=== PATIENT | female | born 1965 | race Caucasian/White ===

== ENCOUNTER 2022-05-29 15:59 | Day surgery (SDC) | payer OTHER ==
[~2022-05-29] VITALS: Ht 162.7 cm; Wt 52.3 kg
[~2022-05-29 15:59] MED LIST: ADAL40SY SQ; ALEN10TA8 PO; ERGO1250 PO; FAMO20TA25 PO; FURO40TA4 PO; HYDR-700 PO; LACT10SO27 PO; LORA10TA7 PO; MEGE40TA5 PO; MELA10TA2 PO; NITR-65 PO; PANT40TA2 PO; PANT40TA52 PO; PARO10TA3 PO; POTA10TA37 PO; SENN15TA5 PO; SPIR100T PO; SPIR100T4 PO; SUCR1TAB PO; TRM50T PO; VITA-189 PO
[2022-05-29] MEDS ORDERED: fentaNYL INJ 100 MCG/2 ML AMP IVP STA (16:19)
[2022-05-29 16:25] LABS: NEUTROPHILS % (AUTO) 82 % (42-75)
--- NOTE | 2022-05-29 16:25 | ED Head Injury ---
General Chief Complaint: Abdominal/GI Problems Stated Complaint: VOMITING BLOOD Source: patient Exam Limitations: no limitations History of Present Illness Date Seen by Provider: May 29, 2022 Time Seen by Provider: 16:21 Initial Comments Patient is a 57-year-old female who presents ED with head pain, vomiting blood. She states Saturday she slipped on some ice falling hitting the back of her head on the floor in her kitchen. No loss of conscious or blood thinners. She had a throbbing headache but did take some ibuprofen and Tylenol. She states she slept most of the day on Saturday. Attempted to walk her dog a few times but but felt dizzy lightheaded. She has had some hot flashes with chills. She states she has attempted to eat but has had decreased appetite. No visual changes, unilateral muscle weakness. She states last night she threw up for the first time. Threw up twice today and noted blood clots described as dark in her blood. Her last episode she noticed some bright red spots. Denies any specific abdominal pain but did have some cramping in her abdomen secondary to the vomit. She has been taking ibuprofen with improvement of her head pain. Denies alcohol use history of GI bleed. Denies of any rectal bleeding, urinary symptoms. She also has associated neck pain with her headache. Head pain has improved some. She states she has had intermittent dizziness with head pain secondary to the fall. Denies fever,, middle lower back pain, dysuria, hemat uria, current chest pain. She also reports indigestion with some chest discomfort at this time Allergies and Home Medications Allergies Coded Allergies: Sulfa (Sulfonamide Antibiotics) (Verified Allergy, Unknown, 05/29/22) cortisone (Verified Allergy, Unknown, 05/29/22) Patient Home Medication List Home Medication List Reviewed: Yes Adalimumab (Humira Pen) 40 Mg/0.4 Ml [email or web address], 40 MG INJ EVERY 14 DAYS, (Reported) Entered as Reported by: TILA DE LA GARZA on 05/30/22 1010 Last Action: Reviewed Alendronate Sodium (Alendronate Sodium) 10 Mg Tablet, 10 MG PO HS, (Reported) Entered as Reported by: TILA DE LA GARZA on 05/30/22 1010 Last Action: Reviewed Calcium Carbonate (Calcium) 600 Mg Calcium (1500 Mg) Tablet, 600 MG PO DAILY, (Reported) Entered as Reported by: TILA DE LA GARZA on 05/30/221009 Last Action: Reviewed Chlorpheniramine Maleate (Chlortabs) 4 Mg Tablet, 4-8 MG PO BID PRN for ALLERGY SYMPTOMS, (Reported) Entered as Reported by: TILA DE LA GARZA on 05/30/221009 Last Action: Reviewed Cyanocobalamin (Vitamin B-12) (Vitamin B-12) 500 Mcg Tablet, 500 MCG PO DAILY, (Reported) Entered as Reported by: TILA DE LA GARZA on 05/30/221009 Last Action: Reviewed Furosemide (Furosemide) 40 Mg Tablet, 40 MG PO DAILY, (Reported) Entered as Reported by: TILA DE LA GARZA on 05/30/221009 Last Action: Reviewed Hydroxyzine HCl (Hydroxyzine HCl) 25 Mg Tablet, 25 MG PO DAILY, (Reported) Entered as Reported by: TILA DE LA GARZA on 05/30/221009 Last Action: Reviewed Lactulose (Lactulose) 10 Gram/15 Ml Solution, 15 ML PO BID, (Reported) Entered as Reported by: TILA DE LA GARZA on 05/30/221009 Last Action: Reviewed Pantoprazole Sodium (Pantoprazole Sodium) 40 Mg Tablet.dr, 40 MG PO BID, (Reported) Entered as Reported by: TILA DE LA GARZA on 05/30/221009 Last Action: Reviewed Sennosides (Laxative) 25 Mg Tablet, 50 MG PO BID, (Reported) Entered as Reported by: TILA DE LA GARZA on 05/30/221009 Last Action: Reviewed Spironolactone (Spironolactone) 100 Mg Tablet, 100 MG PO HS, (Reported) Entered as Reported by: TILA DE LA GARZA on 05/30/221009 Last Action: Reviewed Discontinued Medications Sennosides (Laxative Pills) 15 Mg Tablet, 15 MG PO, (Reported) Discontinued Reason: Duplicate Order Entered as Reported by: TILA DE LA GARZA on 05/30/221009 Last Action: Discontinued Review of Systems Review of Systems Constitutional: chills; No diaphoresis; malaise, weakness Eyes: Denies Blindness, Denies Blurred Vision, Denies Drainage, Denies Photophobia, Denies Previous Injury, Denies Contact Lenses Ears, Nose, Mouth, Throat: denies ear pain, denies ear discharge Respiratory: No cough, No dyspnea on exertion Cardiovascular: chest pain Gastrointestinal: abdominal pain, hematemesis, heartburn, nausea, vomiting Genitourinary: No decreased output, No discharge Musculoskeletal: No back pain, No joint pain; muscle pain, muscle stiffness, neck pain Skin: No change in color, No change in hair/nails All Other Systems Reviewed Negative Unless Noted: Yes Physical Exam Vital Signs Vital Signs - First Documented 05/29/22 05/29/22 15:59 21:05 Temp 36.8 Pulse 107 Resp 18 B/P (MAP) 115/79 (91) Pulse Ox 100 O2 Delivery Room Air Capillary Refill : Height, Weight, BMI Height: '" Weight: lbs. oz. kg; BMI Method: General Appearance: WD/WN, no apparent distress HEENT: PERRL/EOMI, normal ENT inspection, TMs normal, pharynx normal Neck: non-tender, full range of motion, normal inspection Cardiovascular: regular rate, rhythm, no edema, no gallop, no JVD, no murmur Respiratory: chest non-tender, lungs clear, normal breath sounds, no respiratory distress, no accessory muscle use Gastrointestinal: normal bowel sounds, non tender, soft, no organomegaly, no pulsatile mass Back: normal inspection, no CVA tenderness Extremities: normal range of motion, non-tender, normal inspection, no pedal e ashley, no calf tenderness Skin: normal color, warm/dry Candi Coma Score Best Eye Response: (4) Open Spontaneously Best Verbal Response: (5) Oriented Best Motor Response: (6) Obeys Commands Samaria Total: 15 Progress/Results/Core Measures Results/Orders Lab Results Laboratory Tests Test 05/29/22 16:04 05/29/22 17:02 05/29/22 17:45 05/30/22 05:32 Range/Units White Blood Count 4.2 L 2.5 L 4.3-11.0 10^3/uL Red Blood Count 3.28 L 2.95 L 3.80-5.11 10^6/uL Hemoglobin 8.2 L 7.5 L 11.5-16.0 g/dL Hematocrit 28 L 25 L 35-52 % Mean Corpuscular Volume 85 86 80-99 fL Mean Corpuscular Hemoglobin 25 25 25-34 pg Mean Corpuscular Hemoglobin Concent 30 L 30 L 32-36 g/dL Red Cell Distribution Width 19.4 H 20.0 H 10.0-14.5 % Platelet Count 46 L 30 *L 130-400 10^3/uL Mean Platelet Volume 9.0-12.2 fL Immature Granulocyte % (Auto) 1 0 % Neutrophils (%) (Auto) 82 H 60 42-75 % Lymphocytes (%) (Auto) 10 L 25 12-44 % Monocytes (%) (Auto) 6 10 0-12 % Eosinophils (%) (Auto) 2 5 0-10 % Basophils (%) (Auto) 1 1 0-10 % Neutrophils # (Auto) 3.5 1.5 L 1.8-7.8 10^3/uL Lymphocytes # (Auto) 0.4 L 0.6 L 1.0-4.0 10^3/uL Monocytes # (Auto) 0.3 0.2 0.0-1.0 10^3/uL Eosinophils # (Auto) 0.1 0.1 0.0-0.3 10^3/uL Basophils # (Auto) 0.0 0.0 0.0-0.1 10^3/uL Immature Granulocyte # (Auto) 0.0 0.0 0.0-0.1 10^3/uL Percent Immature Platelet Fraction 8.3 H 8.4 H 0.0-7.6 % Prothrombin Time 18.0 H 12.2-14.7 SEC INR Comment 1.4 0.8-1.4 Activated Partial Thromboplast Time 38 H 24-35 SEC Sodium Level 136 137 135-145 MMOL/L Potassium Level 3.2 L 3.3 L 3.6-5.0 MMOL/L Chloride Level 104 109 H 98-107 MMOL/L Carbon Dioxide Level 17 L 17 L 21-32 MMOL/L Anion Gap 15 H 11 5-14 MMOL/L Blood Urea Nitrogen 8 5 L 7-18 MG/DL Creatinine 0.75 0.59 L 0.60-1.30 MG/DL Estimat Glomerular Filtration Rate 93 106 BUN/Creatinine Ratio 11 8 Glucose Level 129 H 83 70-105 MG/DL Calcium Level 8.3 L 7.1 L 8.5-10.1 MG/DL Corrected Calcium 9.1 8.5-10.1 MG/DL Total Bilirubin 2.2 H 0.1-1.0 MG/DL Aspartate Amino Transf (AST/SGOT) 122 H 5-34 U/L Alanine Aminotransferase (ALT/SGPT) 43 0-55 U/L Alkaline Phosphatase 133 40-136 U/L Troponin I < 0.028 <0.028 NG/ML Total Protein 6.7 6.4-8.2 GM/DL Albumin 3.0 L 3.2-4.5 GM/DL Lipase 161 H 8-78 U/L Serum Alcohol < 10 <10 MG/DL Urine Color YELLOW Urine Clarity SL CLOUDY Urine pH 6.0 5-9 Urine Specific Bryan 1.025 H 1.016-1.022 Urine Protein 2+ H NEGATIVE Urine Glucose (UA) NEGATIVE NEGATIVE Urine Ketones 1+ H NEGATIVE Urine Nitrite POSITIVE H NEGATIVE Urine Bilirubin 2+ H NEGATIVE Urine Urobilinogen 2.0 < = 1.0 MG/DL Urine Leukocyte Esterase 2+ H NEGATIVE Urine RBC (Auto) TRACE-I H NEGATIVE Urine RBC NONE /HPF Urine WBC 50-100 H /HPF Urine Squamous Epithelial Cells 10-25 H /HPF Urine Renal Epithelial Cells NONE /HPF Urine Crystals PRESENT H /LPF Urine Calcium Oxalate Crystals FEW H /LPF Urine Bacteria LARGE H /HPF Urine Casts NONE /LPF Urine Mucus LARGE H /LPF Urine Culture Indicated YES Urine Opiates Screen NEGATIVE NEGATIVE Urine Oxycodone Screen NEGATIVE NEGATIVE Urine Methadone Screen NEGATIVE NEGATIVE Urine Propoxyphene Screen NEGATIVE NEGATIVE Urine Barbiturates Screen NEGATIVE NEGATIVE Ur Tricyclic Antidepressants Screen NEGATIVE NEGATIVE Urine Phencyclidine Screen NEGATIVE NEGATIVE Urine Amphetamines Screen NEGATIVE NEGATIVE Urine Methamphetamines Screen NEGATIVE NEGATIVE Urine Benzodiazepines Screen NEGATIVE NEGATIVE Urine Cocaine Screen NEGATIVE NEGATIVE Urine Cannabinoids Screen NEGATIVE NEGATIVE Lactic Acid Level 1.25 0.50-2.00 MMOL/L Micro Results Microbiology 05/29/22 Urine Culture - Preliminary, Resulted Escherichia coli My Orders Orders - JORDY FAY Ct Head/Cervical Spine Wo (05/29/22 16:16) Cbc With Automated Diff (05/29/22 16:16) Comprehensive Metabolic Panel (05/29/22 16:16) Partial Thromboplastin Time (05/29/22 16:16) Protime With Inr (05/29/22 16:16) Chest 1 View, Ap/Pa Only (05/29/22 16:16) Ekg Tracing (05/29/22 16:16) Troponin I Chase (05/29/22 16:16) Pantoprazole Injection (Protonix Injecti (05/29/22 16:30) Fentanyl Inj (Sublimaze Injection) (05/29/22 16:19) Alcohol (05/29/22 16:44) Urinalysis (05/29/22 16:44) Drug Screen Stat (Urine) (05/29/22 16:44) Ct Abdomen/Pelvis W (05/29/22 16:51) Ns Iv 1000 Ml (Sodium Chloride 0.9%) (05/29/22 16:52) Iohexol Injection (Omnipaque 350 Mg/Ml 1 (05/29/22 17:00) Received Contrast (Hold Metformin- Contr (05/29/22 17:00) Ns (Ivpb) (Sodium Chloride 0.9% Ivpb Bag (05/29/22 17:00) Urine Culture (05/29/22 17:02) Lactic Acid Analyzer (05/29/22 17:28) Blood Culture (05/29/22 17:28) Ceftriaxone 1 Gm Pre-Mix (Rocephin 1 Gm (05/29/22 17:28) Blood Culture (05/29/22 18:20) Lipase (05/29/22 18:36) Occult Blood Stool (05/29/22 19:11) Medications Given in ED Vital Signs/I&O 05/29/22 05/30/22 05/30/22 05/30/22 23:30 01:00 03:30 06:32 Temp 37.6 36.7 Pulse 107 94 95 88 Resp 20 18 B/P (MAP) 110/69 (83) 108/66 (80) Pulse Ox 96 99 O2 Delivery Room Air Room Air 05/30/22 07:54 Temp 37.0 Pulse 89 Resp 18 B/P (MAP) 109/55 (73) Pulse Ox 98 O2 Delivery Room Air 05/30/22 00:00 Intake Total 1000 ml Balance 1000 ml Comment Sinus tachycardia, 115 bpm, QRS duration 87 MS, QTc 425 MS. Departure Communication (Admissions) Time/Spoke to Admitting Phy: 19:[address] Jimenez Communication (PCP) Patient neuro exam unremarkable. Tenderness to occipital and parietal scalp. Patient CT scan of the head and cervical neck was negative for hemorrhaging or fracture. Sinus tachycardia. Blood cultures were ordered secondary to white blood count of 4.2 and tachycardia. She was afebrile. Urinalysis positive for UTI. Patient was given dose of Rocephin. Normal lactic acid. Patient has been having concussion-like symptoms with dizziness, headache, and nausea but reports generalized abdominal discomfort and pain that developed. Hematemesis today. Refused rectal exam. She is not on any blood thinners or excessive NSAID use. History of alcohol abuse. Patient was given 40 mg IV Protonix. She was started on a liter of fluid. Patient had a hemoglobin 8.2 and platelets of 46. Slight elevated coags. She states she does see a liver specialist at . Patient total bilirubin 2.2. Liver enzymes within normal limits except AST of 122. Hypokalemia 3.2. CT abdomen pelvis showed gallbladder wall thickening. Portal hypertension noted. She has no right upper quadrant tenderness suggesting cholecystitis. She did have edema around the duodenum and pancreas suggesting pancreatitis. Pancreas was 161. May have form of duodenitis. No varioceles. History of gastric ulcers. No vomiting here in the ER. Liver cirrhosis noted. No ascites. Due to her hemoglobin and hematemesis and current complaints patient will be admitted for further evaluation. Surgical consult was discussed with Dr. Foote. Likely need EGD for evaluation of hematemesis. clear fluids at this time with recheck lab work in the morning according to Surgery. Continue monitoring hemoglobin. Patient was discussed with Dr. Jimenez who accepts patient. Impression Primary Impression: Hematemesis Additional Impressions: Cirrhosis Head injury UTI (urinary tract infection) Anemia Pancreatitis Disposition: ADMITTED INPATIENT Condition: Stable Admissions Decision to Admit Reason: Admit from ER (General) Decision to Admit/Date: May 29, 2022 Time/Decision to Admit Time: 19:45 JORDY FAY May 29, 2022 16:24
[2022-05-29 16:27] LABS: BASOPHILS % (AUTO) 1 % (0-10); CHLORIDE 104 MMOL/L (98-107); EOSINOPHILS # (AUTO) 0.1 10^3/uL (0.0-0.3); EOSINOPHILS % (AUTO) 2 % (0-10); HEMATOCRIT 28 % (35-52); HEMOGLOBIN 8.2 g/dL (11.5-16.0); LYMPHOCYTES # (AUTO) 0.4 10^3/uL (1.0-4.0); LYMPHOCYTES % (AUTO) 10 % (12-44); MEAN CORPUSCULAR HEMOGLOBIN 25 pg (25-34); MEAN CORPUSCULAR HGB CONC 30 g/dL (32-36); MEAN CORPUSCULAR VOLUME 85 fL (80-99); MONOCYTES # (AUTO) 0.3 10^3/uL (0.0-1.0); MONOCYTES % (AUTO) 6 % (0-12); NEUTROPHILS # (AUTO) 3.5 10^3/uL (1.8-7.8); PLATELET COUNT 46 10^3/uL (130-400); POTASSIUM 3.2 MMOL/L (3.6-5.0); SODIUM 136 MMOL/L (135-145); WHITE BLOOD COUNT 4.2 10^3/uL (4.3-11.0)
[2022-05-29 16:28] LABS: CALCIUM 8.3 MG/DL (8.5-10.1)
[2022-05-29 16:30] LABS: GLUCOSE 129 MG/DL (70-105); TOTAL PROTEIN 6.7 GM/DL (6.4-8.2)
[2022-05-29] MEDS ORDERED: PANTOPRAZOLE 40 MG (PROTONIX) VIAL IV ONE (16:30)
[2022-05-29 16:31] LABS: BILIRUBIN,TOTAL 2.2 MG/DL (0.1-1.0); CARBON DIOXIDE 17 MMOL/L (21-32)
[2022-05-29 16:32] LABS: INR 1.4 (0.8-1.4)
[2022-05-29 16:33] LABS: ALKALINE PHOSPHATASE 133 U/L (40-136); CREATININE SERUM 0.75 MG/DL (0.60-1.30); GFR ESTIMATED 93
[2022-05-29 16:34] LABS: BUN/CREATININE RATIO 11
[2022-05-29 16:36] LABS: ALANINE AMINOTRANSFERASE 43 U/L (0-55)
--- NOTE | 2022-05-29 16:49 | Diagnostic Imaging Report ---
INDICATION: Chest pain. COMPARISON: 10/06/2020. FINDINGS: Single frontal view of the chest demonstrates normal heart size and pulmonary vascularity. The lungs are well aerated and clear. No large pleural effusion or pneumothorax is seen. The visualized osseous structures show no acute abnormalities. IMPRESSION: No acute cardiopulmonary process. Dictated by: Dictated on workstation # [id number]
[2022-05-29] MEDS ORDERED: NS IV 1000 ML 1,000 ML IV STA (16:52)
[2022-05-29] MEDS ORDERED: IOHEXOL 350 MG/ML 100 ML (OMNIPAQUE 350) VIAL IV ONE (17:00)
[2022-05-29] MEDS ORDERED: NS 100 ML (IVPB) BAG IV ONE (17:00)
[2022-05-29] MEDS ORDERED: HOLD METFORMIN - RECEIVED CONTRAST 20 ML VIAL IV SCH (17:00)
[2022-05-29 17:11] LABS: BILIRUBIN,URINE 2+ (NEGATIVE); CLARITY,URINE SL CLOUDY; COLOR,URINE YELLOW; GLUCOSE, URINE (UA) NEGATIVE (NEGATIVE); KETONES,URINE 1+ (NEGATIVE); LEUKOCYTE ESTERASE ,URINE 2+ (NEGATIVE); NITRITE,URINE POSITIVE (NEGATIVE); PROTEIN,URINE 2+ (NEGATIVE)
[2022-05-29 17:17] LABS: BACTERIA,URINE LARGE /HPF; CALCIUM OXALATE CRYSTALS,UR FEW /LPF; WBC,URINE 50-100 /HPF
[2022-05-29 17:21] LABS: AMPHETAMINE SCREEN, URINE NEGATIVE (NEGATIVE); BENZODIAZEPINES SCREEN URINE NEGATIVE (NEGATIVE); CANNABINOID SCREEN, URINE NEGATIVE (NEGATIVE); COCAINE SCREEN URINE NEGATIVE (NEGATIVE)
[2022-05-29 17:22] LABS: BARBITURATE SCREEN URINE NEGATIVE (NEGATIVE); METHADONE STAT NEGATIVE (NEGATIVE); OPIATE SCREEN URINE NEGATIVE (NEGATIVE); OXYCODONE STAT NEGATIVE (NEGATIVE); PROPOXYPHENE STAT NEGATIVE (NEGATIVE); TRICYCLIC ANTIDEPRESSANTS SCRE NEGATIVE (NEGATIVE)
[2022-05-29] MEDS ORDERED: cefTRIAXone 1 GM PRE-MIX 50 ML IV STA (17:28)
--- NOTE | 2022-05-29 18:17 | Diagnostic Imaging Report ---
PROCEDURE: CT head and CT cervical spine without contrast. TECHNIQUE: Multiple contiguous axial images were obtained through the brain and cervical spine without the use of intravenous contrast. Sagittal and coronal reformations through the cervical spine were then performed. Auto Exposure Controls were utilized during the CT exam to meet ALARA standards for radiation dose reduction. INDICATION: Fall striking the head has resulted in nausea and vomiting. There is some hematemesis. COMPARISON: No priors. FINDINGS: HEAD: There is some premature cortical atrophy, predominantly along the bifrontal convexities through the vertex. An acute-appearing extra-axial fluid collection is not present and there is no subdural or epidural hematoma. No calvarial fracture deformity. No hemo-sinus. No pneumocephalus. No findings of parenchymal or ventricular blood. There is no hydrocephalus. No findings of an elevation of the intracranial pressures. The basilar cisterns are patent. There is no sulcal effacement. No mass or mass effect. Mastoid air cells and middle ear cavities are clear. There are intracranial carotid atherosclerotic vascular calcifications. CERVICAL SPINE: Body heights are maintained, alignment anatomic. There is [id number] cervical spondylosis with disc space narrowing and endplate sclerosis with osteophytes. There was however no substantial bony canal or foraminal stenosis. The hyoid is intact. The tracheal cartilage and structures of the larynx showed no traumatic deformity. No paraspinal mass, hemorrhage, or fluid collection. Degenerative changes to the facets without facet diastasis. No splaying in the posterior elements. No fracture demonstrated. Thoracic inlet and visualized pulmonary apices appeared nonacute. IMPRESSION: 1. CT head: Premature cortical atrophy with atherosclerotic vascular calcifications. No hemorrhage, edema, fracture, or evidence for elevated pressures however. 2. Cervical spine reveals mild degenerative changes aligned anatomically with no fracture, substantial stenosis, or traumatic malalignment. Dictated by: Dictated on workstation # [id number]
--- NOTE | 2022-05-29 18:30 | Diagnostic Imaging Report ---
PROCEDURE: CT abdomen and pelvis with contrast. TECHNIQUE: Multiple contiguous axial images were obtained through the abdomen and pelvis after administration of intravenous contrast. Auto Exposure Controls were utilized during the CT exam to meet ALARA standards for radiation dose reduction. All CT scans use one or more of the following dose optimizing techniques: automated exposure control, MA and/or KvP adjustment based on patient size and exam type or iterative reconstruction. INDICATION: Fall resulted in a pain, nausea and vomiting. The patient has some hematemesis. COMPARED with CT chest, abdomen and pelvis 10/06/2020. FINDINGS: The lung bases are nonacute. Marked dilatation of the tortuous and redundant periumbilical vein, communicates with the intrahepatic left portal vein, presumed spontaneous decompression in the setting of portal hypertension. Nonfocal mild splenomegaly persists. There are no findings of hepatosplenic laceration. The adrenal glands negative. The kidneys unobstructed. There are gallstones present with some thickening of the gallbladder wall. Gallbladder wall thickening is often seen in the setting of portal venous hypertension and is present on the previous exam. This however could confound detection of acute cholecystitis in the appropriate clinical scenario. We note some thickening of the pancreas as well as some right upper quadrant edema adjacent to the duodenum and the pancreatic head and neck. Mild pancreatitis could not be excluded. No evidence for pancreatic abscess, necrosis, pseudocyst or other acute fluid collection however. The regional inflammatory changes could also be on the basis of cholecystitis or even duodenitis. No outlet obstruction. The stomach itself appeared unremarkable. The splenic vein is patent. Directional flow cannot be addressed at CT. The intra and extrahepatic portal veins are patent. The cava is patent. The aorta is nonaneurysmal. There is no abdominal pelvic ascites. There is no bowel obstruction. There is no bile duct dilatation. No radiopaque choledocholithiasis. There is no fracture. IMPRESSION: 1. Chronic changes of cirrhosis and portal hypertension but no ascites. 2. Cholelithiasis with thickening of the gallbladder morton which may be inflammatory or reflect changes of portal hypertension itself. There is some regional stranding adjacent to the proximal pancreas as well as the proximal duodenum. Pancreatitis could not be excluded. Duodenitis an additional consideration. No viscus perforation or outlet obstruction. No biliary dilatation or opaque choledocholithiasis. No pseudocyst, hematoma or acute fluid collection. 3. No post traumatic osseous or soft tissue pathology found. The lung bases nonacute. Dictated by: Dictated on workstation # [id number]
[2022-05-29 21:14] VITALS: BP 118/65
[2022-05-29] MEDS ORDERED: PROMETHAZINE INJ 25 MG/ML (PHENERGAN) AMP IVP PRN (22:45)
[2022-05-29] MEDS ORDERED: NS IV 1000 ML 1,000 ML IV SCH (22:45)
[2022-05-29] MEDS: ONDANSETRON 4 MG/2 ML (SDV) Z0FRAN IV PRN (22:54)
[2022-05-29 23:30] VITALS: BP 110/69
[2022-05-30 03:30] VITALS: BP 108/66
[2022-05-30 06:28] LABS: BASOPHILS % (AUTO) 1 % (0-10); HEMOGLOBIN 7.5 g/dL (11.5-16.0)
[2022-05-30 06:30] LABS: EOSINOPHILS # (AUTO) 0.1 10^3/uL (0.0-0.3); EOSINOPHILS % (AUTO) 5 % (0-10); HEMATOCRIT 25 % (35-52); LYMPHOCYTES # (AUTO) 0.6 10^3/uL (1.0-4.0); LYMPHOCYTES % (AUTO) 25 % (12-44); MEAN CORPUSCULAR HEMOGLOBIN 25 pg (25-34); MEAN CORPUSCULAR HGB CONC 30 g/dL (32-36); MEAN CORPUSCULAR VOLUME 86 fL (80-99); MONOCYTES # (AUTO) 0.2 10^3/uL (0.0-1.0); MONOCYTES % (AUTO) 10 % (0-12); NEUTROPHILS # (AUTO) 1.5 10^3/uL (1.8-7.8); NEUTROPHILS % (AUTO) 60 % (42-75); WHITE BLOOD COUNT 2.5 10^3/uL (4.3-11.0)
[2022-05-30 06:34] LABS: PLATELET COUNT 30 10^3/uL (130-400)
[2022-05-30 06:55] LABS: POTASSIUM 3.3 MMOL/L (3.6-5.0)
[2022-05-30 06:56] LABS: CALCIUM 7.1 MG/DL (8.5-10.1)
[2022-05-30 07:00] LABS: CREATININE SERUM 0.59 MG/DL (0.60-1.30)
--- NOTE | 2022-05-30 07:53 | Consultation - Surgery ---
BOTELLOASAEL Gwyn 05/30/22 0753: History of Present Illness History of Present Illness Patient Consulted On(phi/time) 05/30/22 07:48 Date Seen by Provider: May 30, 2022 Time Seen by Provider: 07:10 Reason for Visit: Hematemesis, fall, UTI History of Present Illness Ms. Coto is a 57 year old female with a past medical history significant for cirrhosis of the liver, osteoporosis, psoriasis, and arthritis who presented to the ED yesterday after a fall and hematemesis. She reports on Saturday she was in her kitchen when she slipped on ice and fell. She hit the back of her head. She denies a loss of consciousness. She reports associated nausea, vomiting, GERD, fevers, chills, and a loss of appetite after she fell. She also reports an ongoing headache. She also reports multiple episodes of hematemsis that started yesterday morning. She reports after that she was dizzy and had abdominal cramping. She endorses associated melena before the hematemesis started. she denies a history of hematemesis. She says nothing made it worse and the medicine given to her at the hospital helped make her feel better. She denies esophageal varices. She reports seeing a doctor at every 6 months for a checkup on her liver cirrhosis. Allergies and Home Medications Allergies Coded Allergies: Sulfa (Sulfonamide Antibiotics) (Verified Allergy, Unknown, 05/29/22) cortisone (Verified Allergy, Unknown, 05/29/22) Patient Home Medication List Adalimumab (Humira) 40 Mg/0.4 Ml Syringekit, 40 MG SQ EVERY 2 WEEKS, (Reported) Entered as Reported by: TILA DE LA GARZA on 11/29/21 1021 Adalimumab (Humira Pen) 40 Mg/0.4 Ml Pen.ij.kit, 40 MG INJ EVERY 14 DAYS, (Repo rted) Entered as Reported by: TILA DE L AGARZA on 05/30/22 1010 Last Action: Reviewed Alendronate Sodium (Alendronate Sodium) 10 Mg Tablet, 10 MG PO DAILY, (Reported) Entered as Reported by: TILA DE LA GARZA on 11/29/21 1021 Alendronate Sodium (Alendronate Sodium) 10 Mg Tablet, 10 MG PO HS, (Reported) Entered as Reported by: TILA DE LA GARZA on 05/30/22 1010 Last Action: Reviewed Calcium Carbonate (Calcium) 600 Mg Calcium (1500 Mg) Tablet, 600 MG PO DAILY, (Reported) Entered as Reported by: TILA DE LA GARZA on 05/30/221009 Last Action: Reviewed Chlorpheniramine Maleate (Chlortabs) 4 Mg Tablet, 4-8 MG PO BID PRN for ALLERGY SYMPTOMS, (Reported) Entered as Reported by: TILA DE LA GARZA on 05/30/221009 Last Action: Reviewed Cyanocobalamin (Vitamin B-12) (Vitamin B-12) 500 Mcg Tablet, 500 MCG PO DAILY, (Reported) Entered as Reported by: TILA DE LA GARZA on 05/30/22 101 Last Action: Reviewed Furosemide (Furosemide) 40 Mg Tablet, 40 MG PO DAILY, (Reported) Entered as Reported by: TILA DE LA GARZA on 11/29/21 102 Furosemide (Furosemide) 40 Mg Tablet, 40 MG PO DAILY, (Reported) Entered as Reported by: TILA DE LA GARZA on 05/30/221009 Last Action: Reviewed Hydroxyzine HCl (Hydroxyzine HCl) 25 Mg Tablet, 25 MG PO HS, (Reported) Entered as Reported by: TILA DE LA GARZA on 11/29/21 1021 Hydroxyzine HCl (Hydroxyzine HCl) 25 Mg Tablet, 25 MG PO DAILY, (Reported) Entered as Reported by: TILA DE LA GARZA on 05/30/221009 Last Action: Reviewed Lactulose (Lactulose) 10 Gm/15 Ml Solution, 15 ML PO DAILY, (Reported) Entered as Reported by: TILA DE LA GARZA on 11/29/21 102 Lactulose (Lactulose) 10 Gram/15 Ml Solution, 15 ML PO BID, (Reported) Entered as Reported by: TILA DE LA GARZA on 05/30/221009 Last Action: Reviewed Loratadine (Loratadine) 10 Mg Tablet, 10 MG PO DAILY, (Reported) Entered as Reported by: TILA DE LA GARZA on 11/29/21 1021 Megestrol Acetate (Megestrol Acetate) 40 Mg Tablet, 40 MG PO BID Prescribed by: OSITO JOHN on 11/29/21 1044 Melatonin (Melatonin) 10 Mg Tablet, 10 MG PO HS, (Reported) Entered as Reported by: TILA DE LA GARZA on 11/29/21 1021 Nitrofurantoin Monohyd/M-Cryst (Macrobid 100 mg Capsule) 100 Mg Capsule, 1 TAB PO BID Prescribed by: OSITO JOHN on 11/29/21 1044 Pantoprazole Sodium (Pantoprazole Sodium) 40 Mg Tablet.dr, 40 MG PO BID, (Reported) Entered as Reported by: TILA DE LA GARZA on 11/29/21 1021 Pantoprazole Sodium (Pantoprazole Sodium) 40 Mg Tablet.dr, 40 MG PO BID, (Reported) Entered as Reported by: TILA DE LA GARZA on 05/30/22 1010 Last Action: Reviewed Sennosides (Ex-Lax) 15 Mg Tab.chew, 15 MG PO HS, (Reported) Entered as Reported by: TILA DE LA GARZA on 11/29/21 1021 Sennosides (Laxative) 25 Mg Tablet, 50 MG PO BID, (Reported) Entered as Reported by: TILA DE LA GARZA on 05/30/22 101 Last Action: Reviewed Spironolactone (Spironolactone) 100 Mg Tablet, 100 MG PO DAILY, (Reported) Entered as Reported by: TILA DE LA GARZA on 11/29/21 1021 Spironolactone (Spironolactone) 100 Mg Tablet, 100 MG PO HS, (Reported) Entered as Reported by: TILA DE LA GARZA on 05/30/22 101 Last Action: Reviewed Vitamin B Complex (B Complex) 1 Each Tablet, 1 EACH PO DAILY Prescribed by: OSITO JOHN on 11/29/21 1044 Discontinued Medications Sennosides (Laxative Pills) 15 Mg Tablet, 15 MG PO, (Reported) Discontinued Reason: Duplicate Order Entered as Reported by: TILA DE LA GARZA on 05/30/22 101 Last Action: Discontinued Past Xgxnetb-[id number]-Brmdrf Hx Patient Social History Smoking Status: Never a Smoker Alcohol Use?: Yes (Glass of wine 2-3 times per week) Have you traveled recently?: No Surgeries History of Surgeries: Yes Surgeries: Appendectomy, Oophorectomy (Right), Orthopedic (Arm surgery) Respiratory History of Respiratory Disorde: No Cardiovascular History of Cardiac Disorders: No Neurological History of Neurological Disord: Yes Neurological Disorders: Headaches /Migraines Genitourinary History of Genitourinary Disor: No Gastrointestinal History of Gastrointestinal Di: Yes Gastrointestinal Disorders: Gastroesophageal Reflux, Liver Disease/Jaundice Musculoskeletal History of Musculoskeletal Dis: Yes Musculoskeletal Disorders: Osteoporosis, Arthritis Endocrine History of Endocrine Disorders: No HEENT History of HEENT Disorders: Yes HEENT Disorders: Cataract Loss of Vision: Denies Hearing Impairment: Denies Cancer History of Cancer: No Psychosocial History of Psychiatric Problem: No Integumentary History of Skin or Integumenta: Yes Skin/Integumentary Disorders: Psoriasis Family Medical History Significant Family History: Other Conditions/Hx (Arthritis in mother. Denies any other family history. No history of cancer.) Review of Systems-General Constitutional: chills, dizziness, fever, weakness EENTM: epistaxis; No vision loss Respiratory: cough; No short of breath Cardiovascular: No chest pain, No palpitations Gastrointestinal: abdominal pain, hematemesis, melena, nausea, vomiting Musculoskeletal: neck pain, other (Head pain) Psychiatric/Neurological: Headache; Denies Tremors Physical Exam-General Problems Physical Exam Vital Signs Vital Signs - First Documented 05/29/22 05/29/22 15:59 21:05 Temp 36.8 Pulse 107 Resp 18 B/P (MAP) 115/79 (91) Pulse Ox 100 O2 Delivery Room Air Capillary Refill : General Appearance: WD/WN, no apparent distress HEENT: PERRL/EOMI; No pale conjunctivae (R), No pale conjunctivae (L) Neck: non-tender, supple Respiratory: chest non-tender, lungs clear, normal breath sounds, no respiratory distress, no accessory muscle use Cardiovascular: normal peripheral pulses, no murmur, tachycardia Peripheral Pulses: 2+ Radial Pulses (R), 2+ Radial Pulses (L) Gastrointestinal: non tender, soft; No distended, No guarding, No rebound Extremities: non-tender, no pedal edema, other (Tenderness to palpation of occiput) Neurologic/Psychiatric: alert, normal mood/affect, oriented x 3 Skin: normal color, warm/dry; No jaundice Data Review Labs Laboratory Tests 05/29/22 16:04: White Blood Count 4.2L, Red Blood Count 3.28L, Hemoglobin 8.2L, Hematocrit 28L, Mean Corpuscular Volume 85, Mean Corpuscular Hemoglobin 25, Mean Corpuscular Hemoglobin Concent 30L, Red Cell Distribution Width 19.4H, Platelet Count 46L, Mean Platelet Volume , Immature Granulocyte % (Auto) 1, Neutrophils (%) (Auto) 82H, Lymphocytes (%) (Auto) 10L, Monocytes (%) (Auto) 6, Eosinophils (%) (Auto) 2, Basophils (%) (Auto) 1, Neutrophils # (Auto) 3.5, Lymphocytes # (Auto) 0.4L, Monocytes # (Auto) 0.3, Eosinophils # (Auto) 0.1, Basophils # (Auto) 0.0, Immature Granulocyte # (Auto) 0.0, Percent Immature Platelet Fraction 8.3H, Prothrombin Time 18.0H, INR Comment 1.4, Activated Partial Thromboplast Time 38H , Sodium Level 136, Potassium Level 3.2L, Chloride Level 104, Carbon Dioxide Level 17L, Anion Gap 15H, Blood Urea Nitrogen 8, Creatinine 0.75, Estimat Glomerular Filtration Rate 93, BUN/Creatinine Ratio 11, Glucose Level 129H, Calcium Level 8.3L, Corrected Calcium 9.1, Total Bilirubin 2.2H, Aspartate Amino Transf (AST/SGOT) 122H, Alanine Aminotransferase (ALT/SGPT) 43, Alkaline Phosphatase 133, Troponin I < 0.028, Total Protein 6.7, Albumin 3.0L, Lipase 161H, Serum Alcohol < 10 05/29/22 17:02: Urine Color YELLOW, Urine Clarity SL CLOUDY, Urine pH 6.0, Urine Specific [place] 1.025H, Urine Protein 2+H, Urine Glucose (UA) NEGATIVE, Urine Ketones 1+H, Urine Nitrite POSITIVEH, Urine Bilirubin 2+H, Urine Urobilinogen 2.0, Urine Leukocyte Esterase 2+H, Urine RBC (Auto) TRACE-IH, Urine RBC NONE, Urine WBC 50- 100H, Urine Squamous Epithelial Cells 10-25H, Urine Renal Epithelial Cells NONE, Urine Crystals PRESENTH, Urine Calcium Oxalate Crystals FEWH, Urine Bacteria LARGEH, Urine Casts NONE, Urine Mucus LARGEH, Urine Culture Indicated YES, Urine Opiates Screen NEGATIVE, Urine Oxycodone Screen NEGATIVE, Urine Methadone Screen NEGATIVE, Urine Propoxyphene Screen NEGATIVE, Urine Barbiturates Screen NEGATIVE, Ur Tricyclic Antidepressants Screen NEGATIVE, Urine Phencyclidine Screen NEGATIVE, Urine Amphetamines Screen NEGATIVE, Urine Methamphetamines Screen NEGATIVE, Urine Benzodiazepines Screen NEGATIVE, Urine Cocaine Screen NEGATIVE, Urine Cannabinoids Screen NEGATIVE 05/29/22 17:45: Lactic Acid Level 1.25 05/30/22 05:32: White Blood Count 2.5L, Red Blood Count 2.95L, Hemoglobin 7.5L, Hematocrit 25L, Mean Corpuscular Volume 86, Mean Corpuscular Hemoglobin 25, Mean Corpuscular Hemoglobin Concent 30L, Red Cell Distribution Width 20.0H, Platelet Count 30*L, Mean Platelet Volume , Immature Granulocyte % (Auto) 0, Neutrophils (%) (Auto) 60, Lymphocytes (%) (Auto) 25, Monocytes (%) (Auto) 10, Eosinophils (%) (Auto) 5, Basophils (%) (Auto) 1, Neutrophils # (Auto) 1.5L, Lymphocytes # (Auto) 0.6L, Monocytes # (Auto) 0.2, Eosinophils # (Auto) 0.1, Basophils # (Auto) 0.0, Immature Granulocyte # (Auto) 0.0, Percent Immature Platelet Fraction 8.4H, Sodium Level 137, Potassium Level 3.3L, Chloride Level 109H, Carbon Dioxide Level 17L, Anion Gap 11, Blood Urea Nitrogen 5L, Creatinine 0.59L, Estimat Glomerular Filtration Rate 106, BUN/Creatinine Ratio 8, Glucose Level 83, Calcium Level 7.1L Assessment/Plan Assessment/Plan Assessment/Plan Hematemesis History of stomach ulcers History of cirrhosis of the liver Denies esophageal varices Acute vs. chronic pancreatitis Inflammation on CT cannot exclude pancreatitis Elevated lipase at 161 Transaminitis AST:ALT > 2:1 122:[address] Cholelithiasis UTI per UA H/o cirrhosis of the liver Leukopenia Anemia Thrombocytopenia Hypokalemia Continue IVF and IV pantoprazole Ceftriaxone given for UTI coverage NPO at this time Anti-emetics as needed Potassium replacement Follow hgb, transfuse as needed Plan for EGD to look for source of hematemesis HOMAR DAY DO 05/30/221913: History of Present Illness History of Present Illness Time Seen by Provider: 18:12 History of Present Illness Surgery asked to consult regarding hematemesis and anemia. When I spoke to pt she stated she has not had hematemesis before, but does have "very bad heartburn". She states I did her colonoscopy about a year ago; I checked and actually the colonoscopy was about 1 1/2 years ago. When I asked if she had ever had an EGD before she said no. When I looked up the last visit that I saw her it was 09/12/20; for hematochezia and anemia. At that time both EGD and colonoscopy were performed. Findings on EGD were non-specific Gastritis and Colonoscopy showed some friable tissue but no infection or ulcers in colon. Allergies and Home Medications Allergies Coded Allergies: Sulfa (Sulfonamide Antibiotics) (Verified Allergy, Unknown, 05/29/22) cortisone (Verified Allergy, Unknown, 05/29/22) Patient Home Medication List Home Medication List Reviewed: Yes Adalimumab (Humira) 40 Mg/0.4 Ml Syringekit, 40 MG SQ EVERY 2 WEEKS, (Reported) Entered as Reported by: TILA DE LA GARZA on 11/29/21 1021 Adalimumab (Humira Pen) 40 Mg/0.4 Ml Pen.ij.kit, 40 MG INJ EVERY 14 DAYS, (Reported) Entered as Reported by: TILA DE LA GARZA on 05/30/22 1010 Last Action: Reviewed Alendronate Sodium (Alendronate Sodium) 10 Mg Tablet, 10 MG PO DAILY, (Reported) Entered as Reported by: TILA DE LA GARZA on 11/29/21 1021 Alendronate Sodium (Alendronate Sodium) 10 Mg Tablet, 10 MG PO HS, (Reported) Entered as Reported by: TILA DE LA GARZA on 05/30/22 101 Last Action: Reviewed Calcium Carbonate (Calcium) 600 Mg Calcium (1500 Mg) Tablet, 600 MG PO DAILY, (Reported) Entered as Reported by: TILA DE LA GARZA on 05/30/22 101 Last Action: Reviewed Chlorpheniramine Maleate (Chlortabs) 4 Mg Tablet, 4-8 MG PO BID PRN for ALLERGY SYMPTOMS, (Reported) Entered as Reported by: TILA DE LA GARZA on 05/30/22 101 Last Action: Reviewed Cyanocobalamin (Vitamin B-12) (Vitamin B-12) 500 Mcg Tablet, 500 MCG PO DAILY, (Reported) Entered as Reported by: TILA DE LA GARZA on 05/30/22 101 Last Action: Reviewed Furosemide (Furosemide) 40 Mg Tablet, 40 MG PO DAILY, (Reported) Entered as Reported by: TILA DE LA GARZA on 11/29/21 1021 Furosemide (Furosemide) 40 Mg Tablet, 40 MG PO DAILY, (Reported) Entered as Reported by: TILA DE LA GARZA on 05/30/22 1010 Last Action: Reviewed Hydroxyzine HCl (Hydroxyzine HCl) 25 Mg Tablet, 25 MG PO HS, (Reported) Entered as Reported by: TILA DE LA GARZA on 11/29/21 1021 Hydroxyzine HCl (Hydroxyzine HCl) 25 Mg Tablet, 25 MG PO DAILY, (Reported) Entered as Reported by: TILA DE LA GARZA on 05/30/22 1010 Last Action: Reviewed Lactulose (Lactulose) 10 Gm/15 Ml Solution, 15 ML PO DAILY, (Reported) Entered as Reported by: TILA DE LA GARZA on 11/29/21 102 Lactulose (Lactulose) 10 Gram/15 Ml Solution, 15 ML PO BID, (Reported) Entered as Reported by: TILA DE LA GARZA on 05/30/22 101 Last Action: Reviewed Loratadine (Loratadine) 10 Mg Tablet, 10 MG PO DAILY, (Reported) Entered as Reported by: TILA DE LA GARZA on 11/29/21 1021 Megestrol Acetate (Megestrol Acetate) 40 Mg Tablet, 40 MG PO BID Prescribed by: OSITO JOHN on 11/29/21 1044 Melatonin (Melatonin) 10 Mg Tablet, 10 MG PO HS, (Reported) Entered as Reported by: TILA DE LA GARZA on 11/29/21 1021 Nitrofurantoin Monohyd/M-Cryst (Macrobid 100 mg Capsule) 100 Mg Capsule, 1 TAB PO BID Prescribed by: OSITO JOHN on 11/29/21 1044 Pantoprazole Sodium (Pantoprazole Sodium) 40 Mg Tablet.dr, 40 MG PO BID, (Reported) Entered as Reported by: TILA DE LA GARZA on 11/29/21 1021 Pantoprazole Sodium (Pantoprazole Sodium) 40 Mg Tablet.dr, 40 MG PO BID, (Reported) Entered as Reported by: TILA DE LA GARZA on 05/30/22 101 Last Action: Reviewed Sennosides (Ex-Lax) 15 Mg Tab.chew, 15 MG PO HS, (Reported) Entered as Reported by: TILA DE LA GARZA on 11/29/21 1021 Sennosides (Laxative) 25 Mg Tablet, 50 MG PO BID, (Reported) Entered as Reported by: TILA DE LA GARZA on 05/30/22 101 Last Action: Reviewed Spironolactone (Spironolactone) 100 Mg Tablet, 100 MG PO DAILY, (Reported) Entered as Reported by: TILA DE LA GARZA on 11/29/21 1021 Spironolactone (Spironolactone) 100 Mg Tablet, 100 MG PO HS, (Reported) Entered as Reported by: TILA DE LA GARZA on 05/30/22 1010 Last Action: Reviewed Vitamin B Complex (B Complex) 1 Each Tablet, 1 EACH PO DAILY Prescribed by: OSITO JOHN on 11/29/21 1044 Discontinued Medications Sennosides (Laxative Pills) 15 Mg Tablet, 15 MG PO, (Reported) Discontinued Reason: Duplicate Order Entered as Reported by: TILA DE LA GARZA on 05/30/22 1010 Last Action: Discontinued Past Ilhwqha-Coueqs-Ufkbch Hx Patient Social History Alcohol Use?: Yes (Glass of wine 2-3 times per week) Surgeries History of Surgeries: Yes Surgeries: Appendectomy, Oophorectomy (Right), Orthopedic (Arm surgery) Respiratory History of Respiratory Disorde: No Cardiovascular History of Cardiac Disorders: No Neurological History of Neurological Disord: Yes Neurological Disorders: Headaches /Migraines Genitourinary History of Genitourinary Disor: No Gastrointestinal History of Gastrointestinal Di: Yes Gastrointestinal Disorders: Gastroesophageal Reflux, Liver Disease/Jaundice Musculoskeletal History of Musculoskeletal Dis: Yes Musculoskeletal Disorders: Osteoporosis, Arthritis Endocrine History of Endocrine Disorders: No HEENT History of HEENT Disorders: Yes HEENT Disorders: Cataract Loss of Vision: Denies Hearing Impairment: Denies Cancer History of Cancer: No Psychosocial History of Psychiatric Problem: No Integumentary History of Skin or Integumenta: Yes Skin/Integumentary Disorders: Psoriasis Family Medical History Significant Family History: Other Conditions/Hx (Arthritis in mother. Denies any other family history. No history of cancer.) Review of Systems-General Constitutional: chills, dizziness, fever, weakness EENTM: epistaxis; No vision loss Respiratory: cough; No short of breath Cardiovascular: No chest pain, No palpitations Gastrointestinal: abdominal pain, hematemesis, melena, nausea, vomiting Genitourinary: No dysuria, No frequency Musculoskeletal: joint pain, joint swelling, neck pain, other (Head pain) Skin: other (psoriasis) Psychiatric/Neurological: Headache; Denies Tremors Physical Exam-General Problems Physical Exam General Appearance: no apparent distress, thin Eyes: Bilateral Eye PERRL, Bilateral Eye EOMI HEENT: pharynx normal; No pale conjunctivae (R), No pale conjunctivae (L) Neck: non-tender, supple Respiratory: chest non-tender, lungs clear, normal breath sounds, no respiratory distress, no accessory muscle use Cardiovascular: normal peripheral pulses, no murmur, tachycardia Gastrointestinal: non tender, soft; No distended, No guarding, No rebound Rectal: deferred Extremities: non-tender, no pedal edema Neurologic/Psychiatric: alert, normal mood/affect, oriented x 3 Skin: normal color, warm/dry; No jaundice Assessment/Plan Assessment/Plan Assessment/Plan Hematemesis History of stomach ulcers History of cirrhosis of the liver Denies esophageal varices Acute vs. chronic pancreatitis Inflammation on CT cannot exclude pancreatitis Elevated lipase at 161 Transaminitis AST:ALT > 2:1 122:[address] Cholelithiasis UTI per UA H/o cirrhosis of the liver Leukopenia Anemia Thrombocytopenia Hypokalemia Continue IVF and IV pantoprazole Ceftriaxone given for UTI coverage NPO at this time Anti-emetics as needed Potassium replacement Follow hgb, transfuse as needed Plan to make NPO after MN and EGD tomorrow to look for source of hematemesis Supervisory-Addendum Brief Verification & Attestation Participated in pt care: history, MDM, physical Personally performed: exam, history, MDM, supervision of care Care discussed with: Medical Student Procedures: n/a Verification and Attestation of Medical Student E/M Service A medical student performed and documented this service. I then reviewed and verified all information documented by the medical student and made modifications to such information, when appropriate. I personally performed a physical exam, medical decision making and then discussed any differences between the notes and made revisions as necessary to create one note. Homar Day , 05/30/22 , 19:29 ASAEL BOTELLO May 30, 2022 07:53 HOMAR DAY DO May 30, 2022 19:14
[2022-05-30 07:54] VITALS: BP 109/55
[2022-05-30] MEDS: fentaNYL INJ 100 MCG/2 ML AMP IV PRN ×2 (08:29→18:05)
[2022-05-30] MEDS: ONDANSETRON 4 MG/2 ML (SDV) Z0FRAN IV PRN ×2 (08:31→18:05)
[2022-05-30] MEDS: PANTOPRAZOLE 40 MG (PROTONIX) VIAL IV SCH ×2 (08:31→21:17)
[2022-05-30] MEDS ORDERED: ALEN10TA8 PO (10:10)
[2022-05-30] MEDS ORDERED: SENN15TA11 PO (10:10)
[2022-05-30] MEDS ORDERED: CHLO-159 PO (10:10)
[2022-05-30] MEDS ORDERED: CALC600T91 PO (10:10)
[2022-05-30] MEDS ORDERED: ADAL40PE5 INJ (10:10)
[2022-05-30] MEDS ORDERED: PANT40TA52 PO (10:10)
[2022-05-30] MEDS ORDERED: SPIR100T4 PO (10:10)
[2022-05-30] MEDS ORDERED: CYAN500T8 PO (10:10)
[2022-05-30] MEDS ORDERED: SENN25TA10 PO (10:10)
[2022-05-30] MEDS ORDERED: LACT10SO3 PO (10:10)
[2022-05-30] MEDS ORDERED: FURO40TA4 PO (10:10)
[2022-05-30] MEDS ORDERED: HYDR-700 PO (10:10)
[2022-05-30 11:32] VITALS: BP 99/54
[2022-05-30 16:04] VITALS: BP 113/72
--- NOTE | 2022-05-30 16:42 | History & Physical ---
HPI History of Present Illness: 57 yo F with known cirrhois that presented to the ER after she began vomiting blood. Patient has a long h/o EtOH abuse but states that she has been cutting down. States that saturday she fell in her house because she slipped on ice and then saturday she began to have abdominal pain, N/V. Denies ever being in the hospital for withdraw. States that she has had a colonoscopy years ago that was normal but she has never had an EGD. Denies having any of these symptoms in the past. Source: patient, family Exam Limitations: no limitations Date seen by provider: May 30, 2022 Time Seen by Provider: 10:05 Attending Physician PCP Admitting Physician: Chinyere Jimenez MD Attending Physician: Chinyere Jimenez MD Consult Date of Admission May 29, 2022 at 19:41 Home Medications Home Medications Reviewed patient Home Medication Reconciliation performed by pharmacy medication reconciliations hvac installation technician and/or nursing. Patients Allergies have been reviewed. Allergies Coded Allergies: Sulfa (Sulfonamide Antibiotics) (Verified Allergy, Unknown, 05/29/22) cortisone (Verified Allergy, Unknown, 05/29/22) [id number] Hx Patient Social History Smoking Status: Never a Smoker Alcohol Use?: Yes (Glass of wine 2-3 times per week) Have you traveled recently?: No Immunizations Up To Date Influenza Vaccine Up-to-Date: Yes; Up-to-Date Past Medical History EtOH abuse Cirrhois Family Medical History Significant Family History: Other Conditions/Hx (Arthritis in mother. Denies any other family history. No history of cancer.) Family History: Patient reports no known family medical history. Review of Systems ([facility]) Constitutional: malaise, weakness EENTM: no symptoms reported; No mouth pain, No nose congestion, No nose pain Respiratory: no symptoms reported; No cough, No dyspnea on exertion, No short of breath Cardiovascular: no symptoms reported; No chest pain, No edema, No palpitations Gastrointestinal: abdominal pain, hematemesis, loss of appetite, nausea, vomiting Genitourinary: dysuria, frequency; No hematuria Musculoskeletal: no symptoms reported Skin: no symptoms reported Psychiatric/Neurological: Headache Reviewed Test Results Reviewed Test Results Lab Laboratory Tests Test 05/29/22 17:02 05/29/22 17:45 05/30/22 05:32 Range/Units Urine Color YELLOW Urine Clarity SL CLOUDY Urine pH 6.0 5-9 Urine Specific [place] 1.025 H 1.016-1.022 Urine Protein 2+ H NEGATIVE Urine Glucose (UA) NEGATIVE NEGATIVE Urine Ketones 1+ H NEGATIVE Urine Nitrite POSITIVE H NEGATIVE Urine Bilirubin 2+ H NEGATIVE Urine Urobilinogen 2.0 < = 1.0 MG/DL Urine Leukocyte Esterase 2+ H NEGATIVE Urine RBC (Auto) TRACE-I H NEGATIVE Urine RBC NONE /HPF Urine WBC 50-100 H /HPF Urine Squamous Epithelial Cells 10-25 H /HPF Urine Renal Epithelial Cells NONE /HPF Urine Crystals PRESENT H /LPF Urine Calcium Oxalate Crystals FEW H /LPF Urine Bacteria LARGE H /HPF Urine Casts NONE /LPF Urine Mucus LARGE H /LPF Urine Culture Indicated YES Urine Opiates Screen NEGATIVE NEGATIVE Urine Oxycodone Screen NEGATIVE NEGATIVE Urine Methadone Screen NEGATIVE NEGATIVE Urine Propoxyphene Screen NEGATIVE NEGATIVE Urine Barbiturates Screen NEGATIVE NEGATIVE Ur Tricyclic Antidepressants Screen NEGATIVE NEGATIVE Urine Phencyclidine Screen NEGATIVE NEGATIVE Urine Amphetamines Screen NEGATIVE NEGATIVE Urine Methamphetamines Screen NEGATIVE NEGATIVE Urine Benzodiazepines Screen NEGATIVE NEGATIVE Urine Cocaine Screen NEGATIVE NEGATIVE Urine Cannabinoids Screen NEGATIVE NEGATIVE Lactic Acid Level 1.25 0.50-2.00 MMOL/L White Blood Count 2.5 L 4.3-11.0 10^3/uL Red Blood Count 2.95 L 3.80-5.11 10^6/uL Hemoglobin 7.5 L 11.5-16.0 g/dL Hematocrit 25 L 35-52 % Mean Corpuscular Volume 86 80-99 fL Mean Corpuscular Hemoglobin 25 25-34 pg Mean Corpuscular Hemoglobin Concent 30 L 32-36 g/dL Red Cell Distribution Width 20.0 H 10.0-14.5 % Platelet Count 30 *L 130-400 10^3/uL Mean Platelet Volume 9.0-12.2 fL Immature Granulocyte % (Auto) 0 % Neutrophils (%) (Auto) 60 42-75 % Lymphocytes (%) (Auto) 25 12-44 % Monocytes (%) (Auto) 10 0-12 % Eosinophils (%) (Auto) 5 0-10 % Basophils (%) (Auto) 1 0-10 % Neutrophils # (Auto) 1.5 L 1.8-7.8 10^3/uL Lymphocytes # (Auto) 0.6 L 1.0-4.0 10^3/uL Monocytes # (Auto) 0.2 0.0-1.0 10^3/uL Eosinophils # (Auto) 0.1 0.0-0.3 10^3/uL Basophils # (Auto) 0.0 0.0-0.1 10^3/uL Immature Granulocyte # (Auto) 0.0 0.0-0.1 10^3/uL Percent Immature Platelet Fraction 8.4 H 0.0-7.6 % Sodium Level 137 135-145 MMOL/L Potassium Level 3.3 L 3.6-5.0 MMOL/L Chloride Level 109 H 98-107 MMOL/L Carbon Dioxide Level 17 L 21-32 MMOL/L Anion Gap 11 5-14 MMOL/L Blood Urea Nitrogen 5 L 7-18 MG/DL Creatinine 0.59 L 0.60-1.30 MG/DL Estimat Glomerular Filtration Rate 106 BUN/Creatinine Ratio 8 Glucose Level 83 70-105 MG/DL Calcium Level 7.1 L 8.5-10.1 MG/DL Physical Exam-([facility]) Physical Exam Vital Signs VS - Last 72 Hours, by Label 05/29/22 05/29/22 05/29/22 05/29/22 15:59 21:05 21:14 22:00 Temp 36.8 37.8 Pulse 107 107 103 Resp 18 20 B/P (MAP) 115/79 (91) 118/65 (82) Pulse Ox 100 96 97 O2 Delivery Room Air Room Air 05/29/22 05/30/22 05/30/22 05/30/22 23:30 01:00 03:30 06:32 Temp 37.6 36.7 Pulse 107 94 95 88 Resp 20 18 B/P (MAP) 110/69 (83) 108/66 (80) Pulse Ox 96 99 O2 Delivery Room Air Room Air 05/30/22 05/30/22 05/30/22 05/30/22 07:54 11:32 12:28 16:04 Temp 37.0 37.0 36.6 Pulse 89 98 109 94 Resp 18 20 17 B/P (MAP) 109/55 (73) 99/54 (69) 113/72 (86) Pulse Ox 98 95 98 O2 Delivery Room Air Room Air Room Air Capillary Refill : General Appearance: WD/WN, no apparent distress HEENT: PERRL/EOMI Neck: non-tender, full range of motion, supple Respiratory: chest non-tender, lungs clear, normal breath sounds, no respiratory distress Cardiovascular: normal peripheral pulses, regular rate, rhythm, no edema, no murmur Gastrointestinal: normal bowel sounds, non tender, soft Back: no CVA tenderness, no vertebral tenderness Extremities: normal range of motion, non-tender, normal inspection, no pedal edema, no calf tenderness, normal capillary refill Neurologic/Psychiatric: speech and language tutor II-XII nml as tested, no motor/sensory deficits, alert, normal mood/affect, oriented x 3 Skin: normal color, warm/dry Lymphatic: no adenopathy Assessment/Plan Assessment/Plan Admission Status: Inpatient Order (span 2 midnights) Reason for Inpatient Admission: Requiring close monitor for UGI bleed (1) Upper GI bleed Status: Acute Assessment & Plan: - Not actively bleeding at this time, continue to monitor Hgb, Continue IV protonix, Consult General surgery for EGD (2) Thrombocytopenia Status: Acute (3) UTI (urinary tract infection) Status: Acute Assessment & Plan: - Continue Rocephin daily x 5 days Qualifiers: Qualified Codes: N30.01 - Acute cystitis with hematuria (4) Pancreatitis Status: Acute Qualifiers: Qualified Codes: K85.20 - Alcohol induced acute pancreatitis without necrosis or infection (5) History of cirrhosis of liver Status: Acute (6) Alcohol dependence Status: Acute CHINYERE JIMENEZ MD May 30, 2022 16:42
[2022-05-30] MEDS ORDERED: KCL 20 MEQ TAB (K-DUR) PO NR (17:00)
[2022-05-30 19:03] VITALS: BP 105/61
[2022-05-30 23:50] VITALS: BP 119/75
[2022-05-31] VITALS (9 sets, daily range): BP systolic 83–124; BP diastolic 49–74
[2022-05-31 06:43] LABS: BASOPHILS % (AUTO) 1 % (0-10); EOSINOPHILS # (AUTO) 0.1 10^3/uL (0.0-0.3)
[2022-05-31 06:45] LABS: EOSINOPHILS % (AUTO) 4 % (0-10); HEMATOCRIT 25 % (35-52); HEMOGLOBIN 7.5 g/dL (11.5-16.0); LYMPHOCYTES # (AUTO) 0.4 10^3/uL (1.0-4.0); LYMPHOCYTES % (AUTO) 31 % (12-44); MEAN CORPUSCULAR HEMOGLOBIN 25 pg (25-34); MEAN CORPUSCULAR HGB CONC 30 g/dL (32-36); MEAN CORPUSCULAR VOLUME 86 fL (80-99); MEAN PLATELET VOLUME 12.4 fL (9.0-12.2); MONOCYTES # (AUTO) 0.2 10^3/uL (0.0-1.0); MONOCYTES % (AUTO) 13 % (0-12); NEUTROPHILS # (AUTO) 0.7 10^3/uL (1.8-7.8); NEUTROPHILS % (AUTO) 51 % (42-75)
[2022-05-31 06:52] LABS: WHITE BLOOD COUNT 1.4 10^3/uL (4.3-11.0)
[2022-05-31 06:53] LABS: PLATELET COUNT 28 10^3/uL (130-400)
[2022-05-31 07:00] LABS: ALBUMIN 2.5 GM/DL (3.2-4.5)
[2022-05-31 07:01] LABS: POTASSIUM 3.3 MMOL/L (3.6-5.0)
[2022-05-31 07:02] LABS: CALCIUM 7.3 MG/DL (8.5-10.1)
[2022-05-31 07:03] LABS: TOTAL PROTEIN 5.8 GM/DL (6.4-8.2)
[2022-05-31 07:05] LABS: BILIRUBIN,TOTAL 1.6 MG/DL (0.1-1.0)
[2022-05-31 07:07] LABS: CREATININE SERUM 0.55 MG/DL (0.60-1.30)
--- NOTE | 2022-05-31 07:47 | Progress Note - Surgery ---
ASAEL BOTELLO 05/31/22 0747: Subjective Date Seen by a Provider: May 31, 2022 Time Seen by a Provider: 07:10 Subjective/Events-last exam Ms. Coto is being followed for hematemesis and s/p fall. She reports she is doing well this morning with no pain, problems, or concerns. She says she is feeling well and ready for her EGD today. She denies any new episodes of hematemesis, nausea, or vomiting. She reports her headache has improved. Review of Systems General: No Chills, No Fatigue HEENT: No Head Aches, No Visual Changes Pulmonary: No Dyspnea, No Cough Cardiovascular: No: Chest Pain, Palpitations Gastrointestinal: No: Nausea, Vomiting, Abdominal Pain Focused Exam Lactate Level 05/29/22 17:45: Lactic Acid Level 1.25 Objective Exam Vital Signs Date Time Temp Pulse Resp B/P (MAP) Pulse Ox O2 Delivery O2 Flow Rate FiO2 05/31/22 07:38 36.8 86 18 124/74 (91) 98 Room Air 05/31/22 04:00 36.9 80 18 119/60 (79) 95 Room Air 05/31/22 01:07 85 05/30/22 23:50 36.7 83 18 119/75 (90) 98 Room Air 05/30/22 20:36 98 Room Air 05/30/22 19:03 37.0 88 18 105/61 (76) 95 Room Air 05/30/22 19:00 92 05/30/22 16:04 36.6 94 17 113/72 (86) 98 Room Air 05/30/22 12:28 109 05/30/22 11:32 37.0 98 20 99/54 (69) 95 Room Air 05/30/22 08:00 98 Room Air 05/30/22 07:54 37.0 89 18 109/55 (73) 98 Room Air I & O 05/31/22 07:00 Intake Total 1210 ml Output Total 300 ml Balance 910 ml Capillary Refill : General Appearance: No Apparent Distress, WD/WN HEENT: PERRL/EOMI, Moist Mucous Membranes Neck: Non Tender, Supple Respiratory: Chest Non Tender, Lungs Clear, Normal Breath Sounds, No Accessory Muscle Use, No Respiratory Distress Cardiovascular: Regular Rate, Rhythm, No Edema, Normal Peripheral Pulses Peripheral Pulses: 2+ Radial Pulses (R), 2+ Radial Pulses (L) Gastrointestinal: non tender, soft; No distended, No guarding, No rebound Extremity: Non Tender, No Pedal Edema Neurologic/Psychiatric: Alert, Oriented x3, Normal Mood/Affect Skin: Normal Color, Warm/Dry Results Lab Laboratory Tests 05/31/22 06:19: White Blood Count 1.4*L, Red Blood Count 2.96L, Hemoglobin 7.5L, Hematocrit 25L, Mean Corpuscular Volume 86, Mean Corpuscular Hemoglobin 25, Mean Corpuscular Hemoglobin Concent 30L, Red Cell Distribution Width 20.4H, Platelet Count 28*L, Mean Platelet Volume 12.4H, Immature Granulocyte % (Auto) 1, Neutrophils (%) (Auto) 51, Lymphocytes (%) (Auto) 31, Monocytes (%) (Auto) 13H, Eosinophils (%) (Auto) 4, Basophils (%) (Auto) 1, Neutrophils # (Auto) 0.7L, Lymphocytes # (Auto) 0.4L, Monocytes # (Auto) 0.2, Eosinophils # (Auto) 0.1, Basophils # (Auto) 0.0, Immature Granulocyte # (Auto) 0.0, Percent Immature Platelet Fraction 6.8, Sodium Level 136, Potassium Level 3.3L, Chloride Level 110H, Carbon Dioxide Level 18L, Anion Gap 8, Blood Urea Nitrogen 3L, Creatinine 0.55L, Estimat Glomerular Filtration Rate 108, BUN/Creatinine Ratio 5, Glucose Level 90, Calcium Level 7.3L, Corrected Calcium 8.5, Total Bilirubin 1.6H, Aspartate Amino Transf (AST/SGOT) 86H, Alanine Aminotransferase (ALT/SGPT) 31, Alkaline Phosphatase 95, Total Protein 5.8L, Albumin 2.5L Microbiology 05/29/22 Blood Culture - Preliminary, Resulted No growth 05/29/22 Urine Culture - Preliminary, Resulted Mixed Bacterial Elena Escherichia coli Assessment/Plan Assessment/Plan Assessment/Plan Hematemesis History of stomach ulcers History of cirrhosis of the liver Denies esophageal varices Acute vs. chronic pancreatitis Inflammation on CT cannot exclude pancreatitis Elevated lipase at 161 Transaminitis AST:ALT > 2:1 122:43 upon admission 86:31 this morning Duodenitis Inflammation on CT Cholelithiasis UTI per UA H/o cirrhosis of the liver Leukopenia Low at 1.4 this morning, trending down. Anemia Thrombocytopenia Hypokalemia Continue IVF and IV pantoprazole Ceftriaxone given for UTI coverage NPO at this time Anti-emetics as needed Potassium replacement Follow hgb, transfuse as needed Monitor WBC EGD today. TEDDY DAY DO 05/31/22 1053: Subjective Time Seen by a Provider: 10:44 Subjective/Events-last exam Pt seen and examined, no new complaints. She denies any abdominal pain and no more episodes of hematemesis. Review of Systems General: No Chills HEENT: No Head Aches, No Visual Changes Pulmonary: No Dyspnea, No Cough Cardiovascular: No: Chest Pain, Palpitations Gastrointestinal: No: Nausea, Vomiting, Abdominal Pain Objective Exam General Appearance: No Apparent Distress, WD/WN HEENT: PERRL/EOMI, Moist Mucous Membranes Respiratory: Chest Non Tender, Lungs Clear, Normal Breath Sounds, No Accessory Muscle Use, No Respiratory Distress Cardiovascular: Regular Rate, Rhythm, No Murmur Gastrointestinal: non tender, soft; No distended, No guarding, No rebound Assessment/Plan Assessment/Plan Assessment/Plan Hematemesis History of stomach ulcers History of cirrhosis of the liver Denies esophageal varices Acute vs. chronic pancreatitis Inflammation on CT cannot exclude pancreatitis Elevated lipase at 161 Transaminitis AST:ALT > 2:1 122:43 upon admission 86:31 this morning Duodenitis Inflammation on CT Cholelithiasis UTI per UA H/o cirrhosis of the liver Leukopenia Low at 1.4 this morning, trending down. Anemia Thrombocytopenia - transfused 1 pack of platelets in anticipation of EGD today Hypokalemia Continue IVF and IV pantoprazole, Ceftriaxone given for UTI coverage, NPO for EGD, Anti-emetics as needed Potassium replacement, Follow hgb and transfuse as needed - hopefully will find reason during EGD Monitor WBC, EGD now; pt aware of possible risks and complications not limited to pain, bleeding, esophageal tear or rupture and need for further procedure. She understands she is at risk for bleeding because of the low platelets and that is why she got platelets transfused. Supervisory-Addendum Brief Verification & Attestation Participated in pt care: history, MDM, physical Personally performed: exam, history, MDM, supervision of care Care discussed with: Medical Student Procedures: n/a Verification and Attestation of Medical Student E/M Service A medical student performed and documented this service. I then reviewed and verified all information documented by the medical student and made mod ifications to such information, when appropriate. I personally performed a physical exam, medical decision making and then discussed any differences between the notes and made revisions as necessary to create one note. Teddy Day , 05/31/22 , 10:52 ASAEL BOTELLO May 31, 2022 07:47 TEDDY DAY DO May 31, 2022 10:53
[2022-05-31] MEDS: PANTOPRAZOLE 40 MG (PROTONIX) VIAL IV SCH (08:05)
[2022-05-31] MEDS ORDERED: NS IV 500 ML 500 ML ONE (08:29)
[2022-05-31] MEDS ORDERED: LACTATED RINGERS 1,000 ML IV STA (10:41)
[2022-05-31] MEDS ORDERED: HURRICAINE EXT TUBE (BENZOCAINE) XX PRN (10:45)
[2022-05-31] MEDS ORDERED: LACTATED RINGERS 1,000 ML IV ONE (10:46)
[2022-05-31] MEDS ORDERED: MIDAZOLAM 2 MG/2 ML (VERSED) VIAL ONE (10:56)
[2022-05-31] MEDS ORDERED: PROPOFOL INJECTION 50 ML IV ONE (10:57)
--- NOTE | 2022-05-31 11:37 | Progress Note-Post Operative ---
Post-Operative Progess Note Surgeon (s)/Padding Gluer (s) Surgeon HOMAR DAY DO Padding Gluer: none Pre-Operative Diagnosis hematemesis, anemia, GERD Post-Operative Diagnosis Gastritis Hiatal hernia Procedure & Operative Findings Date of Procedure 05/31/22 Procedure Performed/Findings EGD PROCEDURE NOTE: After informed consent was obtained, the patient was brought to the endoscopy suite, placed in bed in left lateral decubitus position. She was administered IV sedation by the DIRECTOR COLLEGE who then monitored vitals the entire time, heart rate, blood pressure and pulse ox and the scope was inserted down the mouth through the esophagus into the stomach. On the way down, noted some mild esophagitis, took a picture, pushed into the stomach, pushed past the antrum into the duodenum. Duodenum looked good. Pulled back and noted some mild inflammation of the antrum, but noted moderate inflammation of the body of the stomach. Although I did not see any ulcers, causes of bleeding/hematemesis or sequelae of bleeding. I then retroflexed the scope and saw very small hiatal hernia and took a picture of this. I then pulled the scope into the GE junction, looked for any tears ([place]ia [place]) and took another picture of the GE junction. Pushed the scope back into the stomach, suctioned all the air out of the stomach. At this point pulled the scope up the esophagus and out the mouth. The patient tolerated the procedure, and she recovered in endoscopy suite. Anesthesia Type IV sedation by DIRECTOR COLLEGE Estimated Blood Loss Estimated blood loss (mL): none Specimens/Packing Specimens Removed none HOMAR DAY DO May 31, 2022 11:37
--- NOTE | 2022-05-31 12:57 | Discharge Summary ---
Diagnosis/Chief Complaint Date of Admission May 29, 2022 at 19:41 Date of Discharge Discharge Diagnosis Problems/Diagnosis: (1) Upper GI bleed Assessment & Plan: - Not actively bleeding at this time, continue to monitor Hgb, Continue IV protonix, Consult General surgery for EGD Status: Acute (2) Thrombocytopenia Status: Acute (3) UTI (urinary tract infection) Assessment & Plan: - Continue Rocephin daily x 5 days Qualifiers: Qualified Codes: N30.01 - Acute cystitis with hematuria Status: Acute (4) Pancreatitis Qualifiers: Qualified Codes: K85.20 - Alcohol induced acute pancreatitis without necrosis or infection Status: Acute (5) History of cirrhosis of liver Status: Acute (6) Alcohol dependence Status: Acute Chief Complaint/HPI Chief Complaint/HPI 57 yo F with known cirrhois that presented to the ER after she began vomiting blood. Patient has a long h/o EtOH abuse but states that she has been cutting down. States that saturday she fell in her house because she slipped on ice and then saturday she began to have abdominal pain, N/V. Denies ever being in the hospital for withdraw. States that she has had a colonoscopy years ago that was normal but she has never had an EGD. Denies having any of these symptoms in the past. Discharge Summary-Simple/Stand Consultations Discharge Physical Examination Allergies: Coded Allergies: Sulfa (Sulfonamide Antibiotics) (Verified Allergy, Unknown, 05/29/22) cortisone (Verified Allergy, Unknown, 05/29/22) Vitals & I&Os Vital Sign - Last 12Hours Date Time Temp Pulse Resp B/P (MAP) Pulse Ox O2 Delivery O2 Flow Rate FiO2 05/31/22 12:44 OxyMask 10.00 05/31/22 12:33 77 05/31/22 11:30 16 100 05/31/22 10:50 36.9 121/72 Intake and Output 05/31/22 00:00 Intake Total 1210 ml Output Total 300 ml Balance 910 ml Hospital Course See final discharge diagnosis. Discharge Instructions to patient/family Please see electronic discharge instructions given to patient. Discharge Medications Reviewed and agree with Discharge Medication list on patient's Discharge Instruction sheet CHINYERE FRANCIS MD May 31, 2022 12:57
[2022-05-31] MEDS ORDERED: CEFD300C3 PO (13:00)
--- NOTE | 2022-05-31 13:02 | Discharge Summary ---
Discharge [facility] Reconcile Patient Problems Problems Reviewed?: Yes Discharge Medications New, Converted or Re-Newed RX: Transmitted to Pharmacy New Medications: Cefdinir (Cefdinir) 300 Mg Capsule 300 MG PO BID for 3 Days, #6 CAP Continued Medications: Adalimumab (Humira Pen) 40 Mg/0.4 Ml [email or web address] 40 MG INJ EVERY 14 DAYS, EA Alendronate Sodium (Alendronate Sodium) 10 Mg Tablet 10 MG PO HS, TAB Calcium Carbonate (Calcium) 600 Mg Calcium (1500 Mg) Tablet 600 MG PO DAILY, TAB Chlorpheniramine Maleate (Chlortabs) 4 Mg Tablet 4-8 MG PO BID PRN for ALLERGY SYMPTOMS, TAB Cyanocobalamin (Vitamin B-12) (Vitamin B-12) 500 Mcg Tablet 500 MCG PO DAILY, TAB Furosemide (Furosemide) 40 Mg Tablet 40 MG PO DAILY, TAB Hydroxyzine HCl (Hydroxyzine HCl) 25 Mg Tablet 25 MG PO HS, TAB Lactulose (Lactulose) 10 Gram/15 Ml Solution 15 ML PO BID, ML Loratadine (Loratadine) 10 Mg Tablet 10 MG PO DAILY, TAB Megestrol Acetate (Megestrol Acetate) 40 Mg Tablet 40 MG PO BID, #60 TAB Melatonin (Melatonin) 10 Mg Tablet 10 MG PO HS, TAB Pantoprazole Sodium (Pantoprazole Sodium) 40 Mg Tablet.dr 40 MG PO BID, TAB Sennosides (Laxative) 25 Mg Tablet 50 MG PO BID, TAB TAKES 2 (25MG) TABS Spironolactone (Spironolactone) 100 Mg Tablet 100 MG PO DAILY, TAB Vitamin B Complex (B Complex) 1 Each Tablet 1 EACH PO DAILY, #30 TAB Discontinued Medications: Adalimumab (Humira) 40 Mg/0.4 Ml Syringekit 40 MG SQ EVERY 2 WEEKS, KIT Alendronate Sodium (Alendronate Sodium) 10 Mg Tablet 10 MG PO DAILY, TAB Furosemide (Furosemide) 40 Mg Tablet 40 MG PO DAILY, TAB Hydroxyzine HCl (Hydroxyzine HCl) 25 Mg Tablet 25 MG PO DAILY, TAB Lactulose (Lactulose) 10 Gm/15 Ml Solution 15 ML PO DAILY, EA Nitrofurantoin Monohyd/M-Cryst (Macrobid 100 mg Capsule) 100 Mg Capsule 1 TAB PO BID, #10 CAP Pantoprazole Sodium (Pantoprazole Sodium) 40 Mg Tablet.dr 40 MG PO BID, TAB LAST FILLED 10-02-2021 #60/30 DAY SUPPLY Sennosides (Ex-Lax) 15 Mg Tab.chew 15 MG PO HS, TAB Spironolactone (Spironolactone) 100 Mg Tablet 100 MG PO HS, TAB Patient Instructions Goal/Follow Up Appt: 1-[address] Read Patient Instructions: - Repeat CBC and CMP on Saturday Activity & Diet Discharge Diet: Low Sodium Diet Activity as Tolerated: Yes CHINYERE FRANCIS MD May 31, 2022 13:01
[2022-05-31] MEDS ORDERED: KCL 20 MEQ TAB (K-DUR) PO NR (13:15)
--- NOTE | 2022-05-31 14:41 | Anesthesia-General Post-Op ---
MAC Patient Condition Mental Status/LOC: Same as Preop Cardiovascular: Satisfactory Nausea/Vomiting: Absent Respiratory: Satisfactory Pain: Controlled Complications: Absent Post Op Complications Complications None Follow Up Care/Instructions Patient Instructions None needed. Anesthesiology Discharge Order Discharge Order Patient is doing well, no complaints, stable vital signs, no apparent adverse anesthesia problems. No complications reported per nursing. TOLU CAPUTO CRNA May 31, 2022 14:41
== END 2022-05-31 14:35 | disposition home or self-care (01) ==
LOC: ER 16:03 → EDBD 16:03 → 4TH 19:41 → UNDOADMOB 19:41 → 4TH 21:03 → SDC 21:03 → UNDODISOB 05-31 14:35 → SDC 05-31 14:35
PROVIDERS: ATTEND Family Medicine
DX: K44.9 Diaphragmatic hernia without obstruction or gangrene (principal); K21.00 Gastro-esophageal reflux disease with esophagitis, without bleeding; K29.71 Gastritis, unspecified, with bleeding; D64.9 Anemia, unspecified; K92.0 Hematemesis; D69.6 Thrombocytopenia, unspecified; N30.01 Acute cystitis with hematuria; K85.02 Idiopathic acute pancreatitis with infected necrosis; K70.30 Alcoholic cirrhosis of liver without ascites
CPT/HCPCS: 36415; 36430; 70450; 71045; 72125; 74177; 80048; 80053; 80306; 80320; 81000; 82728; 83540; 83550; 83605; 83690; 84484; 85025; 85610; 85730; 87040; 87077; 87088; 87186; 93005; G0378

== ENCOUNTER → 2022-06-19 | Outpatient (CLI) | payer OTHER ==
[~2022-06-19] MED LIST changes: +ADAL40PE5 INJ; +CALC600T91 PO; +CEFD300C3 PO; +CHLO-159 PO; +CYAN500T8 PO; +LACT10SO3 PO; +SENN15TA11 PO; +SENN25TA10 PO
[2022-06-19 15:25] LABS: EOSINOPHILS # (AUTO) 0.1 10^3/uL (0.0-0.3); HEMOGLOBIN 7.9 g/dL (11.5-16.0); MEAN CORPUSCULAR HEMOGLOBIN 24 pg (25-34); MEAN CORPUSCULAR VOLUME 81 fL (80-99); NEUTROPHILS # (AUTO) 1.6 10^3/uL (1.8-7.8)
[2022-06-19 15:26] LABS: BASOPHILS % (AUTO) 1 % (0-10); EOSINOPHILS % (AUTO) 4 % (0-10); HEMATOCRIT 26 % (35-52); LYMPHOCYTES # (AUTO) 0.7 10^3/uL (1.0-4.0); LYMPHOCYTES % (AUTO) 25 % (12-44); MEAN CORPUSCULAR HGB CONC 30 g/dL (32-36); MONOCYTES # (AUTO) 0.3 10^3/uL (0.0-1.0); MONOCYTES % (AUTO) 10 % (0-12); NEUTROPHILS % (AUTO) 59 % (42-75); WHITE BLOOD COUNT 2.8 10^3/uL (4.3-11.0)
[2022-06-19 15:28] LABS: PLATELET COUNT 111 10^3/uL (130-400)
[2022-06-19 15:35] LABS: INR 1.3 (0.8-1.4); PROTHROMBIN TIME PATIENT 16.8 SEC (12.2-14.7)
[2022-06-19 15:43] LABS: BILIRUBIN,TOTAL 1.1 MG/DL (0.1-1.0); CALCIUM 8.2 MG/DL (8.5-10.1); CREATININE SERUM 0.76 MG/DL (0.60-1.30); POTASSIUM 3.9 MMOL/L (3.6-5.0); TOTAL PROTEIN 6.6 GM/DL (6.4-8.2)
== END ==
LOC: LAB 14:45
PROVIDERS: ATTEND Nurse Practitioner Adult Health
DX: K70.30 Alcoholic cirrhosis of liver without ascites (principal)
CPT/HCPCS: 36415; 80053; 82105; 82306; 84590; 85025; 85610

== ENCOUNTER → 2022-07-03 | Outpatient (CLI) | payer OTHER ==
--- NOTE | 2022-07-03 13:02 | Diagnostic Imaging Report ---
INDICATION: Routine screening. COMPARISON: 06/21/2021. TECHNIQUE: 2D and 3D bilateral screening mammography was performed with CAD. FINDINGS: Both breasts are heterogeneously dense, limiting the sensitivity of mammography. No mass or malignant-appearing microcalcifications are seen. The axillae are unremarkable. IMPRESSION: No mammographic features suspicious for malignancy are identified. ACR BI-RADS Category 1: Negative. Result letter will be mailed to the patient. Note: At least 10% of breast cancer is not imaged by mammography. Dictated by: Dictated on workstation # [id number]
== END ==
LOC: RAD 11:40
PROVIDERS: ATTEND Pediatrics
DX: Z12.31 Encounter for screening mammogram for malignant neoplasm of breast (principal)
CPT/HCPCS: 77063; 77067

== ENCOUNTER 2022-07-06 20:25 | Emergency (ER) | payer OTHER ==
--- NOTE | 2022-07-06 20:46 | ED General ---
General Chief Complaint: Head/Cervical Problems Stated Complaint: VAZ Source of Information: Patient Exam Limitations: No Limitations History of Present Illness Date Seen by Provider: Jul 06, 2022 Time Seen by Provider: 20:45 Initial Comments To ER by EMS from home with reports of headache. EMS was called by her friends were unable to make contact with her, this was a welfare check. Upon arrival EMS found the patient in bed, a shopping cart in her living room with beer and wine in it. She states she has not had any alcohol except for one red beer early this morning. She did hit her head twice within the past 1 to 2 weeks. She has alcoholic cirrhosis and follows with Dr. Vann at the [facility] as well as Dr. Hayley Goldberg here. Timing/Duration: 2-3 Days Severity: Moderate Associated Systoms: Headaches Allergies and Home Medications Allergies Coded Allergies: Sulfa (Sulfonamide Antibiotics) (Verified Allergy, Unknown, 05/29/22) cortisone (Verified Allergy, Unknown, 05/29/22) Patient Home Medication List Home Medication List Reviewed: Yes Adalimumab (Humira Pen) 40 Mg/0.4 Ml Pen.[email or web address].kit, 40 MG INJ EVERY 14 DAYS, (Reported) Entered as Reported by: TILA DE LA GARZA on 05/30/22 1010 Alendronate Sodium (Alendronate Sodium) 10 Mg Tablet, 10 MG PO HS, (Reported) Entered as Reported by: TILA DE LA GARZA on 05/30/22 1010 Calcium Carbonate (Calcium) 600 Mg Calcium (1500 Mg) Tablet, 600 MG PO DAILY, (Reported) Entered as Reported by: TILA DE LA GARZA on 05/30/22 1010 Cefdinir (Cefdinir) 300 Mg Capsule, 300 MG PO BID Prescribed by: CHINYERE FRANCIS on 05/31/22 1300 Chlorpheniramine Maleate (Chlortabs) 4 Mg Tablet, 4-8 MG PO BID PRN for ALLERGY SYMPTOMS, (Reported) Entered as Reported by: TILA DE LA GARZA on 05/30/22 1010 Cyanocobalamin (Vitamin B-12) (Vitamin B-12) 500 Mcg Tablet, 500 MCG PO DAILY, (Reported) Entered as Reported by: TILA DE LA GARZA on 05/30/22 1010 Furosemide (Furosemide) 40 Mg Tablet, 40 MG PO DAILY, (Reported) Entered as Reported by: TILA DE LA GARZA on 05/30/22 1010 Hydroxyzine HCl (Hydroxyzine HCl) 25 Mg Tablet, 25 MG PO HS, (Reported) Entered as Reported by: TILA DE LA GARZA on 11/29/21 1021 Lactulose (Lactulose) 10 Gram/15 Ml Solution, 15 ML PO BID, (Reported) Entered as Reported by: TILA DE LA GARZA on 05/30/22 1010 Loratadine (Loratadine) 10 Mg Tablet, 10 MG PO DAILY, (Reported) Entered as Reported by: TILA DE LA GARZA on 11/29/21 1021 Megestrol Acetate (Megestrol Acetate) 40 Mg Tablet, 40 MG PO BID Prescribed by: OSITO JOHN on 11/29/21 1044 Melatonin (Melatonin) 10 Mg Tablet, 10 MG PO HS, (Reported) Entered as Reported by: TILA DE LA GARZA on 11/29/21 1021 Pantoprazole Sodium (Pantoprazole Sodium) 40 Mg Tablet.dr, 40 MG PO BID, (Reported) Entered as Reported by: TILA DE LA GARZA on 05/30/22 1010 Sennosides (Laxative) 25 Mg Tablet, 50 MG PO BID, (Reported) Entered as Reported by: TILA DE LA GARZA on 05/30/22 1010 Spironolactone (Spironolactone) 100 Mg Tablet, 100 MG PO DAILY, (Reported) Entered as Reported by: TILA DE LA GARZA on 11/29/21 1021 Vitamin B Complex (B Complex) 1 Each Tablet, 1 EACH PO DAILY Prescribed by: OSITO JOHN on 11/29/21 1044 Review of Systems Review of Systems Constitutional: see HPI EENTM: see HPI Respiratory: no symptoms reported Cardiovascular: no symptoms reported Genitourinary: no symptoms reported Musculoskeletal: no symptoms reported Skin: no symptoms reported Psychiatric/Neurological: See HPI, Headache Hematologic/Lymphatic: No Symptoms Reported Past Uqvebqm-Wskfwh-Ieakmd Hx Patient Social History Tobacco Use?: No Substance use?: No Alcohol Use?: Yes Alcohol type: Beer, Wine Alcohol Frequency: Daily Immunizations Up To Date Tetanus Booster (TDap): Unknown COVID19 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 Seasonal Allergies Seasonal Allergies: Yes Past Medical History Surgery/Hospitalization HX: appy, rt ovary Surgeries: Yes Appendectomy, Oophorectomy, Orthopedic Respiratory: No Pneumonia Cardiac: No Hypertension Neurological: Yes Headaches /Migraines Reproductive Disorders: No Genitourinary: No Gastrointestinal: Yes Gastroesophageal Reflux, Liver Disease/Jaundice Musculoskeletal: Yes Osteoporosis, Arthritis Endocrine: No HEENT: Yes Cataract Loss of Vision: Denies Hearing Impairment: Denies Cancer: No Psychosocial: No Integumentary: Yes Psoriasis Blood Disorders: Yes (low iron ) Adverse Reaction/Blood Tranf: No Family Medical History Patient reports no known family medical history. Other Conditions/Hx No pertinent family history Physical Exam Vital Signs Vital Signs - First Documented 07/06/22 20:28 Temp 36.9 Pulse 102 Resp 16 B/P (MAP) 113/57 (75) Pulse Ox 99 O2 Delivery Room Air Capillary Refill : Height, Weight, BMI Height: '" Weight: lbs. oz. kg; 19.75 BMI Method: General Appearance: No Apparent Distress, WD/WN Eyes: Bilateral Eye Normal Inspection, Bilateral Eye PERRL, Bilateral Eye EOMI HEENT: PERRL/EOMI, TMs Normal Neck: Full Range of Motion, Normal Inspection Respiratory: Normal Breath Sounds, No Accessory Muscle Use, No Respiratory Distress Cardiovascular: Regular Rate, Rhythm, Normal Peripheral Pulses Gastrointestinal: Normal Bowel Sounds, Non Tender, Soft Extremity: Normal Capillary Refill, Normal Inspection Neurologic/Psychiatric: Alert, Oriented x3 Skin: Normal Color, Warm/Dry Progress/Results/Core Measures Suspected Sepsis SIRS Temperature: Pulse: Respiratory Rate: Laboratory Tests 07/06/22 20:35: White Blood Count 7.3 Blood Pressure / Mean: Laboratory Tests 07/06/22 20:35: Creatinine 0.66, INR Comment 1.5H, Platelet Count 67L, Total Bilirubin 1.4H Results/Orders Lab Results Laboratory Tests Test 07/06/22 20:35 07/06/22 21:25 07/06/22 21:48 07/06/22 21:49 Range/Units White Blood Count 7.3 4.3-11.0 10^3/uL Red Blood Count 3.15 L 3.80-5.11 10^6/uL Hemoglobin 7.4 L 11.5-16.0 g/dL Hematocrit 24 L 35-52 % Mean Corpuscular Volume 75 L 80-99 fL Mean Corpuscular Hemoglobin 23 L 25-34 pg Mean Corpuscular Hemoglobin Concent 32 32-36 g/dL Red Cell Distribution Width 17.4 H 10.0-14.5 % Platelet Count 67 L 130-400 10^3/uL Mean Platelet Volume 11.9 9.0-12.2 fL Immature Granulocyte % (Auto) 0 % Neutrophils (%) (Auto) 75 42-75 % Lymphocytes (%) (Auto) 16 12-44 % Monocytes (%) (Auto) 8 0-12 % Eosinophils (%) (Auto) 0 0-10 % Basophils (%) (Auto) 0 0-10 % Neutrophils # (Auto) 5.5 1.8-7.8 10^3/uL Lymphocytes # (Auto) 1.2 1.0-4.0 10^3/uL Monocytes # (Auto) 0.6 0.0-1.0 10^3/uL Eosinophils # (Auto) 0.0 0.0-0.3 10^3/uL Basophils # (Auto) 0.0 0.0-0.1 10^3/uL Immature Granulocyte # (Auto) 0.0 0.0-0.1 10^3/uL Percent Immature Platelet Fraction 5.9 0.0-7.6 % Prothrombin Time 18.1 H 12.2-14.7 SEC INR Comment 1.5 H 0.8-1.4 Sodium Level 131 L 135-145 MMOL/L Potassium Level 3.5 L 3.6-5.0 MMOL/L Chloride Level 104 98-107 MMOL/L Carbon Dioxide Level 14 L 21-32 MMOL/L Anion Gap 13 5-14 MMOL/L Blood Urea Nitrogen 7 7-18 MG/DL Creatinine 0.66 0.60-1.30 MG/DL Estimat Glomerular Filtration Rate 103 BUN/Creatinine Ratio 11 Glucose Level 95 70-105 MG/DL Calcium Level 7.4 L 8.5-10.1 MG/DL Corrected Calcium 8.4 L 8.5-10.1 MG/DL Total Bilirubin 1.4 H 0.1-1.0 MG/DL Aspartate Amino Transf (AST/SGOT) 64 H 5-34 U/L Alanine Aminotransferase (ALT/SGPT) 39 0-55 U/L Alkaline Phosphatase 67 40-136 U/L Total Protein 6.4 6.4-8.2 GM/DL Albumin 2.8 L 3.2-4.5 GM/DL Serum Alcohol < 10 <10 MG/DL Ammonia 33 H 11-32 UMOL/L Arterial Blood pH 7.42 7.37-7.43 My Orders Orders - SANTOS DELGADO APRN Alcohol (07/06/22 20:32) Protime With Inr (07/06/22 20:32) Cbc With Automated Diff (07/06/22 20:32) Comprehensive Metabolic Panel (07/06/22 20:32) Ed Iv/Invasive Line Start (07/06/22 20:32) Ct Head/Cervical Spine Wo (07/06/22 20:32) Drug Screen Stat (Urine) (07/06/22 21:16) Ammonia (07/06/22 21:16) Abg Ph (07/06/22 21:44) Vital Signs/I&O 07/06/22 20:28 Temp 36.9 Pulse 102 Resp 16 B/P (MAP) 113/57 (75) Pulse Ox 99 O2 Delivery Room Air Capillary Refill : Departure Communication (Admissions) 2607 patient states that she feels better she is been up and walked to the bathroom without assistance. We will discharge to home. NAME: ALVA NGUYEN [facility] REC#: [id number] PT STATUS: REG ER : 1965 PHYSICIAN: SANTOS DELGADO APRN ADMIT DATE: 07/06/22/ER Draft Date of Exam:07/06/22 CT HEAD/CERVICAL SPINE WO PROCEDURE: CT head and CT cervical spine without contrast. TECHNIQUE: Multiple contiguous axial images were obtained through the brain and cervical spine without the use of intravenous contrast. Sagittal and coronal reformations through the cervical spine were then performed. Auto Exposure Controls were utilized during the CT exam to meet ALARA standards for radiation dose reduction. DATE: July 06, 2022. COMPARISON: CT head and cervical spine May 29, 2022. INDICATION: 57-year-old female, severe headache. Neck pain. FINDINGS: There is proportional prominence of the ventricles and additional CSF spaces consistent with moderate to severe cerebral volume loss. There is no mass effect or midline shift. There is no acute intracranial hemorrhage. There is no abnormal extra-axial fluid collection. The visualized portions of the paranasal sinuses, mastoid air cells and middle ears are well aerated. There is no identified facet joint subluxation or dislocation. There are mild facet degenerative changes of the cervical spine. There is no asymmetric widening of the cervical disc spaces. There is no prominent prevertebral soft tissue swelling. There is mild disc height loss at C5-C6. CT is limited for assessment of disc pathology as well as additional non-bony causes of pathology in the spinal canal. There is arthritis at the C1-C2 articulation. There is no identified acute fracture of the cervical spine. The visualized portions of the lungs are clear. IMPRESSION: 1. No identified acute intracranial abnormality. 2. No identified acute abnormality of the cervical spine. 3. Disc and facet degenerative changes of the cervical spine. Dictated on workstation # [id number] Dict: 07/06/[id number] Trans: [id number]/[id number] [facility] [id number] Interpreted by: IZAIAH WHITE MD Electronically signed by: Impression Primary Impression: Cirrhosis Additional Impression: Brain concussion Disposition: 01 HOME, SELF-CARE Condition: Stable Departure-Patient Inst. Decision time for Depature: 21:55 Referrals: HAYLEY GOLDBERG MD (PCP/Family) Primary Care Physician Patient Instructions: Concussion in Adults SANTOS DELGADO MARRIAGE THERAPIST Jul 06, 2022 20:46
[2022-07-06 20:48] LABS: BASOPHILS % (AUTO) 0 % (0-10); EOSINOPHILS % (AUTO) 0 % (0-10); HEMATOCRIT 24 % (35-52); HEMOGLOBIN 7.4 g/dL (11.5-16.0); LYMPHOCYTES # (AUTO) 1.2 10^3/uL (1.0-4.0); LYMPHOCYTES % (AUTO) 16 % (12-44); MEAN CORPUSCULAR HEMOGLOBIN 23 pg (25-34); MEAN CORPUSCULAR HGB CONC 32 g/dL (32-36); MEAN CORPUSCULAR VOLUME 75 fL (80-99); MEAN PLATELET VOLUME 11.9 fL (9.0-12.2); MONOCYTES # (AUTO) 0.6 10^3/uL (0.0-1.0); MONOCYTES % (AUTO) 8 % (0-12); NEUTROPHILS # (AUTO) 5.5 10^3/uL (1.8-7.8); NEUTROPHILS % (AUTO) 75 % (42-75); PLATELET COUNT 67 10^3/uL (130-400); WHITE BLOOD COUNT 7.3 10^3/uL (4.3-11.0)
[2022-07-06 20:59] LABS: ALBUMIN 2.8 GM/DL (3.2-4.5)
[2022-07-06 21:00] LABS: CHLORIDE 104 MMOL/L (98-107); POTASSIUM 3.5 MMOL/L (3.6-5.0); SODIUM 131 MMOL/L (135-145)
[2022-07-06 21:01] LABS: CALCIUM 7.4 MG/DL (8.5-10.1)
[2022-07-06 21:02] LABS: GLUCOSE 95 MG/DL (70-105); INR 1.5 (0.8-1.4); PROTHROMBIN TIME PATIENT 18.1 SEC (12.2-14.7); TOTAL PROTEIN 6.4 GM/DL (6.4-8.2)
[2022-07-06 21:03] LABS: CARBON DIOXIDE 14 MMOL/L (21-32)
[2022-07-06 21:04] LABS: BILIRUBIN,TOTAL 1.4 MG/DL (0.1-1.0)
[2022-07-06 21:05] LABS: ALKALINE PHOSPHATASE 67 U/L (40-136)
[2022-07-06 21:06] LABS: CREATININE SERUM 0.66 MG/DL (0.60-1.30); GFR ESTIMATED 103
[2022-07-06 21:07] LABS: BUN/CREATININE RATIO 11
[2022-07-06 21:08] LABS: ALANINE AMINOTRANSFERASE 39 U/L (0-55)
--- NOTE | 2022-07-06 21:44 | Diagnostic Imaging Report ---
PROCEDURE: CT head and CT cervical spine without contrast. TECHNIQUE: Multiple contiguous axial images were obtained through the brain and cervical spine without the use of intravenous contrast. Sagittal and coronal reformations through the cervical spine were then performed. Auto Exposure Controls were utilized during the CT exam to meet ALARA standards for radiation dose reduction. DATE: July 06, 2022. COMPARISON: CT head and cervical spine May 29, 2022. INDICATION: 57-year-old female, severe headache. Neck pain. FINDINGS: There is proportional prominence of the ventricles and additional CSF spaces consistent with moderate to severe cerebral volume loss. There is no mass effect or midline shift. There is no acute intracranial hemorrhage. There is no abnormal extra-axial fluid collection. The visualized portions of the paranasal sinuses, mastoid air cells and middle ears are well aerated. There is no identified facet joint subluxation or dislocation. There are mild facet degenerative changes of the cervical spine. There is no asymmetric widening of the cervical disc spaces. There is no prominent prevertebral soft tissue swelling. There is mild disc height loss at C5-C6. CT is limited for assessment of disc pathology as well as additional non-bony causes of pathology in the spinal canal. There is arthritis at the C1-C2 articulation. There is no identified acute fracture of the cervical spine. The visualized portions of the lungs are clear. IMPRESSION: 1. No identified acute intracranial abnormality. 2. No identified acute abnormality of the cervical spine. 3. Disc and facet degenerative changes of the cervical spine. Dictated by: Dictated on workstation # [id number]
[2022-07-06 22:05] VITALS: BP 112/63
[2022-07-06 22:11] LABS: AMPHETAMINE SCREEN, URINE NEGATIVE (NEGATIVE); BARBITURATE SCREEN URINE NEGATIVE (NEGATIVE); BENZODIAZEPINES SCREEN URINE NEGATIVE (NEGATIVE); CANNABINOID SCREEN, URINE NEGATIVE (NEGATIVE); COCAINE SCREEN URINE NEGATIVE (NEGATIVE); METHADONE STAT NEGATIVE (NEGATIVE); OPIATE SCREEN URINE NEGATIVE (NEGATIVE); OXYCODONE STAT NEGATIVE (NEGATIVE); PROPOXYPHENE STAT NEGATIVE (NEGATIVE); TRICYCLIC ANTIDEPRESSANTS SCRE NEGATIVE (NEGATIVE)
== END 2022-07-06 22:09 | disposition home or self-care (01) ==
LOC: EDUNIT# 20:25 → ER 20:26
DX: S06.0X9A Concussion with loss of consciousness of unspecified duration, initial encounter (principal); K74.60 Unspecified cirrhosis of liver; W22.8XXA Striking against or struck by other objects, initial encounter
CPT/HCPCS: 36415; 70450; 72125; 80053; 80306; 80320; 82140; 82800; 85025; 85610

== ENCOUNTER → 2022-08-13 | Outpatient (CLI) | payer OTHER ==
[~2022-08-13] MED LIST changes: +POTA-177 PO; -POTA10TA37 PO
--- NOTE | 2022-08-13 13:08 | Diagnostic Imaging Report ---
INDICATION: Cirrhosis of the liver. Follow-up. PROCEDURE: Ultrasound abdomen complete. TECHNIQUE: Multiple real-time grayscale images were obtained of the abdomen in various projections. COMPARISON: 01/29/2022. FINDINGS: The liver is normal in size and shape. The liver echogenicity has increased. There are no focal lesions. No intrahepatic biliary dilatation is present. The common bile duct is not dilated and measures 3 mm. The main portal vein is hepatopetal. There is recanalization of the umbilical vein. Varicose vessels are seen in the upper abdomen. No ascites is seen in the upper abdomen. Cholelithiasis is noted. There is no evidence of gallbladder wall thickening or pericholecystic fluid. Sonographic Nixon's sign is negative. The pancreas is not well visualized due to overlying bowel gas. The visualized portions of the IVC and aorta appear normal. The right kidney measures approximately 8.7 cm in length and has a normal appearance. The left kidney measures 10.5 cm and has a normal sonographic appearance. The spleen is enlarged measuring 14.0 x 6.6 x 6.9 cm. No focal splenic lesions. IMPRESSION: 1. Increased echogenicity throughout the liver, likely represents the patient's history of cirrhosis. No focal hepatic lesion is seen. 2. Stigmata of portal hypertension with splenomegaly, varicose vessels in the upper abdomen, and recanalization of the umbilical vein. No ascites. 3. Cholelithiasis without sonographic evidence of acute cholecystitis. Dictated by: Dictated on workstation # [id number]
== END ==
LOC: RAD 08:30
PROVIDERS: ATTEND Nurse Practitioner Adult Health
DX: K70.30 Alcoholic cirrhosis of liver without ascites (principal); K80.20 Calculus of gallbladder without cholecystitis without obstruction; K76.6 Portal hypertension; I86.8 Varicose veins of other specified sites; R16.1 Splenomegaly, not elsewhere classified
CPT/HCPCS: 76700

== ENCOUNTER 2022-09-29 19:45 | Emergency (ER) | payer OTHER ==
--- NOTE | 2022-09-29 19:56 | ED GI ---
General Chief Complaint: Abdominal/GI Problems Stated Complaint: COUGH / VOMITING Source of Information: Patient, EMS Exam Limitations: No Limitations History of Present Illness Date Seen by Provider: Sep 29, 2022 Time Seen by Provider: 19:45 Initial Comments 57-year-old female with cirrhosis presents to the emergency department today for vomiting. She thinks she did have some blood in it. She tells me that she started to feel unwell yesterday, generally rundown and having a nonproductive cough. She also felt feverish at that time. She states she started vomiting this evening. Emesis is tea colored though she is only been drinking water. She does not know of any history of esophageal varices. No sick contacts. No abdominal pain but she does have significant nausea still. EMS gave her 300 cc of fluid and 4 mg of Zofran in her IV prior to arrival. She tells me it has been 48 hours since her last alcohol consumption. Allergies and Home Medications Allergies Coded Allergies: Sulfa (Sulfonamide Antibiotics) (Verified Allergy, Unknown, 05/29/22) cortisone (Verified Allergy, Unknown, 05/29/22) Patient Home Medication List Home Medication List Reviewed: Yes Adalimumab (Humira Pen) 40 Mg/0.4 Ml [email or web address], 40 MG INJ EVERY 14 DAYS, (Reported) Entered as Reported by: TILA DE LA GARZA on 05/30/22 1010 Alendronate Sodium (Alendronate Sodium) 10 Mg Tablet, 10 MG PO HS, (Reported) Entered as Reported by: TILA DE LA GARZA on 05/30/22 1010 Calcium Carbonate (Calcium) 600 Mg Calcium (1500 Mg) Tablet, 600 MG PO DAILY, (Reported) Entered as Reported by: TILA DE LA GARZA on 05/30/22 1010 Cefdinir (Cefdinir) 300 Mg Capsule, 300 MG PO BID Prescribed by: CHINYERE FRANCIS on 05/31/22 1300 Chlorpheniramine Maleate (Chlortabs) 4 Mg Tablet, 4-8 MG PO BID PRN for ALLERGY SYMPTOMS, (Reported) Entered as Reported by: TILA DE LA GARZA on 05/30/22 1010 Cyanocobalamin (Vitamin B-12) (Vitamin B-12) 500 Mcg Tablet, 500 MCG PO DAILY, (Reported) Entered as Reported by: TILA DE LA GARZA on 05/30/22 1010 Furosemide (Furosemide) 40 Mg Tablet, 40 MG PO DAILY, (Reported) Entered as Reported by: TILA DE LA GARZA on 05/30/22 1010 Hydroxyzine HCl (Hydroxyzine HCl) 25 Mg Tablet, 25 MG PO HS, (Reported) Entered as Reported by: TILA DE LA GARZA on 11/29/21 1021 Lactulose (Lactulose) 10 Gram/15 Ml Solution, 15 ML PO BID, (Reported) Entered as Reported by: TILA DE LA GARZA on 05/30/22 1010 Loratadine (Loratadine) 10 Mg Tablet, 10 MG PO DAILY, (Reported) Entered as Reported by: TILA DE LA GARZA on 11/29/21 1021 Megestrol Acetate (Megestrol Acetate) 40 Mg Tablet, 40 MG PO BID Prescribed by: OSITO JOHN on 11/29/21 1044 Melatonin (Melatonin) 10 Mg Tablet, 10 MG PO HS, (Reported) Entered as Reported by: TILA DE LA GARZA on 11/29/21 1021 Pantoprazole Sodium (Pantoprazole Sodium) 40 Mg Tablet.dr, 40 MG PO BID, (Reported) Entered as Reported by: TILA DE LA GARZA on 05/30/22 1010 Sennosides (Laxative) 25 Mg Tablet, 50 MG PO BID, (Reported) Entered as Reported by: TILA DE LA GARZA on 05/30/22 1010 Spironolactone (Spironolactone) 100 Mg Tablet, 100 MG PO DAILY, (Reported) Entered as Reported by: TILA DE LA GARZA on 11/29/21 1021 Vitamin B Complex (B Complex) 1 Each Tablet, 1 EACH PO DAILY Prescribed by: OSITO JOHN on 11/29/21 1044 Review of Systems Review of Systems Constitutional: fever, weakness EENTM: No Symptoms Reported Respiratory: Cough Cardiovascular: No Symptoms Reported Gastrointestinal: Nausea, Vomiting Genitourinary: No Symptoms Reported Musculoskeletal: no symptoms reported Skin: no symptoms reported Psychiatric/Neurological: No Symptoms Reported Endocrine: No Symptoms Reported Hematologic/Lymphatic: No Symptoms Reported Past Bqljlyt-Efuysx-Vliaxt Hx Patient Social History Tobacco Use?: No Use of E-Cig and/or Vaping dev: No Substance use?: No Alcohol Use?: Yes Immunizations Up To Date Tetanus Booster (TDap): Unknown Seasonal Allergies Seasonal Allergies: Yes Past Medical History Surgery/Hospitalization HX: appy, rt ovary Surgeries: Yes Appendectomy, Oophorectomy, Orthopedic Respiratory: No Pneumonia Cardiac: No Hypertension Neurological: Yes Headaches /Migraines Reproductive Disorders: No Genitourinary: No Gastrointestinal: Yes Gastroesophageal Reflux, Liver Disease/Jaundice Musculoskeletal: Yes Osteoporosis, Arthritis Endocrine: No HEENT: Yes Cataract Loss of Vision: Denies Hearing Impairment: Denies Cancer: No Psychosocial: No Integumentary: Yes Psoriasis Blood Disorders: Yes (low iron ) Adverse Reaction/Blood Tranf: No Family Medical History Patient reports no known family medical history. Other Conditions/Hx No pertinent family history Physical Exam Vital Signs Vital Signs - First Documented 09/29/22 19:49 Temp 39.7 Pulse 116 Resp 16 B/P (MAP) 121/60 (80) Pulse Ox 94 O2 Delivery Room Air Capillary Refill : Height/Weight/BMI Height: '" Weight: lbs. oz. kg; 19.75 BMI Method: General Appearance: WD/WN, no apparent distress HEENT: PERRL/EOMI, normal ENT inspection, pharynx normal Neck: non-tender, supple, normal inspection Respiratory: chest non-tender, lungs clear, normal breath sounds, no res piratory distress, no accessory muscle use Cardiovascular: no edema, no gallop, no JVD, no murmur, tachycardia Gastrointestinal: normal bowel sounds, non tender, soft, no organomegaly, other (Umbilical hernia, reducible) Extremities: non-tender, normal inspection, no pedal edema, normal capillary refill Back: normal inspection, no vertebral tenderness Neurologic/Psychiatric: alert, normal mood/affect, oriented x 3 Skin: normal color, warm/dry Focused Exam Lactate Level 09/29/22 21:35: Lactic Acid Level 4.48*H Lactic Acid Level Laboratory Tests Test 09/29/22 21:35 Lactic Acid Level 4.48 MMOL/L (0.50-2.00) *H Progress/Results/Core Measures Results/Orders Lab Results Laboratory Tests Test 09/29/22 20:00 09/29/22 21:35 Range/Units White Blood Count 3.2 L 4.3-11.0 10^3/uL Red Blood Count 2.80 L 3.80-5.11 10^6/uL Hemoglobin 6.6 *L 11.5-16.0 g/dL Hematocrit 23 L 35-52 % Mean Corpuscular Volume 83 80-99 fL Mean Corpuscular Hemoglobin 24 L 25-34 pg Mean Corpuscular Hemoglobin Concent 28 L 32-36 g/dL Red Cell Distribution Width 23.0 H 10.0-14.5 % Platelet Count 11 *L 130-400 10^3/uL Mean Platelet Volume 9.0-12.2 fL Immature Granulocyte % (Auto) 1 % Neutrophils (%) (Auto) 71 42-75 % Lymphocytes (%) (Auto) 19 12-44 % Monocytes (%) (Auto) 8 0-12 % Eosinophils (%) (Auto) 0 0-10 % Basophils (%) (Auto) 1 0-10 % Neutrophils # (Auto) 2.3 1.8-7.8 10^3/uL Lymphocytes # (Auto) 0.6 L 1.0-4.0 10^3/uL Monocytes # (Auto) 0.3 0.0-1.0 10^3/uL Eosinophils # (Auto) 0.0 0.0-0.3 10^3/uL Basophils # (Auto) 0.0 0.0-0.1 10^3/uL Immature Granulocyte # (Auto) 0.0 0.0-0.1 10^3/uL Percent Immature Platelet Fraction 11.9 H 0.0-7.6 % Prothrombin Time 19.3 H 12.2-14.7 SEC INR Comment 1.6 H 0.8-1.4 Sodium Level 136 135-145 MMOL/L Potassium Level 3.5 L 3.6-5.0 MMOL/L Chloride Level 102 98-107 MMOL/L Carbon Dioxide Level 19 L 21-32 MMOL/L Anion Gap 15 H 5-14 MMOL/L Blood Urea Nitrogen 6 L 7-18 MG/DL Creatinine 0.59 L 0.60-1.30 MG/DL Estimat Glomerular Filtration Rate 106 BUN/Creatinine Ratio 10 Glucose Level 110 H 70-105 MG/DL Calcium Level 7.0 L 8.5-10.1 MG/DL Corrected Calcium 8.4 L 8.5-10.1 MG/DL Total Bilirubin 1.5 H 0.1-1.0 MG/DL Aspartate Amino Transf (AST/SGOT) 228 H 5-34 U/L Alanine Aminotransferase (ALT/SGPT) 45 0-55 U/L Alkaline Phosphatase 206 H 40-136 U/L Total Protein 5.9 L 6.4-8.2 GM/DL Albumin 2.3 L 3.2-4.5 GM/DL Lipase 190 H 8-78 U/L Serum Alcohol 176 H <10 MG/DL Influenza Type A (RT-PCR) Not Detected Not Detecte Influenza Type B (RT-PCR) Not Detected Not Detecte SARS-CoV-2 RNA (RT-PCR) Not Detected Not Detecte Smear Scan YES Lactic Acid Level 4.48 *H 0.50-2.00 MMOL/L Micro Results Microbiology 09/29/22 Blood Culture - Preliminary, Resulted No growth 09/29/22 Blood Culture - Preliminary, Resulted No growth My Orders Orders - BOBMARY DO Lipase (09/29/22 19:53) Cbc With Automated Diff (09/29/22 19:53) Comprehensive Metabolic Panel (09/29/22:53) Ondansetron Injection (Zofran Injectio (09/29/22 20:00) Covid 19 Inhouse Test (09/29/22 19:53) Influenza A And B By Pcr (09/29/22 19:53) Protime With Inr (09/29/22 19:56) Alcohol (09/29/22 19:58) Ibuprofen Tablet (Motrin Tablet) (09/29/22 20:00) Consent-Obtain Consent For (09/29/22 20:31) Monitor S/S Transfusion Reacti (09/29/22 20:31) Ns Iv 500 Ml (Sodium Chloride 0.9%) (09/29/22 20:45) Red Cells Leukocytes Reduced (09/29/22 20:31) Platelet Pheresis Lr (09/29/22 20:31) Type And Screen (09/29/22 20:31) Acetaminophen Tablet (Tylenol Tablet) (09/29/22 20:45) Pantoprazole Injection (Protonix Injecti (09/29/22 21:15) Ceftriaxone 1 Gm Pre-Mix (Rocephin 1 Gm (09/29/22 21:15) Lactic Acid Analyzer (09/29/22 21:16) Blood Culture (09/29/22 21:16) Ed Iv/Invasive Line Start (09/29/22 21:16) Ns Iv 1000 Ml (Sodium Chloride 0.9%) (09/29/22 21:41) Medications Given in ED Vital Signs/I&O 09/29/22 09/29/22 09/29/22 09/29/22 19:49 20:59 21:58 22:00 Temp 39.7 39.7 39.3 39.3 Pulse 116 116 Resp 16 18 B/P (MAP) 121/60 (80) 119/53 Pulse Ox 94 90 O2 Delivery Room Air Room Air 09/29/22 09/29/22 09/29/22 09/29/22 22:15 22:17 22:48 23:05 Temp 38.3 38.3 38.3 38.3 Pulse 110 114 114 Resp 16 16 16 B/P (MAP) 122/53 122/68 122/68 Pulse Ox 94 96 96 O2 Delivery Room Air Room Air Room Air 09/30/22 00:00 Intake Total 150 ml Balance 150 ml Critical Care Note Critical Care Total Time (minutes) 60 Departure Communication (Admissions) 2099: I have ordered the patient 1 unit of PRBCs which is being processed. Blood bank called as I ordered a pack of platelets as well. There are no platelets in the facility and will be available until delivery tomorrow. 2114: I spoke with Dr. Lorenzana, [facility]. He states he will touch base with GI as he is concerned that if the patient were to bleed in the middle of the night that they might not be able to come in. We will verify that if emergent bleeding happens that GI will come in to evaluate and if so we will accept the patient. Pending callback at this time Patient accepted to [facility]. EMS ground has accepted transfer and she is ultimately transferred in stable condition. Impression Primary Impression: Upper GI bleed Additional Impressions: Severe anemia Thrombocytopenia Cirrhosis of liver Qualified Codes: K70.30 - Alcoholic cirrhosis of liver without ascites Disposition: XFER SHT-TRM HOSP Condition: Stable Transfer Transfer Reason: Exceeds level of care Method of Transfer: EMS Departure-Patient Inst. Referrals: HAYLEY GOLDBERG MD (PCP/Family) Primary Care Physician MARY ROJAS DO Sep 29, 2022 19:56
[2022-09-29] MEDS ORDERED: IBUPROFEN 600 MG (MOTRIN) TAB PO ONE (20:00)
[2022-09-29] MEDS ORDERED: ONDANSETRON 4 MG/2 ML (SDV) Z0FRAN IVP ONE (20:00)
[2022-09-29 20:08] LABS: EOSINOPHILS % (AUTO) 0 % (0-10); MONOCYTES # (AUTO) 0.3 10^3/uL (0.0-1.0)
[2022-09-29 20:10] LABS: BASOPHILS % (AUTO) 1 % (0-10); HEMATOCRIT 23 % (35-52); LYMPHOCYTES # (AUTO) 0.6 10^3/uL (1.0-4.0); LYMPHOCYTES % (AUTO) 19 % (12-44); MEAN CORPUSCULAR HEMOGLOBIN 24 pg (25-34); MEAN CORPUSCULAR HGB CONC 28 g/dL (32-36); MEAN CORPUSCULAR VOLUME 83 fL (80-99); MONOCYTES % (AUTO) 8 % (0-12); NEUTROPHILS # (AUTO) 2.3 10^3/uL (1.8-7.8); NEUTROPHILS % (AUTO) 71 % (42-75); WHITE BLOOD COUNT 3.2 10^3/uL (4.3-11.0)
[2022-09-29 20:17] LABS: HEMOGLOBIN 6.6 g/dL (11.5-16.0)
[2022-09-29 20:18] LABS: PLATELET COUNT 11 10^3/uL (130-400)
[2022-09-29 20:28] LABS: INR 1.6 (0.8-1.4); PROTHROMBIN TIME PATIENT 19.3 SEC (12.2-14.7)
[2022-09-29 20:33] LABS: ALBUMIN 2.3 GM/DL (3.2-4.5); BILIRUBIN,TOTAL 1.5 MG/DL (0.1-1.0); CREATININE SERUM 0.59 MG/DL (0.60-1.30); POTASSIUM 3.5 MMOL/L (3.6-5.0); TOTAL PROTEIN 5.9 GM/DL (6.4-8.2)
[2022-09-29] MEDS ORDERED: ACETAMINOPHEN 500 MG TAB (TYLENOL) PO ONE (20:45)
[2022-09-29] MEDS ORDERED: NS IV 500 ML 500 ML IV SCH (20:45)
[2022-09-29] MEDS ORDERED: cefTRIAXone 1 GM PRE-MIX 50 ML IV SCH (21:15)
[2022-09-29] MEDS ORDERED: PANTOPRAZOLE 40 MG (PROTONIX) VIAL IV ONE (21:15)
[2022-09-29] MEDS ORDERED: NS IV 1000 ML 0 ML ONE (21:41)
[2022-09-29 21:58] VITALS: BP 119/53
[2022-09-29 22:03] LABS: SMEAR SCAN COMMENT YES
[2022-09-29 22:15] VITALS: BP 122/53
[2022-09-29 22:48] VITALS: BP 122/68
[2022-09-29 23:05] VITALS: BP 122/68
== END 2022-09-29 23:05 | disposition short-term general hospital (02) ==
LOC: EDUNIT# 19:45 → ER 19:45
DX: K92.2 Gastrointestinal hemorrhage, unspecified (principal); K70.30 Alcoholic cirrhosis of liver without ascites; D69.6 Thrombocytopenia, unspecified; D64.9 Anemia, unspecified; Z20.822 Contact with and (suspected) exposure to COVID-19; Y90.6 Blood alcohol level of 120-199 mg/100 ml
CPT/HCPCS: 36415; 80053; 80320; 83605; 83690; 85025; 85610; 86850; 86900; 86901; 86920; 87040; 87636

== ENCOUNTER → 2023-02-04 | Outpatient (CLI) | payer OTHER ==
[~2023-02-04] MED LIST changes: -LACT10SO27 PO; +LACT10SO84 PO
--- NOTE | 2023-02-04 11:24 | Diagnostic Imaging Report ---
INDICATION: Cirrhosis. Surveillance. PROCEDURE: Ultrasound abdomen complete. TECHNIQUE: Multiple real-time grayscale images were obtained of the abdomen in various projections. COMPARISON: None FINDINGS: Cirrhotic morphology of the liver is again identified. No focal hepatic mass is seen. Portal vein shows hepatopetal flow, but is dilated at 1.7 cm in diameter. There is also large dilated vessel within the anterior abdomen, which appears to extend to the falciform ligament and is felt to most likely represent large cannulated umbilical varix. There is no sonographic evidence of intra or extra hepatic biliary ductal dilatation. Common bile duct measures 4 mm in diameter. Gallbladder is visualized. Gallstones are noted. There is however no gallbladder wall thickening or pericholecystic free fluid. Pancreas is not well visualized due to overlying bowel gas. Spleen is enlarged. It measures 17.3 x 6.7 x 7.4 cm. No focal splenic lesions are identified. Visualized portions of abdominal aorta and IVC are unremarkable. There is no ascites. Both kidneys have a normal sonographic appearance. Right kidney measures 9.4 cm in length and left measures 10.4 cm. There is no evidence of hydronephrosis, calculus, nor mass. IMPRESSION: 1. Redemonstration cirrhotic morphology to the liver. 2. Sequela of portal venous hypertension including splenomegaly and recanalized patent umbilical varix. 3. Cholelithiasis, but no sonographic evidence of acute cholecystitis. Dictated by: Dictated on workstation # [id number]
== END ==
LOC: RAD 07:43
PROVIDERS: ATTEND Nurse Practitioner Adult Health
DX: K70.30 Alcoholic cirrhosis of liver without ascites (principal); K80.20 Calculus of gallbladder without cholecystitis without obstruction; K76.6 Portal hypertension; R16.1 Splenomegaly, not elsewhere classified
CPT/HCPCS: 76700

== ENCOUNTER 2023-03-11 15:59 | Inpatient (IN) | payer MEDICARE, MEDICAID ==
[2023-03-11] VITALS (7 sets, daily range): BP systolic 101–117; BP diastolic 64–75
[~2023-03-11] VITALS: Ht 167 cm; Wt 58.7 kg
[2023-03-11] MEDS ORDERED: NS IV ONE (16:30)
--- NOTE | 2023-03-11 16:38 | ED Cough/URI ---
General Chief Complaint: Cough/Cold/Flu Symptoms Stated Complaint: COUGH Nursing Triage Note: PT TO TRIAGE PT CO OF COUGH FOR APPROX 4 MONTHS. DENIES FEVERS. PT IS LETHARGIC Source: patient, other (Friend) Exam Limitations: intoxication History of Present Illness Date Seen by Provider: March 11, 2023 Time Seen by Provider: 16:22 Initial Comments 57-year-old female presents to the ED with complaint of a cough for the last 4 months. Patient denies any change in this cough, patient's friend states that she is here because she made her come. Patient reports midsternal chest pain that has been constant for 4 months since the cough started. Denies any radiation of this pain. Reports she has been coughing up phlegm. Also reports nasal congestion, runny nose, and a sinus headache. Denies fevers, abdominal pain, nausea, vomiting, diarrhea. Denies smoking, or history of smoking. She does have a history of alcohol abuse, states she last drank yesterday, but patient appears intoxicated and smells of alcohol. Patient denies any drug use. Denies any history of COPD or asthma. States she has liver issues, esophageal varices, osteoporosis, arthritis, and psoriasis. Was unable to list her medications. Patient is slightly confrontational. Allergies and Home Medications Allergies Coded Allergies: Sulfa (Sulfonamide Antibiotics) (Verified Allergy, Unknown, 05/29/22) cortisone (Verified Allergy, Unknown, 05/29/22) Patient Home Medication List Home Medication List Reviewed: Yes (Patient unable to confirm medications) Alendronate Sodium (Alendronate Sodium) 10 Mg Tablet, 10 MG PO HS, (Reported) Entered as Reported by: TILA DE LA GARZA on 05/30/22 1010 Last Action: Converted Amoxicillin/Potassium Clav (Amox Tr-K Clv 875-125 mg Tab) 875 Mg-125 Mg Tablet, 1 EACH PO BID Prescribed by: OSITO JOHN on 03/15/23 1049 Benzonatate (Tessalon Perles) 100 Mg Capsule, 200 MG PO TID Prescribed by: OSITO JOHN on 03/15/23 1049 Calcium Carbonate (Calcium Carbonate) 300 Mg Calcium (750 Mg) Tab.chew, 2-3 EA PO TID PRN for HEARTBURN, (Reported) Entered as Reported by: TILA DE LA GARZA on 03/12/23 1523 Last Action: Converted Ferrous Sulfate (Ferosul) 325 Mg (65 Mg Iron) Tablet, 325 MG PO HS, (Reported) Entered as Reported by: TILA DE LA GARZA on 03/12/23 1523 Last Action: Continued Folic Acid (Folic Acid) 1 Mg Tablet, 1 MG PO DAILY Prescribed by: OSITO JOHN on 03/15/23 1049 Furosemide (Furosemide) 40 Mg Tablet, 40 MG PO DAILY, (Reported) Entered as Reported by: TILA DE LA GARZA on 05/30/22 1010 Last Action: Continued Hydroxyzine HCl (Hydroxyzine HCl) 25 Mg Tablet, 25 MG PO HS, (Reported) Entered as Reported by: TILA DE LA GARZA on 11/29/21 1021 Last Action: Converted Ipratropium/Albuterol Sulfate (Iprat-Albut 0.5-3(2.5) mg/3 ml) 0.5 Mg-3 Mg (2.5 Mg Base)/3 Ml Ampul.neb, 3 ML INH RTQ6HR Prescribed by: OSITO JOHN on 03/15/23 1049 Lactulose (Lactulose) 10 Gram/15 Ml Solution, 15 ML PO DAILY, (Reported) Entered as Reported by: TILA DE LA GARZA on 05/30/22 1010 Last Action: Continued Loratadine (Loratadine) 10 Mg Tablet, 10 MG PO DAILY, (Reported) Entered as Reported by: TILA DE LA GARZA on 11/29/21 1021 Last Action: Continued Multivitamin/Iron/Folic Acid (Tab-A-Palomo Multivit with Iron) 18 Mg Iron-400 Mcg Tablet, 1 EA PO DAILY@0700 Prescribed by: OSITO JOHN on 03/15/23 1049 Ondansetron (Ondansetron Odt) 4 Mg Tab.rapdis, 4 MG SL Q4H PRN for YASMEEN SEA/VOMITING-1ST LINE Prescribed by: OSITO JOHN on 03/15/23 1049 Pantoprazole Sodium (Pantoprazole Sodium) 40 Mg Tablet.dr, 40 MG PO BID, (Reported) Entered as Reported by: TILA DE LA GARZA on 05/30/22 1010 Last Action: Continued Spironolactone (Spironolactone) 100 Mg Tablet, 100 MG PO DAILY, (Reported) Entered as Reported by: TILA DE LA GARZA on 11/29/21 1021 Last Action: Continued Discontinued Medications Adalimumab (Humira Pen) 40 Mg/0.4 Ml Pen.ij.kit, 40 MG INJ EVERY 14 DAYS, (Reported) Entered as Reported by: TILA DE LA GARZA on 05/30/22 1010 Last Action: Held Calcium Carbonate (Calcium) 600 Mg Calcium (1500 Mg) Tablet, 600 MG PO DAILY, (Reported) Discontinued Reason: Prescription changed Entered as Reported by: TILA DE LA GARZA on 05/30/22 1010 Cefdinir (Cefdinir) 300 Mg Capsule, 300 MG PO BID Discontinued Reason: No Longer Taking Prescribed by: CHINYERE FRANCIS on 05/31/22 1300 Last Action: Discontinued Chlorpheniramine Maleate (Chlortabs) 4 Mg Tablet, 4-8 MG PO BID PRN for ALLERGY SYMPTOMS, (Reported) Discontinued Reason: No Longer Taking Entered as Reported by: TILA DE LA GARZA on 05/30/22 1010 Last Action: Discontinued Cyanocobalamin (Vitamin B-12) (Vitamin B-12) 500 Mcg Tablet, 500 MCG PO DAILY, (Reported) Discontinued Reason: No Longer Taking Entered as Reported by: TILA DE LA GARZA on 05/30/22 1010 Last Action: Discontinued Megestrol Acetate (Megestrol Acetate) 40 Mg Tablet, 40 MG PO BID Discontinued Reason: No Longer Taking Prescribed by: OSITO JOHN on 11/29/21 1044 Last Action: Discontinued Melatonin (Melatonin) 10 Mg Tablet, 10 MG PO HS, (Reported) Discontinued Reason: Prescription changed Entered as Reported by: TILA DE LA GARZA on 11/29/21 1021 Melatonin (Melatonin) 5 Mg Tablet, 5 MG PO HS, (Reported) Discontinued Reason: No Longer Taking Entered as Reported by: TILA DE LA GARZA on 03/12/23 1523 Last Action: Discontinued Sennosides (Laxative) 25 Mg Tablet, 50 MG PO BID, (Reported) Discontinued Reason: No Longer Taking Entered as Reported by: TILA DE LA GARZA on 05/30/22 1010 Last Action: Discontinued Vitamin B Complex (B Complex) 1 Each Tablet, 1 EACH PO DAILY Discontinued Reason: No Longer Taking Prescribed by: OSITO JOHN on 11/29/21 1044 Last Action: Discontinued Review of Systems Review of Systems Constitutional: see HPI Past Xwnnnpd-Vuhtph-Fvkmby Hx Patient Social History Tobacco Use?: No Substance use?: No Alcohol Use?: No Pt feels they are or have been: No Immunizations Up To Date Tetanus Booster (TDap): Unknown Influenza Vaccine Up-to-Date: No; Not Current First/Initial COVID19 Vaccinat: YES Seasonal Allergies Seasonal Allergies: Yes Past Medical History Surgery/Hospitalization HX: appy, rt ovary, ALCOHOLISM Surgeries: Yes Appendectomy, Oophorectomy, Orthopedic Respiratory: No Pneumonia Cardiac: No Hypertension Neurological: Yes Headaches /Migraines Reproductive Disorders: No Genitourinary: No Gastrointestinal: Yes Gastroesophageal Reflux, Liver Disease/Jaundice Musculoskeletal: Yes Osteoporosis, Arthritis Endocrine: No HEENT: Yes Cataract Loss of Vision: Denies Hearing Impairment: Denies Cancer: No Psychosocial: No Integumentary: Yes Psoriasis Blood Disorders: Yes (low iron ) Adverse Reaction/Blood Tranf: No Family Medical History Patient reports no known family medical history. Other Conditions/Hx No pertinent family history Physical Exam Vital Signs - First Documented 03/11/23 03/11/23 03/11/23 16:07 16:15 19:51 Temp 36.9 Pulse 112 Resp 20 B/P (MAP) 108/69 Pulse Ox 89 O2 Delivery Room Air O2 Flow Rate 2.00 Capillary Refill : Less Than 3 Seconds Height: '" Weight: lbs. oz. kg; 17.00 BMI Method: General Appearance: WD/WN, no apparent distress Neck: supple, normal inspection Respiratory: no respiratory distress, no accessory muscle use, other (Coarse, difficult to hear due to coughing) Cardiovascular: tachycardia Extremities: normal range of motion, normal inspection Neurologic/Psychiatric: alert, normal mood/affect Skin: normal color, warm/dry, other (Skin is tanned, patient states she uses a tanning bed) Focused Exam Lactate Level Lactic Acid Level Laboratory Tests Test 03/11/23 17:10 03/11/23 19:48 Lactic Acid Level 2.12 MMOL/L (0.50-2.00) *H 3.09 MMOL/L (0.50-2.00) *H Progress/Results/Core Measures Suspected Sepsis SIRS Temperature: Pulse: 112 Respiratory Rate: 20 Blood Pressure / Mean: Laboratory Tests 03/11/23 16:49: INR Comment 1.3 Results/Orders Lab Results Laboratory Tests Test 03/11/23 00:05 03/11/23 16:49 03/11/23 17:10 03/11/23 17:48 Range/Units Sodium Level 142 140 135-145 MMOL/L Potassium Level 3.7 4.8 3.6-5.0 MMOL/L Chloride Level 111 H 107 98-107 MMOL/L Carbon Dioxide Level 20 L 21 21-32 MMOL/L Anion Gap 11 12 5-14 MMOL/L Blood Urea Nitrogen 6 L 6 L 7-18 MG/DL Creatinine 0.56 L 0.73 0.60-1.30 MG/DL Estimat Glomerular Filtration Rate 107 96 BUN/Creatinine Ratio 11 8 Glucose Level 91 99 70-105 MG/DL Calcium Level 7.1 L 8.6 8.5-10.1 MG/DL Corrected Calcium 8.5 9.4 8.5-10.1 MG/DL Total Bilirubin 0.8 0.9 0.1-1.0 MG/DL Aspartate Amino Transf (AST/SGOT) 73 H 115 H 5-34 U/L Alanine Aminotransferase (ALT/SGPT) 27 35 0-55 U/L Alkaline Phosphatase 100 120 40-136 U/L Total Protein 5.6 L 8.1 6.4-8.2 GM/DL Albumin 2.3 L 3.0 L 3.2-4.5 GM/DL White Blood Count 4.3 4.3-11.0 10^3/uL Red Blood Count 5.04 3.80-5.11 10^6/uL Hemoglobin 14.8 11.5-16.0 g/dL Hematocrit 45 35-52 % Mean Corpuscular Volume 89 80-99 fL Mean Corpuscular Hemoglobin 29 25-34 pg Mean Corpuscular Hemoglobin Concent 33 32-36 g/dL Red Cell Distribution Width 20.7 H 10.0-14.5 % Platelet Count 69 L 130-400 10^3/uL Mean Platelet Volume 9.0-12.2 fL Immature Granulocyte % (Auto) 0 % Neutrophils (%) (Auto) 54 42-75 % Lymphocytes (%) (Auto) 35 12-44 % Monocytes (%) (Auto) 10 0-12 % Eosinophils (%) (Auto) 1 0-10 % Basophils (%) (Auto) 1 0-10 % Neutrophils # (Auto) 2.3 1.8-7.8 10^3/uL Lymphocytes # (Auto) 1.5 1.0-4.0 10^3/uL Monocytes # (Auto) 0.4 0.0-1.0 10^3/uL Eosinophils # (Auto) 0.0 0.0-0.3 10^3/uL Basophils # (Auto) 0.1 0.0-0.1 10^3/uL Immature Granulocyte # (Auto) 0.0 0.0-0.1 10^3/uL Percent Immature Platelet Fraction 7.8 H 0.0-7.6 % Prothrombin Time 16.5 H 12.2-14.7 SEC INR Comment 1.3 0.8-1.4 Activated Partial Thromboplast Time 44 H 24-35 SEC D-Dimer 2.78 H 0.00-0.49 UG/ML Magnesium Level 1.9 1.6-2.4 MG/DL Troponin I < 0.028 <0.028 NG/ML Serum Alcohol 375 *H <10 MG/DL HIV (1&2) Ag and Ab Screen Referral Non-Reactive Non-Reactive Lactic Acid Level 2.12 *H 0.50-2.00 MMOL/L Influenza Type A (RT-PCR) Not Detected Not Detecte Influenza Type B (RT-PCR) Not Detected Not Detecte SARS-CoV-2 RNA (RT-PCR) Not Detected Not Detecte Test 03/11/23 19:02 03/11/23 19:48 Range/Units Urine Color YELLOW Urine Clarity CLEAR Urine pH 7.0 5-9 Urine Specific [place] <=1.005 1.016-1.022 Urine Protein NEGATIVE NEGATIVE Urine Glucose (UA) NEGATIVE NEGATIVE Urine Ketones NEGATIVE NEGATIVE Urine Nitrite NEGATIVE NEGATIVE Urine Bilirubin NEGATIVE NEGATIVE Urine Urobilinogen 0.2 < = 1.0 MG/DL Urine Leukocyte Esterase NEGATIVE NEGATIVE Urine RBC (Auto) NEGATIVE NEGATIVE Urine RBC NONE /HPF Urine WBC NONE /HPF Urine Crystals NONE /LPF Urine Bacteria NEGATIVE /HPF Urine Casts NONE /LPF Urine Mucus NEGATIVE /LPF Urine Culture Indicated NO Urine Opiates Screen NEGATIVE NEGATIVE Urine Oxycodone Screen NEGATIVE NEGATIVE Urine Methadone Screen NEGATIVE NEGATIVE Urine Propoxyphene Screen NEGATIVE NEGATIVE Urine Barbiturates Screen NEGATIVE NEGATIVE Ur Tricyclic Antidepressants Screen NEGATIVE NEGATIVE Urine Phencyclidine Screen NEGATIVE NEGATIVE Urine Amphetamines Screen NEGATIVE NEGATIVE Urine Methamphetamines Screen NEGATIVE NEGATIVE Urine Benzodiazepines Screen NEGATIVE NEGATIVE Urine Cocaine Screen NEGATIVE NEGATIVE Urine Cannabinoids Screen NEGATIVE NEGATIVE Lactic Acid Level 3.09 *H 0.50-2.00 MMOL/L Micro Results Microbiology 03/11/23 Blood Culture - Preliminary, Resulted No growth 03/11/23 Blood Culture - Preliminary, Resulted No growth My Orders Orders - RICARDO MCCABE SECURITY MESSENGER Cbc With Automated Diff (03/11/23 16:29) Comprehensive Metabolic Panel (03/11/23 16:29) Blood Culture (03/11/23 16:29) Protime With Inr (03/11/23 16:29) Partial Thromboplastin Time (03/11/23 16:29) Chest 1 View, Ap/Pa Only (03/11/23 16:29) Ed Iv/Invasive Line Start (03/11/23 16:29) Ekg Tracing (03/11/23 16:29) Troponin I Daisha (03/11/23 16:29) Vital Signs Adult Sepsis Patie Q15M (03/11/23 16:29) O2 (03/11/23 16:29) Lactic Acid Analyzer (03/11/23 16:29) Magnesium (03/11/23 16:29) Monitor-Rhythm Ecg Trace Only (03/11/23 16:29) Fibrin Degradation Products (03/11/23 16:29) Covid 19 Inhouse Test (03/11/23 16:29) Influenza A And B By Pcr (03/11/23 16:29) Alcohol (03/11/23 16:32) Drug Screen Stat (Urine) (03/11/23 16:32) Albuterol/Ipra Inhalation Soln (Duoneb I (03/11/23 16:45) Ns Iv 500 Ml (Sodium Chloride 0.9%) (03/11/23 17:15) Ns Iv 1000 Ml (Sodium Chloride 0.9%) (03/11/23 17:15) Ceftriaxone Iv/Im (Rocephin Iv/Im) (03/11/23 17:30) Azithromycin Injection (Zithromax Inject (03/11/23 17:30) Ct Angio Chest W (R/O Pe) (03/11/23 17:30) Iohexol Injection (Omnipaque 350 Mg/Ml 1 (03/11/23 17:45) Received Contrast (Hold Metformin- Contr (03/11/23 17:45) Ns (Ivpb) (Sodium Chloride 0.9% Ivpb Bag (03/11/23 17:45) Benzonatate Capsule (Tessalon Perles) (03/11/23 18:30) Ed Admission (Communication) (03/11/23 18:52) Medications Given in ED Vital Signs/I&O 03/11/23 03/11/23 03/11/23 03/11/23 16:07 16:15 17:15 19:51 Temp 36.9 Pulse 112 110 Resp 20 20 B/P (MAP) 108/69 Pulse Ox 89 96 95 94 O2 Delivery Room Air Nasal Cannula Nasal Cannula Nasal Cannula O2 Flow Rate 2.00 2.00 3.00 Capillary Refill : Less Than 3 Seconds Progress Note : Time: 16:39 Progress Note Patient seen and evaluated, resting in bed, no acute distress. Patient found to be hypoxic around 87-88% on room air. Based on exam and symptoms, septic work-up initiated including CBC, CMP, coags, lactic acid, magnesium, troponin, blood cultures x2, chest x-ray, sputum culture. IV fluids ordered and DuoNeb. 1731 Labs and x-ray reviewed. CBC shows elevated RDW 20.7 and decreased platelets 69. CMP shows elevated AST 115, and decreased albumin 3.0. Coags show increased PT 16.5, normal INR 1.3, and increased APTT 44. D-dimer elevated 2.78. CT angio chest ordered. Alcohol level 375, UDS negative. Covid and flu negative. Chest x-ray reviewed. New bilateral lower lobe nodular interstitial infiltrates noted. Antibiotics ordered for pneumonia. 1855 CT reviewed. No PE identified. Moderate pneumonia-type density of emir lower lobes and inferior lingula of left upper lobe. Cirrotic liver and splenomegaly. Dr. John, hospitalist, called for admission. She agrees to admit inpatient to ICU. All results and plan of care discussed with patient. ECG Initial ECG Impression Date: March 11, 2023 Initial ECG Impression Time: 16:52 Initial ECG Rate: 104 Initial ECG Rhythm: S.Tach Initial ECG Intervals: Normal Initial ECG Impression: Nonspecific Changes Initial ECG Comparisson: Changed Comment V2 inverted, no other changes. Diagnostic Imaging Diagonstic Imaging: Xray Plain Films/CT/US/NM/MRI: chest Comments [facility]. [place], [place] NAME: ALVA NGUYEN [facility] REC#: [id number] PT STATUS: REG ER : 1965 PHYSICIAN: RICARDO MCCABE APRN ADMIT DATE: 03/11/23/ER Signed Date of Exam:03/11/23 CHEST 1 VIEW, AP/PA ONLY INDICATION: Cough, shortness of air, chest pain. COMPARISON: Exam is compared with study 05/29/2022. FINDINGS: Bilateral lower lung interstitial infiltrates are new from prior. Heart size is normal, and there is no vascular congestion. No effusion or pneumothorax. IMPRESSION: New bilateral lower lobe nodular interstitial infiltrates with stable normal heart size and no acute pleural pathology. Dictated by: Dictated on workstation # [id number] Dict: 03/11/23 1645 Trans: 03/11/23 170 [id number] Interpreted by: JUDIE MNCALLY Electronically signed by: JUDIE MCNALLY 03/11/239 Diagonstic Imaging: CT Plain Films/CT/US/NM/MRI: chest Comments [facility]. [place], [place] NAME: LAVA NGUYEN [facility] REC#: [id number] PT STATUS: ADM IN : 1965 PHYSICIAN: RICARDO MCCABE APRN ADMIT DATE: 03/11/23/ICU Signed Date of Exam:03/11/23 CT ANGIO CHEST W (R/O PE) INDICATION: Cough. Lethargy. COMPARISON: 10/06/2020. TECHNIQUE: Routine postcontrast CTA of chest was performed. Contrast was injected intravenously and timed for optimal opacification of the arterial structures. Multiplanar and 3-D reformats were also created and reviewed. Auto Exposure Controls were utilized during the CT exam to meet ALARA standards for radiation dose reduction. FINDINGS: No abnormal intraluminal filling defect is seen within the pulmonary arteries to the lobar division. Evaluation beyond this is degraded by motion artifact. Evaluation of the thoracic aorta is also moderately degraded due to motion artifact, but thoracic aorta is grossly normal in course and caliber. By NASCET criteria, there is no evidence of focal significant stenosis, dissection, nor aneurysm. Heart size is within normal limits. There is no large pericardial effusion. No suspicious mediastinal, hilar, nor axillary adenopathy is identified. Evaluation of the lung gagnon demonstrates moderate mixed interstitial and alveolar densities, greatest involving the bilateral lower lobes. There is some involvement of the inferior lingula of the left upper lobe. This is favored to be on the basis of pneumonia. No large effusion or pneumothorax is seen. Pulmonary nodule or mass may be obscured. Osseous structures show no gross acute abnormalities. No lytic or blastic lesions are seen. Included portions of the upper abdomen show cirrhotic morphology to the liver. Multiple large collaterals are also noted within the upper abdomen. There is also splenomegaly. IMPRESSION: 1. No large intraluminal filling defect is seen to the lobar division. Evaluation beyond this is suboptimal due to motion artifact. 2. Moderate amount of pneumonia-type density, greatest involving the bilateral lower lobes, but with some involvement of the inferior lingula of the left upper lobe. Follow-up to resolution with chest radiographs is advised. 3. Cirrhotic morphology to the liver. Multiple large collaterals and splenomegaly within the upper abdomen suggest underlying portal hypertension. Dictated by: Dictated on workstation # [id number] Dict: 03/11/23 1803 Trans: 03/12/23 1208 [id number] Interpreted by: ROQUE PERRY MD Electronically signed by: ROQUE PERRY MD 03/12/23 1208 Departure Communication (Admissions) Time/Spoke to Admitting Phy: 18:55 Dr. John, hospitalist, see progress note. Impression Primary Impression: Liver cirrhosis Qualified Codes: K70.30 - Alcoholic cirrhosis of liver without ascites Additional Impressions: Alcohol intoxication Qualified Codes: F10.920 - Alcohol use, unspecified with intoxication, uncomplicated Pneumonia Qualified Codes: J18.9 - Pneumonia, unspecified organism Hypoxia Thrombocytopenia Disposition: ADMITTED INPATIENT Condition: Stable Admissions Decision to Admit Reason: Admit from ER (General) Decision to Admit/Date: March 11, 2023 Time/Decision to Admit Time: 18:55 Departure-Patient Inst. Referrals: HAYLEY GOLDBERG MD (PCP/Family) Primary Care Physician Scripts Amoxicillin/Potassium Clav (Amox Tr-K Clv 875-125 mg Tab) 875 Mg-125 Mg Tablet 1 EACH PO BID, #12 TAB Prov: OSITO JOHN DO 03/15/23 Multivitamin/Iron/Folic Acid (Tab-A-Palomo Multivit with Iron) 18 Mg Iron-400 Mcg Tablet 1 EA PO DAILY@0700, #30 TAB Prov: OSITO JOHN DO 03/15/23 Folic Acid (Folic Acid) 1 Mg Tablet 1 MG PO DAILY, #30 TAB Prov: OSITO JOHN DO 03/15/23 Ondansetron (Ondansetron Odt) 4 Mg Tab.rapdis 4 MG SL Q4H PRN for NAUSEA/VOMITING-1ST LINE, #12 TAB Prov: OSITO JOHN DO 03/15/23 Benzonatate (TESSALON PERLES) 100 Mg Capsule 200 MG PO TID, #30 CAP Prov: OSITO JOHN DO 03/15/23 Ipratropium/Albuterol Sulfate (Iprat-Albut 0.5-3(2.5) mg/3 ml) 0.5 Mg-3 Mg (2.5 Mg Base)/3 Ml Ampul.neb 3 ML INH RTQ6HR, #60 INHALER Prov: OSITO JOHN DO 03/15/23 RICARDO MCCABE APRN March 11, 2023 16:38
[2023-03-11] MEDS ORDERED: RT-ALBUTEROL/IPRATROPIUM 3 ML (DUONEB) VIAL INH ONE (16:45)
--- NOTE | 2023-03-11 16:56 | Diagnostic Imaging Report ---
INDICATION: Cough, shortness of air, chest pain. COMPARISON: Exam is compared with study 05/29/2022. FINDINGS: Bilateral lower lung interstitial infiltrates are new from prior. Heart size is normal, and there is no vascular congestion. No effusion or pneumothorax. IMPRESSION: New bilateral lower lobe nodular interstitial infiltrates with stable normal heart size and no acute pleural pathology. Dictated by: Dictated on workstation # [id number]
[2023-03-11 17:08] LABS: HEMOGLOBIN 14.8 g/dL (11.5-16.0); LYMPHOCYTES % (AUTO) 35 % (12-44); MEAN CORPUSCULAR VOLUME 89 fL (80-99)
[2023-03-11 17:09] LABS: BASOPHILS # (AUTO) 0.1 10^3/uL (0.0-0.1); BASOPHILS % (AUTO) 1 % (0-10); EOSINOPHILS % (AUTO) 1 % (0-10); HEMATOCRIT 45 % (35-52); LYMPHOCYTES # (AUTO) 1.5 10^3/uL (1.0-4.0); MEAN CORPUSCULAR HEMOGLOBIN 29 pg (25-34); MEAN CORPUSCULAR HGB CONC 33 g/dL (32-36); MONOCYTES # (AUTO) 0.4 10^3/uL (0.0-1.0); MONOCYTES % (AUTO) 10 % (0-12); NEUTROPHILS # (AUTO) 2.3 10^3/uL (1.8-7.8); NEUTROPHILS % (AUTO) 54 % (42-75); WHITE BLOOD COUNT 4.3 10^3/uL (4.3-11.0)
[2023-03-11 17:10] LABS: PLATELET COUNT 69 10^3/uL (130-400)
[2023-03-11] MEDS ORDERED: NS IV 500 ML 500 ML IV ONE (17:15)
[2023-03-11] MEDS ORDERED: NS IV 1000 ML 1,000 ML IV SCH (17:15)
[2023-03-11 17:20] LABS: CHLORIDE 107 MMOL/L (98-107); POTASSIUM 4.8 MMOL/L (3.6-5.0); SODIUM 140 MMOL/L (135-145)
[2023-03-11 17:21] LABS: CALCIUM 8.6 MG/DL (8.5-10.1)
[2023-03-11 17:22] LABS: FIBRIN DEGRADATION PRODUCTS 2.78 UG/ML (0.00-0.49); GLUCOSE 99 MG/DL (70-105); INR 1.3 (0.8-1.4); PROTHROMBIN TIME PATIENT 16.5 SEC (12.2-14.7); TOTAL PROTEIN 8.1 GM/DL (6.4-8.2)
[2023-03-11 17:23] LABS: CARBON DIOXIDE 21 MMOL/L (21-32)
[2023-03-11 17:24] LABS: BILIRUBIN,TOTAL 0.9 MG/DL (0.1-1.0)
[2023-03-11 17:26] LABS: ALKALINE PHOSPHATASE 120 U/L (40-136); CREATININE SERUM 0.73 MG/DL (0.60-1.30); GFR ESTIMATED 96
[2023-03-11 17:27] LABS: BUN/CREATININE RATIO 8
[2023-03-11 17:29] LABS: ALANINE AMINOTRANSFERASE 35 U/L (0-55)
[2023-03-11] MEDS ORDERED: AZITHROMYCIN INJECTION 500 MG in NS (IVPB) 250 ML IV ONE (17:30)
[2023-03-11] MEDS ORDERED: cefTRIAXone IV/IM 1,000 MG in NS (IVPB) 50 ML IV ONE (17:30)
[2023-03-11] MEDS ORDERED: HOLD METFORMIN - RECEIVED CONTRAST 20 ML VIAL IV SCH (17:45)
[2023-03-11] MEDS ORDERED: IOHEXOL 350 MG/ML 100 ML (OMNIPAQUE 350) VIAL IV ONE (17:45)
[2023-03-11] MEDS ORDERED: NS 100 ML (IVPB) BAG IV ONE (17:45)
--- NOTE | 2023-03-11 18:16 | Diagnostic Imaging Report ---
INDICATION: Cough. Lethargy. COMPARISON: 10/06/2020. TECHNIQUE: Routine postcontrast CTA of chest was performed. Contrast was injected intravenously and timed for optimal opacification of the arterial structures. Multiplanar and 3-D reformats were also created and reviewed. Auto Exposure Controls were utilized during the CT exam to meet ALARA standards for radiation dose reduction. FINDINGS: No abnormal intraluminal filling defect is seen within the pulmonary arteries to the lobar division. Evaluation beyond this is degraded by motion artifact. Evaluation of the thoracic aorta is also moderately degraded due to motion artifact, but thoracic aorta is grossly normal in course and caliber. By NASCET criteria, there is no evidence of focal significant stenosis, dissection, nor aneurysm. Heart size is within normal limits. There is no large pericardial effusion. No suspicious mediastinal, hilar, nor axillary adenopathy is identified. Evaluation of the lung gagnon demonstrates moderate mixed interstitial and alveolar densities, greatest involving the bilateral lower lobes. There is some involvement of the inferior lingula of the left upper lobe. This is favored to be on the basis of pneumonia. No large effusion or pneumothorax is seen. Pulmonary nodule or mass may be obscured. Osseous structures show no gross acute abnormalities. No lytic or blastic lesions are seen. Included portions of the upper abdomen show cirrhotic morphology to the liver. Multiple large collaterals are also noted within the upper abdomen. There is also splenomegaly. IMPRESSION: 1. No large intraluminal filling defect is seen to the lobar division. Evaluation beyond this is suboptimal due to motion artifact. 2. Moderate amount of pneumonia-type density, greatest involving the bilateral lower lobes, but with some involvement of the inferior lingula of the left upper lobe. Follow-up to resolution with chest radiographs is advised. 3. Cirrhotic morphology to the liver. Multiple large collaterals and splenomegaly within the upper abdomen suggest underlying portal hypertension. Dictated by: Dictated on workstation # [id number]
[2023-03-11] MEDS ORDERED: BENZONATATE 100 MG (TESSALON) CAPSULE PO ONE (18:30)
--- NOTE | 2023-03-11 19:00 | History & Physical ---
History of Present Illness HPI/Chief Complaint CC: PNA with alcohol intoxication HPI: This is a 57yoWF clinic patient of [facility] who presented to the ER with cough of 4 months duration and multiple rounds of medications. PNA found on imaging. She arrived quite intoxicated so rest of details unobtainable. ICU admit will ensue due to AMS. Source: patient Exam Limitations: clinical condition Date Seen 03/11/23 Time Seen by a Provider: 19:00 Attending Physician Naomi Read MD PCP Admitting Physician: Attending Physician: Referring Physician Date of Admission Home Medications & Allergies Home Medications Reviewed patient Home Medication Reconciliation performed by pharmacy medication reconciliations waste management recycling technician and/or nursing. Patients Allergies have been reviewed. Allergies Allergies Coded Allergies Sulfa (Sulfonamide Antibiotics) (Verified Allergy, Unknown, 05/29/22) cortisone (Verified Allergy, Unknown, 05/29/22) Past Wabgezs-Ulufdv-Vlkasd Hx Past Med/Social Hx: Reviewed Nursing Past Med/Soc Hx, Reviewed and Corrections made Patient Social History Marrital Status: single Alcohol Use: Regular Use Smoking Status: Current Everyday Smoker 2nd Hand Smoke Exposure: No Recent Hopitalizations: No Immunizations Up To Date Tetanus Booster (TDap): Unknown Date of Influenza Vaccine: Aug 25, 2021 Seasonal Allergies Seasonal Allergies: Yes Past Medical History Surgeries: Appendectomy, Oophorectomy, Orthopedic Cardiac: Hypertension Neurological: Headaches /Migraines Reproductive: No Gastrointestinal: Gastroesophageal Reflux, Liver Disease/Jaundice Musculoskeletal: Osteoporosis, Arthritis HEENT: Cataract Loss of Vision: Denies Hearing Impairment: Denies Skin/Integumentary: Psoriasis History of Blood Disorders: Yes (low iron ) Adverse Reaction to Blood Chen: No Family History Patient reports no known family medical history. Other Conditions/Hx No pertinent family history Review of Systems Constitutional: see HPI, dizziness, malaise, weakness Respiratory: cough, dyspnea on exertion Physical Exam Physical Exam Vital Signs Vital Signs - First Documented 03/11/23 03/11/23 03/11/23 16:07 16:15 19:51 Temp 36.9 Pulse 112 Resp 20 B/P (MAP) 108/69 Pulse Ox 89 O2 Delivery Room Air O2 Flow Rate 2.00 Capillary Refill : Less Than 3 Seconds Height, Weight, BMI Height: '" Weight: lbs. oz. kg; 17.00 BMI Method: General Appearance: WD/WN, Chronically ill, Moderate Distress Eyes: Bilateral Eye Normal Inspection, Bilateral Eye PERRL HEENT: PERRL/EOMI, Normal ENT Inspection, Pharynx Normal Neck: Full Range of Motion, Normal Inspection, Non Tender, Supple, Carotid Bruit Respiratory: Chest Non Tender, Lungs Clear, No Accessory Muscle Use, No Respi ratory Distress, Decreased Breath Sounds Cardiovascular: Regular Rate, Rhythm, No Edema, No Gallop, No JVD, No Murmur, Normal Peripheral Pulses Gastrointestinal: Normal Bowel Sounds, No Organomegaly, No Pulsatile Mass, Non Tender, Soft Back: Normal Inspection, No CVA Tenderness, No Vertebral Tenderness Extremity: Normal Capillary Refill, Normal Inspection, Normal Range of Motion, Non Tender, No Calf Tenderness, No Pedal Edema Neurologic/Psychiatric: Alert, Oriented x3, No Motor/Sensory Deficits, Normal Mood/Affect Skin: Normal Color, Warm/Dry Lymphatic: No Adenopathy Results Results/Procedures Labs Laboratory Tests 03/11/23 00:05 03/11/23 16:49 03/12/23 03:11 Patient resulted labs reviewed. Assessment/Plan Admission Diagnosis Assessment: PNA poss aspiration in alcoholic Alcohol intoxication Smoker Plan: ICU IV abx cover for poss aspiration Alcohol withdrawal protocol Admission Status: Inpatient Order (span 2 midnights) Reason for Inpatient Admission: pna OSITO JOHN DO March 11, 2023 19:00
[2023-03-11 19:21] LABS: AMPHETAMINE SCREEN, URINE NEGATIVE (NEGATIVE); BARBITURATE SCREEN URINE NEGATIVE (NEGATIVE); BENZODIAZEPINES SCREEN URINE NEGATIVE (NEGATIVE); CANNABINOID SCREEN, URINE NEGATIVE (NEGATIVE); COCAINE SCREEN URINE NEGATIVE (NEGATIVE); METHADONE STAT NEGATIVE (NEGATIVE); OPIATE SCREEN URINE NEGATIVE (NEGATIVE); OXYCODONE STAT NEGATIVE (NEGATIVE); PROPOXYPHENE STAT NEGATIVE (NEGATIVE); TRICYCLIC ANTIDEPRESSANTS SCRE NEGATIVE (NEGATIVE)
--- NOTE | 2023-03-11 20:34 | Tele-ICU Progress Note ---
Progress Note 57F with EtOH dependence, cirrhosis, chronic anemia, pancreatitis, thrombocytopenia, UGIB admitted with pneumonia. In the ED she reported 4 months of stable, productive cough. Also reporting constant midsternal chest pain since the cough started. Also endorsed nasal congestion runny nose and sinus headache. She denied any recent changes in symtpoms and stated that a friend insisted she come for evaluation. Of note, she appeared clinically intoxicated and had serum etoh 375 at that time. In the ED, she was mildly hypoxic with SpO2 89% on RA. CTA without large PE, with bilateral LL pneumonia. Given Rocephin, azithro and duoneb. - pneumonia: continue rocephin and azithro, wean O2 as tolerated. Initial lactic elevated at 4.1, then improved to 2.12 then back up to 3.09. Likely has a component of slow clearance in the setting of cirrhosis. Will start NS at 100 cc/hr. If trending up on next repeat, will give additional 500 cc bolus. - EtOH: CIWA, thiamine, folate, MVI. - Thrombocytopenia: chronic secondary to cirrhosis. Baseline counts are labile, in the 11-111 range. Today 69, higher than average. No intervention. - anemia: Hg 14.8, has been 5.8-9.7 on labs from 03/30/20 through 09/29/22. Did present with clinical bleeding on all of those occasions. Baseline is very unclear. Will repeat on routine AM labs. Patient assessed via real-time audiovisual communication system. CCT 11 min Focused Exam Lactate Level 03/11/23 17:10: Lactic Acid Level 2.12*H 03/11/23 19:48: Height, Weight, BMI Height: '" Weight: lbs. oz. kg; 17.00 BMI Method: Lactic Acid Level Laboratory Tests Test 03/11/23 17:10 03/11/23 19:48 Lactic Acid Level 2.12 MMOL/L (0.50-2.00) *H JACQUELINE CRESPO MD March 11, 2023 20:34
[2023-03-11] MEDS ORDERED: polyethylene glycoL POWDER 17 GM (MIRALAX) PACK PO PRN (20:45)
[2023-03-11] MEDS ORDERED: SENNA W/DOCUSATE (SENOKOT S) TABLET PO PRN (20:45)
[2023-03-11] MEDS ORDERED: LORazepam INJ 2 MG/ML (ATIVAN) VIAL IM/IV PRN (20:45)
[2023-03-11] MEDS ORDERED: diphenhydrAMINE 25 MG TAB (BENADRYL) PO PRN (20:45)
[2023-03-11] MEDS ORDERED: NS IV 500 ML 500 ML IV PRN (20:45)
[2023-03-11] MEDS ORDERED: ACETAMINOPHEN 325 MG TABLET PO PRN (20:45)
[2023-03-11] MEDS ORDERED: 1/2 NS IV SOLUTION 1,000 ML IV PRN (20:45)
[2023-03-11] MEDS ORDERED: HYDROmorphone 2 MG/ML VIAL (DILAUDID) IV PRN (20:45)
[2023-03-11] MEDS ORDERED: MILK OF MAGNESIA 400 MG/5 ML 30 ML UDC PO PRN (20:45)
[2023-03-11] MEDS ORDERED: LORazepam INJ 2 MG/ML (ATIVAN) VIAL IV PRN (20:45)
[2023-03-11] MEDS ORDERED: ONDANSETRON 4 MG (ZOFRAN) ORAL DISSOLVE TAB PO PRN (20:45)
[2023-03-11] MEDS ORDERED: ONDANSETRON 4 MG/2 ML (SDV) Z0FRAN IV PRN (20:45)
[2023-03-11] MEDS ORDERED: DexMEDEtomidine 250 ML DRIP 250 ML IV SCH (20:45)
[2023-03-11] MEDS ORDERED: ONDANSETRON 4 MG (ZOFRAN) ORAL DISSOLVE TAB SL PRN (20:45)
[2023-03-11] MEDS ORDERED: D5 1/2 NS 1000 ML IV SOLUTION 1,000 ML IV PRN (20:45)
[2023-03-11] MEDS ORDERED: MELATONIN 3 MG TABLET PO PRN (20:45)
[2023-03-11] MEDS ORDERED: ANTACID SUSP 30 ML UDC (MYLANTA) PO PRN ×2 (20:45)
[2023-03-11] MEDS ORDERED: diphenhydrAMINE 50 MG/ML INJ (BENADRYL) IVP PRN (20:45)
[2023-03-11] MEDS ORDERED: BISACODYL 10 MG SUPP (DULCOLAX) PR PRN (20:45)
[2023-03-11] MEDS ORDERED: LACTULOSE SYRUP 10GM/15ML (ENULOSE) 30ML UDC PO PRN (20:45)
[2023-03-11] MEDS ORDERED: NS IV 1000 ML 1,000 ML ONE (21:54)
[2023-03-11 21:55] LABS: BILIRUBIN,URINE NEGATIVE (NEGATIVE); CLARITY,URINE CLEAR; COLOR,URINE YELLOW; GLUCOSE, URINE (UA) NEGATIVE (NEGATIVE); KETONES,URINE NEGATIVE (NEGATIVE); LEUKOCYTE ESTERASE ,URINE NEGATIVE (NEGATIVE); NITRITE,URINE NEGATIVE (NEGATIVE); PROTEIN,URINE NEGATIVE (NEGATIVE)
[2023-03-11] MEDS ORDERED: PIPERACILLIN SODIUM/TAZOBACTAM 4.5 GM in NS (IVPB) 100 ML IV ONE (22:00)
[2023-03-11] MEDS: NS IV 1000 ML 1,000 ML IV SCH (22:07)
[2023-03-11 22:28] LABS: BACTERIA,URINE NEGATIVE /HPF
[2023-03-11] MEDS: DOCUSATE SODIUM 100 MG (COLACE) CAP PO SCH (23:05)
[2023-03-11] MEDS: BENZONATATE 100 MG (TESSALON) CAPSULE PO SCH (23:05)
[2023-03-11] MEDS: SENNOSIDES 8.6 MG (SENOKOT) TAB PO SCH (23:05)
[2023-03-11] MEDS: ENOXAPARIN INJECTION 30 MG/0.3 ML SYR SC SCH (23:05)
[2023-03-11] MEDS: MAGNESIUM OXIDE (MAG-OX)400 MG TAB PO SCH (23:05)
[2023-03-12] VITALS (8 sets, daily range): BP systolic 120–129; BP diastolic 65–73
[2023-03-12 00:39] LABS: ALBUMIN 2.3 GM/DL (3.2-4.5); BILIRUBIN,TOTAL 0.8 MG/DL (0.1-1.0); CALCIUM 7.1 MG/DL (8.5-10.1); CREATININE SERUM 0.56 MG/DL (0.60-1.30); POTASSIUM 3.7 MMOL/L (3.6-5.0); TOTAL PROTEIN 5.6 GM/DL (6.4-8.2)
[2023-03-12] MEDS ORDERED: NS IV 500 ML 500 ML IV PRN (00:45)
[2023-03-12 03:36] LABS: BASOPHILS % (AUTO) 1 % (0-10); HEMOGLOBIN 11.9 g/dL (11.5-16.0)
[2023-03-12 03:38] LABS: EOSINOPHILS % (AUTO) 1 % (0-10); HEMATOCRIT 37 % (35-52); LYMPHOCYTES % (AUTO) 31 % (12-44); MEAN CORPUSCULAR HEMOGLOBIN 29 pg (25-34); MEAN CORPUSCULAR HGB CONC 32 g/dL (32-36); MEAN CORPUSCULAR VOLUME 90 fL (80-99); MONOCYTES # (AUTO) 0.4 10^3/uL (0.0-1.0); MONOCYTES % (AUTO) 12 % (0-12); NEUTROPHILS # (AUTO) 1.8 10^3/uL (1.8-7.8); NEUTROPHILS % (AUTO) 55 % (42-75); PLATELET COUNT 51 10^3/uL (130-400); WHITE BLOOD COUNT 3.3 10^3/uL (4.3-11.0)
[2023-03-12 03:47] LABS: ALBUMIN 2.2 GM/DL (3.2-4.5); BILIRUBIN,TOTAL 0.8 MG/DL (0.1-1.0); CALCIUM 7.1 MG/DL (8.5-10.1); CREATININE SERUM 0.55 MG/DL (0.60-1.30); MAGNESIUM 1.4 MG/DL (1.6-2.4); PHOSPHORUS 3.1 MG/DL (2.3-4.7); POTASSIUM 3.8 MMOL/L (3.6-5.0); TOTAL PROTEIN 5.6 GM/DL (6.4-8.2)
[2023-03-12] MEDS: POTASSIUM CL 10MEQ/50ML IVPB 50 ML IV SCH ×2 (03:54→03:56)
[2023-03-12] MEDS: MAGNESIUM 1 GM/100 ML IVPB 100 ML IV SCH ×8 (03:54→10:15)
[2023-03-12] MEDS: KCL 20 MEQ TAB (K-DUR) PO SCH ×3 (03:54→07:00)
[2023-03-12] MEDS: PIPERACILLIN SODIUM/TAZOBACTAM 4.5 GM in NS (IVPB) 100 ML IV SCH ×3 (04:18→20:18)
[2023-03-12] MEDS: NS IV 1000 ML 1,000 ML IV SCH ×2 (07:00→18:24)
[2023-03-12] MEDS: MULTIVIT W/MINERALS TAB (THERAGRAN M) PO SCH (07:00)
[2023-03-12] MEDS: THIAMINE 100 MG (VITAMIN B-1) TAB PO SCH (07:00)
[2023-03-12] MEDS: BENZONATATE 100 MG (TESSALON) CAPSULE PO SCH ×3 (09:00→20:18)
[2023-03-12] MEDS: THIAMINE INJECTION 100 MG, FOLIC ACID INJECTION 1 MG, MAGNESIUM SULFATE 2 GM, VITAMIN M... IV SCH ×5 (09:00)
[2023-03-12] MEDS: MAGNESIUM OXIDE (MAG-OX)400 MG TAB PO SCH ×2 (09:00→20:18)
[2023-03-12] MEDS: SENNOSIDES 8.6 MG (SENOKOT) TAB PO SCH ×2 (09:00→20:02)
[2023-03-12] MEDS: DOCUSATE SODIUM 100 MG (COLACE) CAP PO SCH ×2 (09:00→20:02)
--- NOTE | 2023-03-12 13:39 | Progress Note - Hospitalist ---
ALEX MYLES 03/12/23 1339: Subjective HPI/CC On Admission Time Seen by Provider: 09:45 CC: PNA with alcohol intoxication HPI: This is a 57yoWF clinic patient of [facility] who presented to the ER with cough of 4 months duration and multiple rounds of medications. PNA found on imaging. She arrived quite intoxicated so rest of details unobtainable. ICU admit will ensue due to AMS. Subjective/Events-last exam Pt mentation improved today, A&O x 3. She denies pain except for some with cough. She has had good UOP and regular BM. She endorses nausea and had an episode of vomiting this am, noted there was not blood in vomit. She has not eaten but has been drinking water. She is breathing comfortably on 3L nc. Focused Exam Lactate Level 03/11/23 19:48: Lactic Acid Level 3.09*H 03/12/23 00:09: Lactic Acid Level 2.46*H 03/12/23 03:11: Lactic Acid Level 2.31*H Objective Exam Vital Signs Vital Signs Date Time Temp Pulse Resp B/P (MAP) Pulse Ox O2 Delivery O2 Flow Rate FiO2 03/12/23 04:43 37.4 03/12/23 04:34 93 Nasal Cannula 3.00 03/12/23 03:00 103 21 123/71 (88) 03/11/23 21:56 Capillary Refill : Less Than 3 Seconds General Appearance: WD/WN, Chronically ill, Moderate Distress HEENT: PERRL/EOMI, TMs Normal, Normal ENT Inspection, Pharynx Normal Neck: Full Range of Motion, Normal Inspection, Non Tender, Supple Respiratory: Chest Non Tender, Lungs Clear, Normal Breath Sounds, No Accessory Muscle Use, No Respiratory Distress Cardiovascular: Regular Rate, Rhythm, No Edema, No Gallop, No JVD, No Murmur, Normal Peripheral Pulses Gastrointestinal: Normal Bowel Sounds, No Organomegaly, No Pulsatile Mass, Non Tender, Soft Extremity: Normal Capillary Refill, Normal Inspection, Normal Range of Motion, Non Tender, No Calf Tenderness, No Pedal Edema Neurologic/Psychiatric: Alert, Oriented x3, No Motor/Sensory Deficits Skin: Normal Color, Warm/Dry Lymphatic: No Adenopathy Results/Procedures Lab Laboratory Tests 03/11/23 16:49 03/12/23 03:11 Patient resulted labs reviewed. Assessment/Plan Assessment and Plan Assess & Plan/Chief Complaint CC: AMS/Cough PNA Possible Aspiration - Cont zosyn and azithromycin - wean O2 as tolerated - ctm Alcohol intoxication Alcohol W/D - [facility] protocol - Thiamine/folic acid/mag sulfate/multivitamin/dextrose/NaCl supplementation ELEN JOHN DO 03/13/23 0445: Subjective HPI/CC On Admission Date Seen by Provider: March 12, 2023 Supervisory-Addendum Brief Verification & Attestation Participated in pt care: history, MDM, physical Personally performed: exam, history, MDM, supervision of care Care discussed with: Medical Student Procedures: n/a Results interpretation: Verified all documentation Verification and Attestation of Medical Student E/M Service A medical student performed and documented this service in my presence. I reviewed and verified all information documented by the medical student and made modifications to such information, when appropriate. I personally performed the physical exam and medical decision making. Elen John March 13, 2023,04:44 ALEX MYLES March 12, 2023 13:39 ELEN JOHN DO March 13, 2023 04:45
--- NOTE | 2023-03-12 15:15 | Diagnostic Imaging Report ---
INDICATION: Respiratory distress. FINDINGS: There are bilateral lower lobe infiltrates having increased from the study of 03/11/2023. No pneumothorax. The heart size and vasculature are stable. IMPRESSION: Worsened lower lobe infiltrates bilaterally. Dictated by: Dictated on workstation # [id number]
[2023-03-12] MEDS ORDERED: CALC-938 PO (15:23)
[2023-03-12] MEDS ORDERED: FERR325T24 PO (15:23)
[2023-03-12] MEDS ORDERED: MELA5TAB14 PO (15:23)
--- NOTE | 2023-03-12 16:48 | Tele-ICU Progress Note ---
Subjective Date Seen by a Provider: March 12, 2023 Time Seen by a Provider: 16:47 Subjective/Events-last exam (Tele-ICU Physician , Progress Note ) Service provided via interactive audio and video telecommunications [employer] s te to a patient admitted to ICU bed in [facility]. Patient is seen today due to persistent need of ICU care Available chart/ vitals / labs / Images reviewed Video assessment done using teleICU camera, rest of exam as per RN She is a 57-year-old female with past medical history of cirrhosis of the liver and alcohol abuse admitted with alcohol intoxication and altered mental status. Now her mental status is improving. She is also found to have a pneumonia. Currently she is on 3 L of nasal cannula. No significant leg swelling or belly distention. She is receiving IV Zosyn. Hemodynamically stable. Impression 1. Pneumonia possibly due to aspiration while intoxicated 2. Alcohol withdrawal syndrome improving 3. History of cirrhosis of liver 4. Tobacco abuse disorder. Recommendations 1. Continue CIWA protocol 2. IV antibiotics per primary care physician 3. Will give thiamine and folic acid as well as multivitamins 4. DVT prophylaxis. 5. Monitor electrolytes. Coordination of care with primary care physician and bedside consultants. I am remotely monitoring this patient from Tele icu station in [place]. I am unable to do the bedside exam, and history/physical and pertinent information is taken from other notes in the computer and bedside staff. Certain portions of this document may have been dictated utilizing voice recognition technology such as [employer]. Inherent to this technology, typographical and grammatical errors may exist. As much as I am diligent to identify and correct to these mistakes, some errors may remain in the document. Critical care time devoted to this patient today is approximately is--20 minutes Sepsis Event Evaluation Height, Weight, BMI Height: '" Weight: lbs. oz. kg; 18.46 BMI Method: Focused Exam Lactate Level 03/11/23 19:48: Lactic Acid Level 3.09*H 03/12/23 00:09: Lactic Acid Level 2.46*H 03/12/23 03:11: Lactic Acid Level 2.31*H Exam Exam Patient acknowledged, consented, and participated in this virtual visit which was conducted using real time audio/video Vital Signs Date Time Temp Pulse Resp B/P (MAP) Pulse Ox O2 Delivery O2 Flow Rate FiO2 03/12/23 04:43 37.4 03/12/23 04:34 93 Nasal Cannula 3.00 03/12/23 03:00 103 21 123/71 (88) 92 Nasal Cannula 3.00 03/12/23 02:34 Nasal Cannula 3.00 03/12/23 02:00 106 123/65 (82) 93 Nasal Cannula 3.00 03/12/23 01:00 105 36 120/68 (84) 92 Nasal Cannula 3.00 03/12/23 01:00 105 03/12/23 00:27 36.9 03/12/23 00:00 106 21 121/70 (86) 93 Nasal Cannula 3.00 03/11/23 23:59 92 Nasal Cannula 3.00 03/11/23 23:00 99 117/67 (87) 92 Nasal Cannula 3.00 03/11/23 22:00 100 21 113/64 (80) Nasal Cannula 3.00 03/11/23 21:56 Nasal Cannula 3.00 03/11/23 21:45 101 16 117/73 (86) 90 Nasal Cannula 3.00 03/11/23 21:30 107 15 110/64 (77) 91 Nasal Cannula 3.00 03/11/23 21:26 Nasal Cannula 3.00 03/11/23 21:15 105 20 109/65 (76) 92 Nasal Cannula 3.00 03/11/23 21:01 110 27 101/68 (85) 90 Nasal Cannula 3.00 03/11/23 20:09 106 03/11/23 20:09 106 15 115/75 (88) 86 Nasal Cannula 3.00 03/11/23 20:00 37.4 Nasal Cannula 3.00 03/11/23 20:00 94 Nasal Cannula 3.00 03/11/23 19:51 110 20 108/69 94 Nasal Cannula 3.00 03/11/23 17:15 95 Nasal Cannula 2.00 I & O 03/12/23 07:00 Intake Total 3020 ml Output Total 400 ml Balance 2620 ml Height & Weight Height: '" Weight: lbs. oz. kg; 18.46 BMI Method: General Appearance: WD/WN, Chronically ill, Moderate Distress HEENT: PERRL/EOMI, TMs Normal, Normal ENT Inspection, Pharynx Normal Neck: Full Range of Motion, Normal Inspection, Non Tender, Supple Respiratory: Chest Non Tender, Lungs Clear, Normal Breath Sounds, No Accessory Muscle Use, No Respiratory Distress Cardiovascular: Regular Rate, Rhythm, No Edema, No Gallop, No JVD, No Murmur, Normal Peripheral Pulses Capillary Refill: Less Than 3 Seconds Extremity: Normal Capillary Refill, Normal Inspection, Normal Range of Motion, Non Tender, No Calf Tenderness, No Pedal Edema Neurologic/Psychiatric: Alert, Oriented x3, No Motor/Sensory Deficits Skin: Normal Color, Warm/Dry Lymphatic: No Adenopathy Results Lab Laboratory Tests 03/11/23 00:05 03/11/23 16:49 03/12/23 03:11 Assessment/Plan Assessment/Plan as above Critical Care: Critically Ill Patient Time spent with patient (mins): 20 BRANDON CAMPOS MD March 12, 2023 16:48
[2023-03-12] MEDS ORDERED: AZITHROMYCIN INJECTION 500 MG in NS (IVPB) 250 ML IV SCH (18:00)
[2023-03-12] MEDS: FOLIC ACID 1 MG TAB PO SCH (18:12)
[2023-03-12] MEDS: ENOXAPARIN INJECTION 30 MG/0.3 ML SYR SC SCH (20:19)
[2023-03-12] MEDS: guaiFENesin/CODEINE (ROBITUSSIN AC) 10ML UDC PO PRN (23:13)
[2023-03-12] MEDS: LORazepam 1 MG (ATIVAN) TAB PO PRN (23:14)
[2023-03-13] MEDS: PIPERACILLIN SODIUM/TAZOBACTAM 4.5 GM in NS (IVPB) 100 ML IV SCH ×3 (03:59→19:43)
[2023-03-13] MEDS: guaiFENesin/CODEINE (ROBITUSSIN AC) 10ML UDC PO PRN ×3 (03:59→16:44)
[2023-03-13] MEDS: NS IV 1000 ML 1,000 ML IV SCH ×2 (05:07→09:34)
[2023-03-13 05:20] LABS: BASOPHILS % (AUTO) 1 % (0-10); EOSINOPHILS # (AUTO) 0.1 10^3/uL (0.0-0.3); EOSINOPHILS % (AUTO) 2 % (0-10); HEMOGLOBIN 12.2 g/dL (11.5-16.0)
[2023-03-13 05:22] LABS: HEMATOCRIT 38 % (35-52); LYMPHOCYTES # (AUTO) 0.7 10^3/uL (1.0-4.0); LYMPHOCYTES % (AUTO) 21 % (12-44); MEAN CORPUSCULAR HEMOGLOBIN 29 pg (25-34); MEAN CORPUSCULAR HGB CONC 32 g/dL (32-36); MEAN CORPUSCULAR VOLUME 89 fL (80-99); MONOCYTES # (AUTO) 0.4 10^3/uL (0.0-1.0); MONOCYTES % (AUTO) 13 % (0-12); NEUTROPHILS # (AUTO) 2.1 10^3/uL (1.8-7.8); NEUTROPHILS % (AUTO) 64 % (42-75); PLATELET COUNT 42 10^3/uL (130-400); WHITE BLOOD COUNT 3.2 10^3/uL (4.3-11.0)
[2023-03-13 05:45] LABS: ALBUMIN 2.1 GM/DL (3.2-4.5); BILIRUBIN,TOTAL 1.3 MG/DL (0.1-1.0); CALCIUM 6.8 MG/DL (8.5-10.1); CREATININE SERUM 0.57 MG/DL (0.60-1.30); MAGNESIUM 2.4 MG/DL (1.6-2.4); PHOSPHORUS 2.2 MG/DL (2.3-4.7); POTASSIUM 3.7 MMOL/L (3.6-5.0); TOTAL PROTEIN 5.6 GM/DL (6.4-8.2)
[2023-03-13 05:59] LABS: SMEAR SCAN COMMENT YES
[2023-03-13] MEDS: MAGNESIUM 1 GM/100 ML IVPB 100 ML IV SCH ×2 (06:02)
[2023-03-13] MEDS: POTASSIUM CL 10MEQ/50ML IVPB 50 ML IV SCH ×4 (06:02→07:10)
[2023-03-13] MEDS: KCL 20 MEQ TAB (K-DUR) PO SCH ×3 (06:03→06:14)
[2023-03-13] MEDS: MULTIVIT W/MINERALS TAB (THERAGRAN M) PO SCH (06:14)
[2023-03-13] MEDS: THIAMINE 100 MG (VITAMIN B-1) TAB PO SCH (06:14)
[2023-03-13] MEDS: RT-ALBUTEROL/IPRATROPIUM 3 ML (DUONEB) VIAL INH SCH ×3 (07:28→21:00)
[2023-03-13] MEDS: FOLIC ACID 1 MG TAB PO SCH (07:53)
[2023-03-13] MEDS: BENZONATATE 100 MG (TESSALON) CAPSULE PO SCH ×3 (07:53→20:39)
[2023-03-13] MEDS: MAGNESIUM OXIDE (MAG-OX)400 MG TAB PO SCH ×2 (07:53→20:39)
[2023-03-13] MEDS: SENNOSIDES 8.6 MG (SENOKOT) TAB PO SCH ×2 (09:00→20:22)
[2023-03-13] MEDS: DOCUSATE SODIUM 100 MG (COLACE) CAP PO SCH ×2 (09:00→20:22)
--- NOTE | 2023-03-13 09:51 | Tele-ICU Progress Note ---
Subjective Date Seen by a Provider: March 13, 2023 Subjective/Events-last exam This virtual visit was conducted using real time audio/video. Thank you for asking us to see this patient for respiratory insufficiency due to pna, sepsis. Also alcohol intox. Recent events: O2 needs increased 3 to 6 LPM. PE: VSS. O2 sat 92% on 6 LPM. HEENT: No obvious masses, adenopathy or JVD. Chest: clear to auscultation. CV: RRR S1 S2 No murmur or added sounds. Abd: Non-tender. Bowel sounds Y. : Unremarkable. Read N. [employer]/psychiatric: Grossly intact. No obvious focal findings. Extremities: No edema. Capillary refill < 3 seconds. Skin: unremarkable. Results: Decreased WCC 3.2, Alb 2.1. CXR: Hyperinflated, B LL infilts., unchanged. Available chart/ vitals / labs / images reviewed. Video assessment done using teleICU camera, rest of exam as per RN. A/P: Respiratory insufficiency: Continue present management with O2, duonebs Monitor for increasing oxygenation needs and/or need for intubation. Critical Care: critically ill patient. Cont. CIWA, abx. Discussed with RN Lee Ann. Asked RN to reach out to eICU if any questions or c oncerns later. Time spent with patient/coordination of care with other health professionals (mins):22 Sepsis Event Evaluation Height, Weight, BMI Height: '" Weight: lbs. oz. kg; 19.32 BMI Method: Focused Exam Lactate Level 03/12/23 00:09: Lactic Acid Level 2.46*H 03/12/23 03:11: Lactic Acid Level 2.31*H 03/12/23 08:17: Lactic Acid Level 2.39*H Exam Exam Patient acknowledged, consented, and participated in this virtual visit which was conducted using real time audio/video Vital Signs Date Time Temp Pulse Resp B/P (MAP) Pulse Ox O2 Delivery O2 Flow Rate FiO2 03/13/23 07:23 Nasal Cannula 5.00 03/13/23 06:00 90 21 113/65 (81) Nasal Cannula 3.00 03/13/23 05:00 98 18 126/70 (88) 89 Nasal Cannula 3.00 03/13/23 04:00 92 Nasal Cannula 3.00 03/13/23 04:00 98 19 122/72 (90) 89 Nasal Cannula 3.00 03/13/23 04:00 37.5 03/13/23 03:58 93 32 03/13/23 03:00 101 33 132/71 (91) 91 Nasal Cannula 3.00 03/13/23 02:46 93 Nasal Cannula 3.00 03/13/23 02:00 98 11 135/73 (93) 93 Nasal Cannula 3.00 03/13/23 01:00 98 18 129/69 (89) 93 Nasal Cannula 3.00 03/13/23 01:00 98 03/13/23 00:00 37.4 03/13/23 00:00 96 16 124/71 (88) 89 Nasal Cannula 3.00 03/12/23 23:59 92 Nasal Cannula 3.00 03/12/23 23:00 88 20 152/76 (101) 91 Nasal Cannula 3.00 03/12/23 22:23 94 Nasal Cannula 3.00 03/12/23 22:00 90 17 132/68 (89) 93 Nasal Cannula 3.00 03/12/23 21:00 92 20 130/73 (92) 92 Nasal Cannula 3.00 03/12/23 20:00 90 18 130/71 (90) 93 Nasal Cannula 3.00 03/12/23 20:00 92 Nasal Cannula 3.00 03/12/23 19:09 94 Nasal Cannula 3.00 03/12/23 19:00 93 18 126/72 (90) 94 Nasal Cannula 3.00 03/12/23 19:00 93 03/12/23 18:00 90 17 127/67 (87) 95 Nasal Cannula 3.00 03/12/23 17:00 86 19 129/72 (91) 92 Nasal Cannula 3.00 03/12/23 17:00 86 19 129/72 (91) 92 Nasal Cannula 3.00 03/12/23 16:50 93 Nasal Cannula 3.00 03/12/23 14:37 94 Nasal Cannula 3.00 03/12/23 10:29 93 Nasal Cannula 3.00 I & O 03/13/23 07:00 Intake Total 1295 ml Balance 1295 ml Height & Weight Height: '" Weight: lbs. oz. kg; 19.32 BMI Method: General Appearance: WD/WN, Chronically ill, Moderate Distress HEENT: PERRL/EOMI, TMs Normal, Normal ENT Inspection, Pharynx Normal Neck: Full Range of Motion, Normal Inspection, Non Tender, Supple Respiratory: Chest Non Tender, Lungs Clear, Normal Breath Sounds, No Accessory Muscle Use, No Respiratory Distress Cardiovascular: Regular Rate, Rhythm, No Edema, No Gallop, No JVD, No Murmur, Normal Peripheral Pulses Capillary Refill: Less Than 3 Seconds Extremity: Normal Capillary Refill, Normal Inspection, Normal Range of Motion, Non Tender, No Calf Tenderness, No Pedal Edema Neurologic/Psychiatric: Alert, Oriented x3, No Motor/Sensory Deficits Skin: Normal Color, Warm/Dry Lymphatic: No Adenopathy Results Lab Laboratory Tests 03/11/23 16:49 03/12/23 03:11 03/13/23 03:33 Assessment/Plan Assessment/Plan see free text. Critical Care: Critically Ill Patient HAI OSORIO MD March 13, 2023 09:51
--- NOTE | 2023-03-13 10:26 | Diagnostic Imaging Report ---
CHEST 1 VIEW, AP/PA ONLY Indication: Pneumonia Comparison: 03/12/2023 Findings: Stable bilateral perihilar consolidations. Small bilateral pleural effusions similar. No pneumothorax. Stable cardiac silhouette. Impression: 1. No change in bibasilar consolidations. Dictated by: Dictated on workstation # [id number]
--- NOTE | 2023-03-13 13:13 | Progress Note - Hospitalist ---
ALEX MYLES 03/13/23 1313: Subjective HPI/CC On Admission Date Seen by Provider: March 13, 2023 Time Seen by Provider: 10:00 CC: PNA with alcohol intoxication HPI: This is a 57yoWF clinic patient of [facility] who presented to the ER with cough of 4 months duration and multiple rounds of medications. PNA found on imaging. She arrived quite intoxicated so rest of details unobtainable. ICU admit will ensue due to AMS. Subjective/Events-last exam Pt doing okay this am. Nurse reports fever 38.2 and increased O2 requirements this am (3->6L nc), satting 92%. She continues to have some nausea but no episodes of vomiting today. Has been drinking and able to eat some over last 24 hours. She has good UOP and regular BM's, able to ambulate some with assistance. She still has coarse sounding cough, and is using incentive spirometer. Focused Exam Lactate Level 03/12/23 00:09: Lactic Acid Level 2.46*H 03/12/23 03:11: Lactic Acid Level 2.31*H 03/12/23 08:17: Lactic Acid Level 2.39*H Objective Exam Vital Signs Vital Signs Date Time Temp Pulse Resp B/P (MAP) Pulse Ox O2 Delivery O2 Flow Rate FiO2 03/13/23 12:31 97 03/13/23 11:51 36.9 03/13/23 11:00 114/71 (90) Nasal Cannula 5.00 03/13/23 10:00 18 92 03/13/23 03:58 32 Capillary Refill : Less Than 3 Seconds General Appearance: WD/WN, Chronically ill, Moderate Distress HEENT: PERRL/EOMI, Normal ENT Inspection, Pharynx Normal, Moist Mucous Membranes Neck: Full Range of Motion, Normal Inspection, Non Tender, Supple Respiratory: Chest Non Tender, No Accessory Muscle Use, Crackles, Decreased Breath Sounds, Other (Does not appear to be in respiratory distress despite low sats) Cardiovascular: Regular Rate, Rhythm, No Gallop, No Murmur, Normal Peripheral Pulses Gastrointestinal: Normal Bowel Sounds, No Pulsatile Mass, Non Tender, Soft Extremity: Normal Capillary Refill, Normal Inspection, Normal Range of Motion, Non Tender, No Calf Tenderness Skin: Normal Color, Warm/Dry Lymphatic: No Adenopathy Results/Procedures Lab Laboratory Tests 03/13/23 03:33 Patient resulted labs reviewed. Assessment/Plan Assessment and Plan Assess & Plan/Chief Complaint CC: AMS/Cough PNA Possible Aspiration - Cont zosyn and azithromycin - wean O2 as tolerated - ctm Hypoxia - increased O2 requirements this am - likely 2/2 PNA - given duonebs, cont scheduled and prn - cont abx - cont to use incentive spirometer - ctm Alcohol intoxication Alcohol W/D - CIWA protocol - Thiamine/folic acid/mag sulfate/multivitamin/dextrose/NaCl supplementation - ctm ELEN JOHN DO 03/13/232045: Supervisory-Addendum Brief Verification & Attestation Participated in pt care: history, MDM, physical Personally performed: exam, history, MDM, supervision of care Care discussed with: Medical Student Procedures: n/a Results interpretation: Verified all documentation Verification and Attestation of Medical Student E/M Service A medical student performed and documented this service in my presence. I reviewed and verified all information documented by the medical student and made modifications to such information, when appropriate. I personally performed the physical exam and medical decision making. Elen John, March 13, 2023,20:46 ALEX MYLES March 13, 2023 13:13 ELEN JOHN DO March 13, 2023 20:46
[2023-03-13] MEDS: THIAMINE INJECTION 100 MG, FOLIC ACID INJECTION 1 MG, MAGNESIUM SULFATE 2 GM, VITAMIN M... IV SCH ×5 (15:00)
[2023-03-13] MEDS: CALCIUM CARBONATE 500 MG (TUMS) TAB.CHEW PO PRN (17:51)
[2023-03-13] MEDS: AZITHROMYCIN 250 MG TAB (ZITHROMAX) PO SCH (17:51)
[2023-03-13] MEDS: ONDANSETRON 4 MG/2 ML (SDV) Z0FRAN IV PRN (19:43)
[2023-03-13] MEDS ORDERED: ENOXAPARIN 40 MG/0.4 ML (LOVENOX) SYR SC SCH (21:00)
[2023-03-14] MEDS: NS IV 1000 ML 1,000 ML IV SCH ×2 (00:02→09:10)
[2023-03-14] MEDS: RT-ALBUTEROL/IPRATROPIUM 3 ML (DUONEB) VIAL INH SCH ×4 (02:32→20:46)
[2023-03-14] MEDS: PIPERACILLIN SODIUM/TAZOBACTAM 4.5 GM in NS (IVPB) 100 ML IV SCH ×3 (03:18→19:50)
[2023-03-14] MEDS: guaiFENesin/CODEINE (ROBITUSSIN AC) 10ML UDC PO PRN ×3 (03:18→13:31)
[2023-03-14 03:55] LABS: HEMOGLOBIN 11.6 g/dL (11.5-16.0); NEUTROPHILS # (AUTO) 1.4 10^3/uL (1.8-7.8)
[2023-03-14 03:57] LABS: BASOPHILS % (AUTO) 0 % (0-10); EOSINOPHILS # (AUTO) 0.1 10^3/uL (0.0-0.3); EOSINOPHILS % (AUTO) 2 % (0-10); HEMATOCRIT 36 % (35-52); LYMPHOCYTES # (AUTO) 0.5 10^3/uL (1.0-4.0); LYMPHOCYTES % (AUTO) 24 % (12-44); MEAN CORPUSCULAR HEMOGLOBIN 29 pg (25-34); MEAN CORPUSCULAR HGB CONC 33 g/dL (32-36); MEAN CORPUSCULAR VOLUME 89 fL (80-99); MONOCYTES # (AUTO) 0.3 10^3/uL (0.0-1.0); MONOCYTES % (AUTO) 12 % (0-12); NEUTROPHILS % (AUTO) 62 % (42-75); WHITE BLOOD COUNT 2.2 10^3/uL (4.3-11.0)
[2023-03-14 04:02] LABS: ALBUMIN 2.1 GM/DL (3.2-4.5); POTASSIUM 3.7 MMOL/L (3.6-5.0)
[2023-03-14 04:03] LABS: PLATELET COUNT 35 10^3/uL (130-400)
[2023-03-14 04:04] LABS: CALCIUM 7.5 MG/DL (8.5-10.1)
[2023-03-14 04:05] LABS: TOTAL PROTEIN 5.4 GM/DL (6.4-8.2)
[2023-03-14 04:07] LABS: BILIRUBIN,TOTAL 1.2 MG/DL (0.1-1.0)
[2023-03-14 04:08] LABS: PHOSPHORUS 2.1 MG/DL (2.3-4.7)
[2023-03-14 04:09] LABS: CREATININE SERUM 0.57 MG/DL (0.60-1.30)
[2023-03-14 04:11] LABS: MAGNESIUM 1.5 MG/DL (1.6-2.4)
[2023-03-14] MEDS: MAGNESIUM 1 GM/100 ML IVPB 100 ML IV SCH ×5 (04:32→05:47)
[2023-03-14] MEDS: POTASSIUM CL 10MEQ/50ML IVPB 50 ML IV SCH ×2 (05:47)
[2023-03-14] MEDS: KCL 20 MEQ TAB (K-DUR) PO SCH ×3 (05:47→07:24)
[2023-03-14] MEDS: THIAMINE INJECTION 100 MG, FOLIC ACID INJECTION 1 MG, MAGNESIUM SULFATE 2 GM, VITAMIN M... IV SCH ×5 (07:08)
[2023-03-14] MEDS: THIAMINE 100 MG (VITAMIN B-1) TAB PO SCH (07:24)
[2023-03-14] MEDS: MULTIVIT W/MINERALS TAB (THERAGRAN M) PO SCH (07:24)
[2023-03-14] MEDS: CALCIUM CARBONATE 500 MG (TUMS) TAB.CHEW PO PRN ×2 (07:51→16:40)
--- NOTE | 2023-03-14 08:00 | Diagnostic Imaging Report ---
INDICATION: Pneumonia Single AP view of the chest is obtained with comparison made to study one day earlier. There has been mild worsening of bilateral basilar airspace disease and blunting of costophrenic sulci. Upper lobes remain clear with probable background air trapping. IMPRESSION: Increasing basilar infiltrates likely related to edema or pneumonitis with mild bilateral pleural fluid. Dictated by: Dictated on workstation # [id number]
[2023-03-14] MEDS: SENNOSIDES 8.6 MG (SENOKOT) TAB PO SCH ×2 (08:09→20:55)
[2023-03-14] MEDS: FOLIC ACID 1 MG TAB PO SCH (08:09)
[2023-03-14] MEDS: MAGNESIUM OXIDE (MAG-OX)400 MG TAB PO SCH (08:09)
[2023-03-14] MEDS: DOCUSATE SODIUM 100 MG (COLACE) CAP PO SCH ×2 (08:09→20:55)
[2023-03-14] MEDS: BENZONATATE 100 MG (TESSALON) CAPSULE PO SCH ×3 (08:09→20:57)
[2023-03-14] MEDS ORDERED: CALCIUM CARBONATE PO PRN (11:00)
--- NOTE | 2023-03-14 11:14 | Tele-ICU Progress Note ---
Subjective Date Seen by a Provider: March 14, 2023 Time Seen by a Provider: 11:14 Subjective/Events-last exam (Tele-ICU Physician , Progress Note ) Service provided via interactive audio and video telecommunications E-CARE system to a patient admitted to ICU bed in [facility]. Patient is seen today due to persistent need of ICU care Available chart/ vitals / labs / Images reviewed Video assessment done using teleICU camera, rest of exam as per RN Discussed with RN Events overnight : Afebrile hemodynamically stable Respiratory - I/O = Drips: ns 100 Pressors- no Hospital course: 03/11- admit 57 yo F w/ complaint of cough x 4months, hx alcohol use. Last drink yesterday, appears intoxicated. dx: severe sepsis ,Pneumonia, alcohol intoxication,liver cirrhosis A/P Pneumonia possibly due to aspiration while intoxicated, LLL PNA -cont abx- zosyn - 6L o2 Hypxia - CTA without large PE, with bilateral LL pneumonia - will stop IVF - suspect more pulm edema Alcohol withdrawal syndrome improving - CIWA -thiamine and folic acid History of cirrhosis of liver - still drinking ETON Thrombocytopenia - chronic secondary to cirrhosis Lines : , (Central Line Necessity Reviewed) Read: OG: Nutrition: Analgesia: Anxiety/ delirium VTE Prophylaxis: LOVENOX stopped due to PLT < 60 Stress Ulcer Prophylaxis: Plans in collaboration with bedside consultants and IM MDs. Discussed with RN to reach out if any questions or concerns Case and care daily discussed on multidisciplinary rounds ( RN, PharmD, Internet Marketing Executive , Respiratory Therapy, dairy farmworker ) A total of 25 minutes of critical care time was devoted to this patient today, required to treat and/or prevent further deterioration of critical care condition ( as above ) . I am remotely monitoring this patient from another state. I am unable to do the bedside exam, and history/physical and pertinent information is taken from other notes in the computer and bedside staff. Sepsis Event Evaluation Height, Weight, BMI Height: '" Weight: lbs. oz. kg; 19.43 BMI Method: Focused Exam Lactate Level 03/12/23 00:09: Lactic Acid Level 2.46*H 03/12/23 03:11: Lactic Acid Level 2.31*H 03/12/23 08:17: Lactic Acid Level 2.39*H Exam Exam Patient acknowledged, consented, and participated in this virtual visit which was conducted using real time audio/video Vital Signs Date Time Temp Pulse Resp B/P (MAP) Pulse Ox O2 Delivery O2 Flow Rate FiO2 03/14/23 10:00 92 23 115/71 (89) 94 Nasal Cannula 4.00 03/14/23 09:00 104 20 116/73 (89) Nasal Cannula 4.00 03/14/23 08:00 99 11 114/69 (84) 91 Nasal Cannula 4.00 03/14/23 07:54 Nasal Cannula 4.00 03/14/23 07:49 37.6 03/14/23 07:36 90 Nasal Cannula 4.00 03/14/23 07:13 91 High Flow N/C 4.00 03/14/23 07:00 98 03/14/23 07:00 93 22 113/61 (81) Nasal Cannula 6.00 03/14/23 06:00 96 18 118/71 (87) 91 Nasal Cannula 6.00 03/14/23 05:00 100 19 116/68 (84) 92 Nasal Cannula 6.00 03/14/23 04:00 105 21 115/73 (87) 92 Nasal Cannula 6.00 03/14/23 04:00 90 Nasal Cannula 6.00 03/14/23 04:00 37.4 Nasal Cannula 6.00 03/14/23 03:00 104 15 121/75 (90) 91 Nasal Cannula 5.00 03/14/23 02:32 95 High Flow N/C 4.00 03/14/23 02:00 99 23 91 Nasal Cannula 5.00 03/14/23 01:00 92 03/14/23 01:00 93 20 121/69 (86) 95 Nasal Cannula 5.00 03/14/23 00:00 97 21 127/78 (94) 93 Nasal Cannula 5.00 03/14/23 00:00 94 Nasal Cannula 6.00 03/13/23 23:00 103 15 124/74 (91) 93 Nasal Cannula 5.00 03/13/23 22:00 109 14 123/76 (92) 90 Nasal Cannula 5.00 03/13/23 21:00 95 Nasal Cannula 4.00 03/13/23 21:00 103 15 115/73 (87) 96 Nasal Cannula 5.00 03/13/23 20:10 92 Nasal Cannula 6.00 03/13/23 20:00 85 20 132/76 (94) 94 Nasal Cannula 5.00 03/13/23 19:49 37.1 03/13/23 19:00 88 03/13/23 19:00 89 21 125/82 (96) 93 Nasal Cannula 5.00 03/13/23 18:00 86 14 127/83 (98) 91 Nasal Cannula 5.00 03/13/23 17:00 89 17 113/77 (89) 91 Nasal Cannula 5.00 03/13/23 16:30 93 Nasal Cannula 6.00 03/13/23 16:00 86 13 108/66 (80) 92 Nasal Cannula 5.00 03/13/23 15:39 36.4 03/13/23 15:00 88 17 119/70 (86) 92 Nasal Cannula 5.00 03/13/23 14:00 93 15 108/71 (83) 92 Nasal Cannula 5.00 03/13/23 13:00 86 10 121/79 (93) 92 Nasal Cannula 5.00 03/13/23 12:31 97 03/13/23 12:30 93 Nasal Cannula 6.00 03/13/23 12:00 89 18 114/72 (86) 91 Nasal Cannula 5.00 03/13/23 11:51 36.9 I & O 03/14/23 07:00 Intake Total 4485 ml Output Total 925 ml Balance 3560 ml Height & Weight Height: '" Weight: lbs. oz. kg; 19.43 BMI Method: General Appearance: WD/WN, Chronically ill, Moderate Distress HEENT: PERRL/EOMI, Normal ENT Inspection, Pharynx Normal, Moist Mucous Membranes Neck: Full Range of Motion, Normal Inspection, Non Tender, Supple Respiratory: Chest Non Tender, No Accessory Muscle Use, Crackles, Decreased Breath Sounds, Other (Does not appear to be in respiratory distress despite low sats) Cardiovascular: Regular Rate, Rhythm, No Gallop, No Murmur, Normal Peripheral Pulses Capillary Refill: Less Than 3 Seconds Extremity: Normal Capillary Refill, Normal Inspection, Normal Range of Motion, Non Tender, No Calf Tenderness Neurologic/Psychiatric: Alert, Oriented x3, No Motor/Sensory Deficits Skin: Normal Color, Warm/Dry Lymphatic: No Adenopathy Results Lab Laboratory Tests 03/13/23 03:33 03/14/23 03:44 Assessment/Plan Assessment/Plan 1 SHULZHENKO,WINIFRED V MD March 14, 2023 11:14
[2023-03-14] MEDS: ONDANSETRON 4 MG/2 ML (SDV) Z0FRAN IV PRN (11:31)
[2023-03-14] MEDS: PANTOPRAZOLE 40 MG (PROTONIX) TAB PO SCH (11:31)
[2023-03-14] MEDS: LORazepam 1 MG (ATIVAN) TAB PO PRN ×2 (11:40→19:50)
--- NOTE | 2023-03-14 13:48 | Progress Note - Hospitalist ---
ALEX MYLES 03/14/23 1348: Subjective HPI/CC On Admission Date Seen by Provider: March 14, 2023 Time Seen by Provider: 10:45 CC: PNA with alcohol intoxication Subjective/Events-last exam Pt improving today. Eating more yesterday and this am and tolerating well. Yesterday after breathing treatment and spirometer work had coughing episode that induced small vomitus though otherwise no vomiting. Pt endorses mild nausea. Denies pain at this time. Has regular UOP and BM's, denies f/c. Pt paty thing comfortably with O2 requirements down to 4L. Pt improving and currently stable enough to move to floor. On review of pt home meds, noted pt takes humira twice/month for psoriasis. Immunosupression from this drug with immunosuppression from cirrhosis, likely explains severe course and slow recovery from PNA. Humira known to cause severe hepatic reactions. With known cirrhosis and resultant immunocompromised state, pt should discontinue this drug op as it may worsen her current hepatic issues and enhance immunosuppression from her cirrhosis. Focused Exam Lactate Level 03/12/23 00:09: Lactic Acid Level 2.46*H 03/12/23 03:11: Lactic Acid Level 2.31*H 03/12/23 08:17: Lactic Acid Level 2.39*H Objective Exam Vital Signs Vital Signs Date Time Temp Pulse Resp B/P (MAP) Pulse Ox O2 Delivery O2 Flow Rate FiO2 03/14/23 13:31 Nasal Cannula 6.00 03/14/23 12:00 89 7 118/70 (86) 92 03/14/23 11:46 37.2 03/13/23 03:58 32 Capillary Refill : Less Than 3 Seconds General Appearance: WD/WN, Chronically ill, Mild Distress HEENT: PERRL/EOMI, Normal ENT Inspection, Pharynx Normal, Moist Mucous Membranes Neck: Full Range of Motion, Normal Inspection, Non Tender, Supple Respiratory: Chest Non Tender, No Accessory Muscle Use, Crackles, Decreased Breath Sounds Cardiovascular: Regular Rate, Rhythm, No Edema, No Gallop, No Murmur, Normal Peripheral Pulses Gastrointestinal: Normal Bowel Sounds, No Pulsatile Mass, Non Tender, Soft Extremity: Normal Capillary Refill, Normal Inspection, Normal Range of Motion, Non Tender, No Calf Tenderness Skin: Normal Color, Warm/Dry Lymphatic: No Adenopathy Results/Procedures Lab Laboratory Tests 03/14/23 03:44 Patient resulted labs reviewed. Assessment/Plan Assessment and Plan Assess & Plan/Chief Complaint CC: AMS/Cough PNA Possible Aspiration - CXR without improvement - Slow recovery likely explained by immunosuppression 2/2 humira and cirrhosis - will need reevaluation of Humira prescription op - Cont zosyn and azithromycin - O2 requirements improving - wean O2 as tolerated - ctm Hypoxia 2/2 PNA - given duonebs, cont scheduled and prn - cont abx - cont to use incentive spirometer - ctm Alcohol intoxication Alcohol W/D - CIWA protocol - Thiamine/folic acid/mag sulfate/multivitamin/dextrose/NaCl supplementation - ctm ELEN JOHN DO 03/15/23 0526: Supervisory-Addendum Brief Verification & Attestation Participated in pt care: history, MDM, physical Personally performed: exam, history, MDM, supervision of care Care discussed with: Medical Student Procedures: n/a Results interpretation: Verified all documentation Verification and Attestation of Medical Student E/M Service A medical student performed and documented this service in my presence. I reviewed and verified all information documented by the medical student and made modifications to such information, when appropriate. I personally performed the physical exam and medical decision making. Elen John March 15, 2023,05:26 ALEX MYLES March 14, 2023 13:48 ELEN JOHN DO March 15, 2023 05:26
--- NOTE | 2023-03-14 15:08 | Occupational Therapy Eval ---
OT Evaluation-General/PLF Medical Diagnosis Admission Date March 11, 2023 at 19:55 Medical Diagnosis: PNA Onset Date: March 11, 2023 Therapy Diagnosis Therapy Diagnosis: WEAKNESS Precautions Precautions/Isolations: Seizure, Fall Prevention, Standard Precautions Weight Bear Status Weight Bearing Restriction: Full Weight Bearing Referral Referral Reason: Activity Tolerance, Evaluation/Treatment Medical History Additional Medical History This is a 57yoWF clinic patient of [facility] who presented to the ER with cough of 4 months duration and multiple rounds of medications. PNA found on imaging. She arrived quite intoxicated so rest of details unobtainable. ICU admit will ensue due to AMS. Current History PNA poss aspiration in alcoholic Alcohol intoxication Smoker Social History Home: Single Level Current Living Status: Other Family ADL-Prior Level of Function SCALE: Activities may be completed with or without assistive devices. 9-Pkynhhpfzg-moajkbw completes the activity by him/herself with no assistance from a helper. 5-Set-up or Clean-up Assistance-helper sets up or cleans up; patient completes activity. [place] assists only prior to or following the activity. 4-Supervision or Touching Assistance-helper provides verbal cues and/or touching/steadying and/or contact guard assistance as patient completes activity. Assistance may be provided throughout the activity or intermittently. 3-Partial/Moderate Assistance-helper does LESS THAN HALF the effort. [place] lifts, holds or supports trunk or limbs, but provides less than half the effort. 2-Substantial/Maximal Assistance-helper does MORE THAN HALF the effort. [place] lifts or holds trunk or limbs and provides more than half the effort. 8-Pqiioikqi-wmzetu does ALL the effort. Patient does none of the effort to complete the activity. Or, the assistance of 2 or more helpers is required for the patient to complete the activity. If activity was not attempted, code reason: 7-Patient Refused. 9-Not Applicable-not attempted and the patient did not perform the activity before the current illness, exacerbation or injury. 10-Not Attempted due to Environmental Limitations-(lack of equipment, weather restraints, etc.). 88-Not Attempted due to Medical Conditions or Safety Concerns. Self Care: Independent Functional Cognition: Independent Drive Self: Yes OT Current Status Subjective Patient up in bed, agreeable to OT Mental Status/Objective Patient Orientation: Person, Place, Time, Situation Attachments: IV, Oxygen Current Upper Extremity ROM B UE ROM WFLS Upper Extremity Coordination MILD TREMORS Upper Extremity Strength -4/5 GROSSLY ADL-Treatment Eating (QC): 6 Oral Hygiene (QC): 5 Shower/Bathe Self (QC): 7 (DECLINED, TRANSFERRING TO FOURTH FLOOR MEDICAL) Upper Body Dressing (QC): 4 Lower Body Dressing (QC): 4 On/Off Footwear (QC): 5 Toileting Hygiene (QC): 4 Other Treatments TIMED 30 SECOND SIT STAND REPS, COMPLETED 4 REPS IN 30 SECONDS, SITTING EOB FOR FUNCTIONAL REACH TASKS. 02 88-92% 4 LITTERS Education OT Patient Education: Energy conservation, Modified ADL techniques, Progress toward Goal/Update tx plan, Purpose of tx/functional activities, Reviewed precautions, Rehab process, Safety issues, Transfer techniques Teaching Recipient: Patient Teaching Methods: Demonstration, Discussion Response to Teaching: Verbalize Understanding, Reinforcement Needed OT Field Service Technician Poultry Goals Retirement Goals Eating (QC): 6 Oral Hygiene (QC): 6 Toileting Hygiene (QC): 6 Shower/Bathe Self (QC): 6 Upper Body Dressing (QC): 6 Lower Body Dressing (QC): 6 On/Off Footwear (QC): 6 1=Demonstrate adherence to instructed precautions during ADL tasks. 2=Patient will verbalize/demonstrate understanding of assistive devices/modifications for ADL. 3=Patient will improve strength/tolerance for activity to enable patient to perform ADL's. OT Education/Plan Problem List/Assessment Assessment: Decreased Activ Tolerance, Decreased Safety Aware, Impaired Self- Care Skills Discharge Recommendations Plan/Recommendations: Continue POC Therapy Discharge Recommendati: Home & Family Treatment Plan/Plan of Care Treatment,Training & Education: Yes Patient would benefit from OT for education, treatment and training to promote independence in ADL's, mobility, safety and/or upper extremity function for ADL's. Plan of Care: ADL Retraining, Functional Mobility, Group Exercise/Act as Ind, UE Funct Exercise/Act Treatment Duration: March 16, 2023 Frequency: 3 times per week (3-5 TIMES PER WEEK) Estimated Hrs Per Day: .25 hour per day Agreement: Yes Rehab Potential: Guarded RETURN TO BED AND BEGAN PACKING ITEMS FOR FLOOR MOVE Time Start Time: 15:00 Stop Time: 15:19 DATE: March 14, 2023 Total Time Billed (hr/min): 19 Billed Treatment Time EVM 19 MIN ALANA COOMBS OT March 14, 2023 15:08
--- NOTE | 2023-03-14 15:25 | Physical Therapy Evaluation ---
PT Evaluation-General Medical Diagnosis Admission Date March 11, 2023 at 19:55 Medical Diagnosis: Alcohol intoxication, cirrhosis Onset Date: March 11, 2023 Therapy Diagnosis Therapy Diagnosis: Gait deficit, strength deficit Precautions Precautions/Isolations: Seizure, Fall Prevention, Standard Precautions Weight Bear Status Right Lower Extremity: Right Full Weight Bearing Left Lower Extremity: Left Full Weight Bearing Referral Physician: Dr. Bowden Reason for Referral: Evaluation/Treatment Medical History Reviewed History: Yes Social History Home: Apartment Current Living Status: Alone Entry Into Home: Elevator PT Steps Into Home: 0 Prior Prior Level of Function SCALE: Activities may be completed with or without assistive devices. 0-Xuaczxjnsq-oeuvrxf completes the activity by him/herself with no assistance from a helper. 5-Set-up or Clean-up Assistance-helper sets up or cleans up; patient completes activity. [place] assists only prior to or following the activity. 4-Supervision or Touching Assistance-helper provides verbal cues and/or touching/steadying and/or contact guard assistance as patient completes activity. Assistance may be provided throughout the activity or intermittently. 3-Partial/Moderate Assistance-helper does LESS THAN HALF the effort. [place] lifts, holds or supports trunk or limbs, but provides less than half the effort. 2-Substantial/Maximal Assistance-helper does MORE THAN HALF the effort. [place] lifts or holds trunk or limbs and provides more than half the effort. 4-Qgxcbtssj-iwtyhb does ALL the effort. Patient does none of the effort to complete the activity. Or, the assistance of 2 or more helpers is required for the patient to complete the activity. If activity was not attempted, code reason: 7-Patient Refused. 9-Not Applicable-not attempted and the patient did not perform the activity be fore the current illness, exacerbation or injury. 10-Not Attempted due to Environmental Limitations-(lack of equipment, weather restraints, etc.). 88-Not Attempted due to Medical Conditions or Safety Concerns. Bed Mobility: 6 Transfers (B,C,W/C): 6 Gait: 6 Stairs: 6 Indoor Mobility (Ambulation): Independent Stairs: Independent Prior Devices Use: None PT Evaluation-Current Subjective Patient sitting up in bed upon PT arrival, agreeable to treatment. Patient rates pain at 0/10 currently. Objective Patient Orientation: Person, Place, Time, Situation Attachments: Oxygen, Read Catheter, IV ROM/Strength ROM Lower Extremities WFLs BLEs all planes Strength Lower Extremities 3+/5 BLEs all planes Sensory Vision: Functional Hearing: Hearing Aid/Aides Sensation Right Lower Extremit: Intact Sensation Left Lower Extremity: Intact Transfers Roll Left to Right (QC): 4 Sit to Lying (QC): 4 Lying to Sitting/Side of Bed(Q: 4 Sit to Stand (QC): 4 Chair/Azv-mm-Quftz Xfer(QC): 4 Gait Does the Patient Walk?: Yes Mode of Locomotion: Walk Anticipated Mode of Locomotion: Walk Walk 10 feet (QC): 4 Walk 50 ft with 2 Turns(QC): 4 Walk 150 ft (QC): 4 Distance: 200 ft Gait Assistive Device: None Balance Sitting Static: Fair Sitting Dynamic: Fair Standing Static: Fair Standing Dynamic: Fair Assessment/Needs Patient tolerated treatment fair. She performs all observed bed mobility and transfers with SBA. Patient ambulates 150 feet with no AD, with CARDROOM SUPERVISOR and verbal cues for safety, progression, balance and conservation of energy. Patient sitting EOB post treatment with OT in the room, with all needs met, nursing notified. Rehab Potential: Fair PT Digital Data Analyst Goals Digital Data Analyst Goals PT Digital Data Analyst Goals Time Frame: April 10, 2023 Roll Left & Right (QC): 6 Sit to Lying (QC): 6 Lying-Sitting on Side/Bed(QC): 6 Sit to Stand (QC): 6 Chair/Daa-sb-Qjwxn Xfer(QC): 6 Toilet Transfer (QC): 6 Does the Patient Walk: Yes Walk 10 feet (QC): 6 Walk 50ft with 2 Turns (QC): 6 Walk 150 ft (QC): 6 1 Step (curb) (QC): 4 PT Plan Problem List Problem List: Activity Tolerance, Functional Strength, Safety, Balance, Gait, Transfer, Bed Mobility, ROM Treatment/Plan Treatment Plan: Continue Plan of Care Treatment Plan: Bed Mobility, Education, Functional Activity [place], Functional Strength, Group Therapy, Gait, Safety, Therapeutic Exercise, Transfers Treatment Duration: April 10, 2023 Frequency: 6 times per week Estimated Hrs Per Day: .25 hour per day Patient and/or Family Agrees t: Yes Safety Risks/Education Patient Education: Gait Training, Transfer Techniques Teaching Recipient: Patient Teaching Methods: Demonstration, Discussion Response to Teaching: Verbalize Understanding, Return Demonstration Time Time In: 1436 Time Out: 1452 DATE: March 14, 2023 Total Billed Treatment Time: 16 Total Billed Treatment Visit, GERRI FLORES PT March 14, 2023 15:25
[2023-03-14] MEDS: AZITHROMYCIN 250 MG TAB (ZITHROMAX) PO SCH (16:44)
[2023-03-14 19:04] VITALS: BP 118/72
[2023-03-14] MEDS ORDERED: FERROUS SULF 325 MG (IRON) TAB PO SCH (21:00)
[2023-03-14] MEDS ORDERED: hydrOXYzine (VISTARIL/ATARAX) 25 MG capsule/tablet PO SCH (21:00)
[2023-03-14] MEDS ORDERED: NON-FORMULARY MEDICATION 1 EA EA (Alendronate Sodium 10 MG) PO SCH (21:00)
[2023-03-14] MEDS ORDERED: PANTOPRAZOLE 40 MG (PROTONIX) TAB PO SCH (21:00)
[2023-03-15 00:15] VITALS: BP 125/74
[2023-03-15] MEDS: RT-ALBUTEROL/IPRATROPIUM 3 ML (DUONEB) VIAL INH SCH ×2 (02:38→07:38)
[2023-03-15 04:22] VITALS: BP 133/67
[2023-03-15] MEDS: PIPERACILLIN SODIUM/TAZOBACTAM 4.5 GM in NS (IVPB) 100 ML IV SCH ×2 (04:34→12:04)
[2023-03-15 05:32] LABS: EOSINOPHILS # (AUTO) 0.1 10^3/uL (0.0-0.3); HEMOGLOBIN 11.8 g/dL (11.5-16.0); LYMPHOCYTES # (AUTO) 0.4 10^3/uL (1.0-4.0)
[2023-03-15 05:34] LABS: BASOPHILS % (AUTO) 1 % (0-10); EOSINOPHILS % (AUTO) 2 % (0-10); HEMATOCRIT 36 % (35-52); LYMPHOCYTES % (AUTO) 15 % (12-44); MEAN CORPUSCULAR HEMOGLOBIN 29 pg (25-34); MEAN CORPUSCULAR HGB CONC 33 g/dL (32-36); MEAN CORPUSCULAR VOLUME 90 fL (80-99); MONOCYTES # (AUTO) 0.3 10^3/uL (0.0-1.0); MONOCYTES % (AUTO) 10 % (0-12); NEUTROPHILS % (AUTO) 72 % (42-75); WHITE BLOOD COUNT 2.8 10^3/uL (4.3-11.0)
[2023-03-15 05:35] LABS: PLATELET COUNT 30 10^3/uL (130-400)
[2023-03-15 06:00] LABS: ALBUMIN 2.1 GM/DL (3.2-4.5)
[2023-03-15 06:02] LABS: CALCIUM 7.4 MG/DL (8.5-10.1)
[2023-03-15 06:03] LABS: TOTAL PROTEIN 5.3 GM/DL (6.4-8.2)
[2023-03-15 06:05] LABS: BILIRUBIN,TOTAL 0.9 MG/DL (0.1-1.0)
[2023-03-15 06:07] LABS: CREATININE SERUM 0.57 MG/DL (0.60-1.30)
[2023-03-15 06:10] LABS: MAGNESIUM 1.5 MG/DL (1.6-2.4)
[2023-03-15] MEDS: KCL 20 MEQ TAB (K-DUR) PO SCH (06:35)
[2023-03-15] MEDS: MULTIVIT W/MINERALS TAB (THERAGRAN M) PO SCH (06:35)
[2023-03-15 08:00] VITALS: BP 120/77
[2023-03-15] MEDS ORDERED: LORATADINE (CLARITIN) 10 MG TAB PO SCH (09:00)
[2023-03-15] MEDS ORDERED: SPIRONOLACTONE 100 MG (ALDACTONE) TABLET PO SCH (09:00)
[2023-03-15] MEDS ORDERED: FUROSEMIDE 40 MG (LASIX) TAB PO SCH (09:00)
[2023-03-15] MEDS ORDERED: LACTULOSE SYRUP 10GM/15ML (ENULOSE) 30ML UDC PO SCH (09:00)
[2023-03-15] MEDS: DOCUSATE SODIUM 100 MG (COLACE) CAP PO SCH (09:33)
[2023-03-15] MEDS: FOLIC ACID 1 MG TAB PO SCH (09:33)
[2023-03-15] MEDS: SENNOSIDES 8.6 MG (SENOKOT) TAB PO SCH (09:33)
[2023-03-15] MEDS: BENZONATATE 100 MG (TESSALON) CAPSULE PO SCH ×2 (09:33→12:04)
[2023-03-15] MEDS: PANTOPRAZOLE 40 MG (PROTONIX) TAB PO SCH (09:33)
[2023-03-15] MEDS ORDERED: IPRA3AMP31 INH (10:49)
[2023-03-15] MEDS ORDERED: AMOX1TAB12 PO (10:49)
[2023-03-15] MEDS ORDERED: FOLI1TAB33 PO (10:49)
[2023-03-15] MEDS ORDERED: BENZ100C18 PO (10:49)
[2023-03-15] MEDS ORDERED: ONDA4TAB11 SL (10:49)
[2023-03-15] MEDS ORDERED: MULT-1137 PO (10:49)
--- NOTE | 2023-03-15 10:50 | D/C HH Face to Face Order ---
D/C Face to Face Orders Reconcile Patient Problems Problems Reviewed?: Yes Instructions for Patient Via [employer], Patient Instructions/FollowUp: PCP 1 week Physician to follow Patient: [facility] Discharge Diet for Home: No Restrictions Patient Problems: PNA Liver failure ETOHism Patient Data-Allergies,Ht & Wt Patient Allergies: Coded Allergies: Sulfa (Sulfonamide Antibiotics) (Verified Allergy, Unknown, 05/29/22) cortisone (Verified Allergy, Unknown, 05/29/22) Home Health Need/Face to Face Date of Face to Face: March 15, 2023 Clinical Findings: Generalized weakness and fatigue, Instability, Muscle w eakness, Shortness of breath I have seen Pt [id number]: Yes Discharged To: Home Diagnosis/Conditions: Debility Patient is Homebound due to: Popeye fall risk due to instabilty, Muscle weakness, Shortness of breath/distress Homebound Status Due to the above stated illness, injury or surgical procedure (medical condition or diagnosis) and associated clinical findings, the patient is homeb ound because of his/her inability to leave home except with aid of a supportive device and/or person AND leaving the home requires a considerable and taxing effort or is medically contraindicated. Pt req the following assistanc: Walker Home Health Nursing Orders Home Health Services Order: Nursing Services, Tire Mechanic-Evaluate & Treat, Physical Therapy-Evaluate & Treat Home Health Infusion Therapy Line Start Date: March 11, 2023 Certify Stmt I certify that this patient is under my care and that I, a nurse practitioner or a physician; a actuarial assistant working with me, had a face to face encounter that - meets the physician face to face encounter requirements with this patient as dated. OSITO JOHN DO March 15, 2023 10:50
--- NOTE | 2023-03-15 10:51 | Discharge Summary ---
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 Pt has a history of alcohol abuse, stated she last drank yesterday, but patient appeared intoxicated and smelled of alcohol. She has known cirrhosis, esophageal varices, osteoporosis, arthritis, and psoriasis. Pt was found to have BL PNA on imaging and admited to ICU for IV abx treatment and CIWA protocol. Her PNA was treated with ceftriaxone and azithromycin. She required O2 support and initially had low O2 sats (high 80's) though this improved with duoneb breathing treatments. Pt received Thiamine/folic acid/mag sulfate/multivitamin/dextrose/NaCl supplementation with chronic EtOH abuse, but only required a few doses of ativan per CIWA protocol and demonstrated only mild sxs of alcohol w/d after initial intoxication subsided. Pt continued to receive these treatments with improvement in O2 requirements and mentation each day and was able to eat more with progressively less nausea each day until 03/14 when she was determined to be stable enough to move to floor. Today she is stable and ready for discharge, will need home O2 eval before discharge. Additionally, it was noted that the pt receives humira from her cardiac specialist for psoriasis. She is already immuno-compromised with her cirrhosis and humira carries a high risk of sever hepatic rxns and enhancement of existing liver damage. Pt was advised to stop taking humira and revist this with her provider. ALEX MYLES Labs and Pending Lab Test: Laboratory Tests 03/15/23 05:23: White Blood Count 2.8L, Red Blood Count 4.04, Hemoglobin 11.8, Hematocrit 36, Mean Corpuscular Volume 90, Mean Corpuscular Hemoglobin 29, Mean Corpuscular H emoglobin Concent 33, Red Cell Distribution Width 18.6H, Platelet Count 30*L, Mean Platelet Volume , Immature Granulocyte % (Auto) 0, Neutrophils (%) (Auto) 72, Lymphocytes (%) (Auto) 15, Monocytes (%) (Auto) 10, Eosinophils (%) (Auto) 2, Basophils (%) (Auto) 1, Neutrophils # (Auto) 2.0, Lymphocytes # (Auto) 0.4L, Monocytes # (Auto) 0.3, Eosinophils # (Auto) 0.1, Basophils # (Auto) 0.0, Immature Granulocyte # (Auto) 0.0, Percent Immature Platelet Fraction 7.1, Sodium Level 132L, Potassium Level 4.0, Chloride Level 106, Carbon Dioxide Level 18L, Anion Gap 8, Blood Urea Nitrogen 5L, Creatinine 0.57L, Estimat Glomerular Filtration Rate 107, BUN/Creatinine Ratio 9, Glucose Level 91, Calcium Level 7.4L, Corrected Calcium 8.9, Magnesium Level 1.5L, Total Bilirubin 0.9, Aspartate Amino Transf (AST/SGOT) 61H, Alanine Aminotransferase (ALT/SGPT) 22, Alkaline Phosphatase 90, Total Protein 5.3L, Albumin 2.1L Microbiology 03/11/23 MRSA Screen - Final, Complete MRSA not isolated 03/11/23 Blood Culture - Preliminary, Resulted No growth Home Meds Active Amox Tr-K Clv 875-125 mg Tab (Amoxicillin/Potassium Clav) 875 Mg-125 Mg Tablet 1 Each PO BID Tab-A-[place]omo Multivit with Iron (Multivitamin/Iron/Folic Acid) 18 Mg Iron-400 Mcg Tablet 1 Ea PO DAILY@0700 Folic Acid 1 Mg Tablet 1 Mg PO DAILY Ondansetron Odt (Ondansetron) 4 Mg Tab.rapdis 4 Mg SL Q4H PRN Tessalon Perles (Benzonatate) 100 Mg Capsule 200 Mg PO TID Iprat-Albut 0.5-3(2.5) mg/3 ml (Ipratropium/Albuterol Sulfate) 0.5 Mg-3 Mg (2.5 Mg Base)/3 Ml Ampul.neb 3 Ml INH RTQ6HR Reported Ferosul (Ferrous Sulfate) 325 Mg (65 Mg Iron) Tablet 325 Mg PO HS Calcium Carbonate 300 Mg Calcium (750 Mg) Tab.chew 2-3 Ea PO TID PRN Alendronate Sodium 10 Mg Tablet 10 Mg PO HS Humira Pen (Adalimumab) 40 Mg/0.4 Ml Pen.ij.kit 40 Mg INJ EVERY 14 DAYS Furosemide 40 Mg Tablet 40 Mg PO DAILY Lactulose 10 Gram/15 Ml Solution 15 Ml PO DAILY Pantoprazole Sodium 40 Mg Tablet.dr 40 Mg PO BID Hydroxyzine HCl 25 Mg Tablet 25 Mg PO HS Spironolactone 100 Mg Tablet 100 Mg PO DAILY Loratadine 10 Mg Tablet 10 Mg PO DAILY Assessment/Pt Instructions PCP 1 week Discharge Planning: <30 minutes discharge planning Discharge Physical Examination Vital Signs Vital Signs Date Time Temp Pulse Resp B/P (MAP) Pulse Ox O2 Delivery O2 Flow Rate FiO2 03/15/23 09:00 92 High Flow N/C 5.00 03/15/23 08:00 36.9 107 18 120/77 (91) 03/13/23 03:58 32 General Appearance: No Apparent Distress, WD/WN Respiratory: Lungs Clear, Normal Breath Sounds Cardiovascular: Regular Rate, Rhythm Allergies: Coded Allergies: Sulfa (Sulfonamide Antibiotics) (Verified Allergy, Unknown, 05/29/22) cortisone (Verified Allergy, Unknown, 05/29/22) Discharge Summary Date of Admission March 11, 2023 at 19:55 Date of Discharge Discharge Date: March 15, 2023 Admission Diagnosis Assessment: PNA poss aspiration in alcoholic Alcohol intoxication Smoker Plan: ICU IV abx cover for poss aspiration Alcohol withdrawal protocol Discharge Diagnosis OSITO JOHN DO March 15, 2023 10:51
--- NOTE | 2023-03-15 11:24 | Physical Therapy Daily Note ---
PT Daily Note-Current Subjective Patient is up independently in room. Agrees to PT. Pain Section J - Health Conditions 1. Rarely or not at all 2. Occasionally 3. Frequently 4. Almost constantly 8. Unable to answer Pain Effect on Sleep: 1 Pain Interference with Therapy: 1 Pain Interference w/Day-to-Day: 1 Mental Status Patient Orientation: Normal For Age Attachments: Oxygen (4L HF) Transfers SCALE: Activities may be completed with or without assistive devices. 6-Utdbvqzjcc-qlatawg completes the activity by him/herself with no assistance from a helper. 5-Set-up or Clean-up Assistance-helper sets up or cleans up; patient completes activity. [place] assists only prior to or following the activity. 4-Supervision or Touching Assistance-helper provides verbal cues and/or touching/steadying and/or contact guard assistance as patient completes activity. Assistance may be provided throughout the activity or intermittently. 3-Partial/Moderate Assistance-helper does LESS THAN HALF the effort. [place] lifts, holds or supports trunk or limbs, but provides less than half the effort. 2-Substantial/Maximal Assistance-helper does MORE THAN HALF the effort. [place] lifts or holds trunk or limbs and provides more than half the effort. 7-Xrcheqrvw-ctmqxy does ALL the effort. Patient does none of the effort to comp lete the activity. Or, the assistance of 2 or more helpers is required for the patient to complete the activity. If activity was not attempted, code reason: 7-Patient Refused. 9-Not Applicable-not attempted and the patient did not perform the activity before the current illness, exacerbation or injury. 10-Not Attempted due to Environmental Limitations-(lack of equipment, weather restraints, etc.). 88-Not Attempted due to Medical Conditions or Safety Concerns. Sit to Lying (QC): 6 Lying to Sitting/Side of Bed(Q: 6 Sit to Stand (QC): 6 Weight Bearing Right Lower Extremity: Right Full Weight Bearing Left Lower Extremity: Left Full Weight Bearing Gait Training Distance: 500' Walk 10 feet (QC): 6 Walk 50 ft with 2 Turns(QC): 6 Walk 150 ft (QC): 6 Gait Assistive Device: None safe and functional with no deviation Assessment Patient is currently at independent PLOF safely and does not require continued skilled PT intervention at this time. PT to dismiss patient from services at this time. PT Inside Outside Sales Representative Goals Inside Outside Sales Representative Goals PT Inside Outside Sales Representative Goals Time Frame: April 10, 2023 Roll Left & Right (QC): 6 Sit to Lying (QC): 6 Lying-Sitting on Side/Bed(QC): 6 Sit to Stand (QC): 6 Chair/Dax-xl-Gzpyw Xfer(QC): 6 Toilet Transfer (QC): 6 Does the Patient Walk: Yes Walk 10 feet (QC): 6 Walk 50ft with 2 Turns (QC): 6 Walk 150 ft (QC): 6 1 Step (curb) (QC): 4 PT Plan Treatment/Plan Treatment Plan: Discontinue PT, goals met Treatment Plan: Bed Mobility, Education, Functional Activity Raysa, Functional Strength, Group Therapy, Gait, Safety, Therapeutic Exercise, Transfers Treatment Duration: April 10, 2023 Frequency: 6 times per week Estimated Hrs Per Day: .25 hour per day Patient and/or Family Agrees t: Yes Time Time In: 1000 Time Out: 1010 DATE: March 15, 2023 Total Billed Treatment Time: 10 Total Billed Treatment 1 visit FA 10 min FLOWER URRUTIA PT March 15, 2023 11:24
--- NOTE | 2023-03-15 11:49 | Progress Note ---
ALEX MYLES 03/15/23 1149: Progress Note Hospital Course: Pt is a 57-year-old female presented to the ED (03/11) with complaint of a cough for the last 4 months. Pt has a history of alcohol abuse, stated she last drank yesterday, but patient appeared intoxicated and smelled of alcohol. She has known cirrhosis, esophageal varices, osteoporosis, arthritis, and psoriasis. Pt was found to have BL PNA on imaging and admited to ICU for IV abx treatment and CIWA protocol. Her PNA was treated with ceftriaxone and azithromycin. She required O2 support and initially had low O2 sats (high 80's) though this improved with duoneb breathing treatments. Pt received Thiamine/folic acid/mag sulfate/multivitamin/dextrose/NaCl supplementation with chronic EtOH abuse, but only required a few doses of ativan per CIWA protocol and demonstrated only mild sxs of alcohol w/d after initial intoxication subsided. Pt continued to receive these treatments with improvement in O2 requirements and mentation each day and was able to eat more with progressively less nausea each day until 03/14 when she was determined to be stable enough to move to floor. Today she is stable and ready for discharge, will need home O2 eval before discharge. 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 She is already immuno-compromised with her cirrhosis and humira carries a high risk of sever hepatic rxns and enhancement of existing liver damage. Pt was advised to stop taking humira and revist this with her provider. ELEN JOHN DO 03/15/232121: Supervisory-Addendum Brief Verification & Attestation Participated in pt care: history, MDM, physical Personally performed: exam, history, MDM, supervision of care Care discussed with: Medical Student Procedures: n/a Results interpretation: Verified all documentation Verification and Attestation of Medical Student E/M Service A medical student performed and documented this service in my presence. I reviewed and verified all information documented by the medical student and made modifications to such information, when appropriate. I personally performed the physical exam and medical decision making. Elen John March 15, 2023,21:22 ALEX MYLES March 15, 2023 11:49 ELEN JOHN DO March 15, 2023 21:22
[2023-03-15 12:35] VITALS: BP 107/71
--- NOTE | 2023-03-15 13:44 | Occupational Ther Daily Note ---
OT Current Status-Daily Note Subjective Ambulating in halls, agrees to OT Mental Status/Objective Patient Orientation: Person, Place, Time, Situation ADL-Treatment Therapy Code Descriptions/Definitions Functional [place] Measure: 0=Not Assessed/NA 4=Minimal Assistance 1=Total Assistance 5=Supervision or Setup 2=Maximal Assistance 6=Modified [place] 3=Moderate Assistance 7=Complete IndependenceSCALE: Activities may be completed with or without assistive devices. 0-Vgeimleydo-ztenrmc completes the activity by him/herself with no assistance from a helper. 5-Set-up or Clean-up Assistance-helper sets up or cleans up; patient completes activity. [place] assists only prior to or following the activity. 4-Supervision or Touching Assistance-helper provides verbal cues and/or touching/steadying and/or contact guard assistance as patient completes activity. Assistance may be provided throughout the activity or intermittently. 3-Partial/Moderate Assistance-helper does LESS THAN HALF the effort. [place] lifts, holds or supports trunk or limbs, but provides less than half the effort. 2-Substantial/Maximal Assistance-helper does MORE THAN HALF the effort. [place] lifts or holds trunk or limbs and provides more than half the effort. 4-Eooszsmkk-umnqpe does ALL the effort. Patient does none of the effort to complete the activity. Or, the assistance of 2 or more helpers is required for the patient to complete the activity. If activity was not attempted, code reason: 7-Patient Refused. 9-Not Applicable-not attempted and the patient did not perform the activity before the current illness, exacerbation or injury. 10-Not Attempted due to Environmental Limitations-(lack of equipment, weather restraints, etc.). 88-Not Attempted due to Medical Conditions or Safety Concerns. Eating (QC): 6 Oral Hygiene (QC): 6 Shower/Bathe Self (QC): 7 (declined) Upper Body Dressing (QC): 6 Lower Body Dressing (QC): 6 On/Off Footwear: 6 Toileting Hygiene (QC): 6 Toilet Transfer (QC): 6 Education OT Patient Education: Correct positioning, Energy conservation, Progress toward Goal/Update tx plan, Rehab process, Safety issues Teaching Methods: Demonstration, Discussion Response to Teaching: Verbalize Understanding, Return Demonstration OT Carrot Buncher Goals Residential Goals Eating (QC): 6 Oral Hygiene (QC): 6 Toileting Hygiene (QC): 6 Shower/Bathe Self (QC): 6 Upper Body Dressing (QC): 6 Lower Body Dressing (QC): 6 On/Off Footwear (QC): 6 1=Demonstrate adherence to instructed precautions during ADL tasks. 2=Patient will verbalize/demonstrate understanding of assistive devices/modifications for ADL. 3=Patient will improve strength/tolerance for activity to enable patient to perform ADL's. OT Education/Plan Problem List/Assessment Assessment: No Skilled OT Needs ID'd Discharge Recommendations Plan/Recommendations: Discharge/Goals Met Treatment Plan/Plan of Care Patient would benefit from OT for education, treatment and training to promote independence in ADL's, mobility, safety and/or upper extremity function for ADL's. Plan of Care: ADL Retraining, Functional Mobility, Group Exercise/Act as Ind, UE Funct Exercise/Act Treatment Duration: March 16, 2023 Frequency: 3 times per week (3-5 TIMES PER WEEK) Estimated Hrs Per Day: .25 hour per day Agreement: Yes Rehab Potential: Fair Time Start Time: 10:10 Stop Time: 10:25 DATE: March 15, 2023 Total Time Billed (hr/min): 15 Billed Treatment Time ADL 15 min, ALANA DANIELS OT March 15, 2023 13:44
[2023-03-15 14:32] VITALS: BP 107/71
--- NOTE | 2023-03-15 18:48 | Physician Query Clarification ---
Physician Query-General Query to Physician: The medical record reflects the following clinical scenario: The patient, in the setting of History/Risk factors, Alcoholism, pneumonia, possible aspiration Clinical Findings Admission VS/LABS: HR 112, RR 20, BP 108/69, SpO2 89% sat on room air. , T 36.9, WBC 4.3, lactic acid 2.12, Treatment ER: Normal saline 1500 mL, ceftriaxone IV, azithromycin IV, Question: Do you agree with the impression of Sepsis/Severe Sepsis per Dr. Dwayne Baumann? Yes; will document Sepsis/Severe Sepsis, present on admission in the Progress Notes No; will continue current documentation in the Progress Notes Other; will document explanation of clinical findings Clinically undetermined; no explanation for clinical findings Please clarify and document your clinical opinion in the Progress Notes and Discharge Summary including the definitive and/or presumptive diagnosis, (suspected or probable), related to the above clinical findings. Please include clinical findings supporting your diagnosis. In responding to this query, please exercise your independent professional judgment. The purpose of this communication is to more accurately reflect the complexity of your patients condition. The fact that a question is asked does not imply that any particular answer is desired or expected. Thank you for timely response to this clarification. Samira Vaughn, MSN, RN Clinical Recreation Programmer [phone] [email or web address] PHYSICIAN RESPONSE: Based on the clinical findings in the record, please respond to the query above on this document as an addendum. Physician Response: Physician Response yes If you have questions please contact: Reference Archivist: Ext: Thank you for your time and cooperation. Clinical Recreation Programmer/Reference Archivist This is a permanent part of the medical record SAMIRA VAUGHN March 15, 2023 18:48 OSITO JOHN DO March 15, 2023 21:02
--- NOTE | 2023-03-15 18:56 | Physician Query Clarification ---
Physician Query-General Query to Physician: The medical record reflects the following clinical evidence: Clinical Indicators: RR 20 on admission, Has been as high as 36, frequently 20 and above, started on 2 L in the ED for sat 89%, has been on O2 since admission as high as 6 L, O2 sats 91 to 92% on 4 and 5 L (P/L=[id number]) Sat drops to 88% when placed on room air documentation of shortness of air with exertion on admission later documentation of shortness of air at rest Risk Factor(s): Alcohol intoxication, pneumonia, Smoker, Low BMI, no documentation of home 02 use Treatment: Supplemental 02, IS encouraged, Duonebs scheduled and PRN, respiratory monitoring, Discharging with 02 at home Acute respiratory failure with hypoxia, present on admission Other explanation of clinical findings Unable to determine (no explanation for clinical findings) Please clarify and document your clinical opinion in the progress notes and discharge summary including the definitive and/or presumptive diagnosis, (suspected or probable), related to the above clinical findings. Please include clinical findings supporting your diagnosis. Samira Vaughn, MSN, RN Clinical Coiled Coil Inspector [phone] [email or web address] PHYSICIAN RESPONSE: Based on the clinical findings in the record, please respond to the query above on this document as an addendum. Physician Response: Physician Response Acute hypoxic resp failure If you have questions please contact: Industrial Maintenance Mechanic: Ext: Thank you for your time and cooperation. Clinical Coiled Coil Inspector/Industrial Maintenance Mechanic This is a permanent part of the medical record SAMIRA VAUGHN March 15, 2023 18:55 OSITO JOHN DO March 15, 2023 21:03
== END 2023-03-15 15:10 | disposition home health service (06) | DRG 871 ==
LOC: EDUNIT# 15:59 → ER 16:02 → ICU 19:55 → 4TH 03-14 16:01
PROVIDERS: ADMIT Internal Medicine; ATTEND Internal Medicine
PROC: 5A0935A Assistance with Respiratory Ventilation, Less than 24 Consecutive Hours, High Flow/Velocity Cannula (ICD-10-PCS; principal; 2023-03-14)
DX: A41.9 Sepsis, unspecified organism (principal); J18.9 Pneumonia, unspecified organism; J96.01 Acute respiratory failure with hypoxia; K92.2 Gastrointestinal hemorrhage, unspecified; D84.821 Immunodeficiency due to drugs; R65.20 Severe sepsis without septic shock; I10 Essential (primary) hypertension; K21.9 Gastro-esophageal reflux disease without esophagitis; M81.0 Age-related osteoporosis without current pathological fracture; M19.90 Unspecified osteoarthritis, unspecified site; L40.9 Psoriasis, unspecified; F10.229 Alcohol dependence with intoxication, unspecified; Y90.8 Blood alcohol level of 240 mg/100 ml or more; Z20.822 Contact with and (suspected) exposure to COVID-19; F17.290 Nicotine dependence, other tobacco product, uncomplicated; Z79.899 Other long term (current) drug therapy; K70.30 Alcoholic cirrhosis of liver without ascites; D69.6 Thrombocytopenia, unspecified; F17.210 Nicotine dependence, cigarettes, uncomplicated; G43.909 Migraine, unspecified, not intractable, without status migrainosus; D64.9 Anemia, unspecified
CPT/HCPCS: 36415; 71045; 71275; 80053; 80306; 80320; 81000; 82947; 83605; 83735; 84100; 84484; 85025; 85379; 85610; 85730; 87040; 87081; 87389; 87636; 93005; 93041; 94640; 94664; 94760; 94761

== ENCOUNTER 2023-09-11 09:04 | Outpatient (CLI) | payer MEDICARE, MEDICAID ==
[~2023-09-11] VITALS: Ht 167.6 cm; Wt 48.6 kg
[~2023-09-11 09:04] MED LIST changes: +AMOX1TAB12 PO; +BENZ100C18 PO; +CALC-938 PO; +FERR325T24 PO; +FOLI1TAB33 PO; +IPRA3AMP31 INH; +MELA5TAB14 PO; +MULT-1137 PO; +ONDA4TAB11 SL
[2023-09-11] MEDS ORDERED: VITA-203 PO (12:37)
[2023-09-11] MEDS ORDERED: SECU150P2 SQ (12:45)
== END 2023-09-11 12:52 | disposition home or self-care (01) ==
LOC: PREOP 09:04
PROVIDERS: ATTEND Surgery
DX: Z01.818 Encounter for other preprocedural examination (principal)

== ENCOUNTER 2023-09-23 10:18 | Day surgery (SDC) | payer MEDICARE, MEDICAID ==
[~2023-09-23] VITALS: Ht 167 cm; Wt 48.6 kg
[~2023-09-23 10:18] MED LIST changes: +SECU150P2 SQ; +VITA-203 PO
[2023-09-23] MEDS ORDERED: LACTATED RINGERS 1,000 ML 1,000 ML IV STA (10:26)
[2023-09-23] MEDS ORDERED: HURRICAINE EXT TUBE (BENZOCAINE) XX PRN (10:30)
--- NOTE | 2023-09-23 10:43 | Progress Note-Pre Operative ---
Pre-Operative Progress Note Date of Available H&P: Sep 10, 2023 Date H&P Reviewed: Sep 23, 2023 Time H&P Reviewed: 10:41 History & Physical: H&P Reviewed, Patient Examed, No changes noted Pre-Operative Diagnosis: R/O Varices, hx of Cirrhosis HOMAR DAY DO Sep 23, 2023 10:42
[2023-09-23 10:49] VITALS: BP 118/80
[2023-09-23 11:35] VITALS: BP 114/67
--- NOTE | 2023-09-23 11:39 | Progress Note-Post Operative ---
Post-Operative Progess Note Surgeon (s)/Merchandising Team Lead (s) Surgeon HOMAR DAY DO Merchandising Team Lead: none Pre-Operative Diagnosis R/O Varices, hx of Cirrhosis Post-Operative Diagnosis Severe Esophagitis Gastritis Procedure & Operative Findings Date of Procedure 09/23/23 Procedure Performed/Findings EGD with biopsy PROCEDURE NOTE: After informed consent was obtained, the patient was brought to the endoscopy suite, placed in bed in left lateral decubitus position. She was administered IV sedation by the DEBRANDER who then monitored vitals the entire time, heart rate, blood pressure and pulse ox and the scope was inserted down the mouth through the esophagus into the stomach. On the way down, noted severe esophagitis, but did not see any varices. I took a picture of the esophagitis and then pushed into the stomach. Noted some gastritis, pushed past the antrum into the duodenum. Duodenum looked good. Pulled back and did a biopsy of the antrum, then retroflexed the scope and did not see a hiatal hernia. I pulled the scope into the GE junction, took a picture of the GE junction. Pushed the scope back into the stomach, suctioned all the air out of the stomach. At this point pulled the scope up the esophagus, took more pictures of the esophagus and pulled the scope out the mouth. The patient tolerated the procedure, and she recovered in endoscopy suite. Anesthesia Type IV sedation by DEBRANDER Estimated Blood Loss Estimated blood loss (mL): scant Specimens/Packing Specimens Removed antral bx Body of stomach bx HOMAR DAY DO Sep 23, 2023 11:39
[2023-09-23 11:40] VITALS: BP 104/63
[2023-09-23] MEDS ORDERED: SUCR1TAB36 PO (11:41)
--- NOTE | 2023-09-23 11:43 | Endoscopy Discharge Instruct ---
Endo Procedure/Findings Findings 1.: Aviles's Esophagus 2.: Gastritis Discharge Instructions - Activity: You might feel a little sleepy until tomorrow. This is due to the medicine you received to relax you. Until tomorrow, you should: NOT drive a car, operate machinery or power tools. NOT drink any alcoholic beverages. NOT make any important decisions or sign importortant papers. Do not return to work until tomorrow, unless otherwise instructed. Resume previous activities tomorrow. Diet: Start by taking liquids. If you tolerate liquids, advance to soft food. DO NOT eat anything with sharp edges, like chips etc. 1.: EGD in 1 year Notify Physician - If you experience excessive bleeding, unusual abdominal pain, fever, or chest pain, contact your doctor immediately. Follow-Up: Other Follow up Follow up in my office in one week. HOMAR DAY DO Sep 23, 2023 11:43
[2023-09-23 11:44] VITALS: BP 105/69
--- NOTE | 2023-09-23 11:48 | Anesthesia-General Post-Op ---
MAC Patient Condition Mental Status/LOC: Same as Preop Cardiovascular: Satisfactory Nausea/Vomiting: Absent Respiratory: Satisfactory Pain: Controlled Complications: Absent Post Op Complications Complications None Follow Up Care/Instructions Patient Instructions None needed. Anesthesiology Discharge Order Discharge Order Patient is doing well, no complaints, stable vital signs, no apparent adverse anesthesia problems. No complications reported per nursing. DIAMANTE VAUGHN CRNA Sep 23, 2023 11:48
[2023-09-23 11:50] VITALS: BP 116/79
[2023-09-23 12:15] VITALS: BP 116/79
== END 2023-09-23 12:15 | disposition home or self-care (01) ==
LOC: ENDO 10:18
PROVIDERS: ATTEND Surgery
DX: K29.70 Gastritis, unspecified, without bleeding (principal); K20.90 Esophagitis, unspecified without bleeding; K31.89 Other diseases of stomach and duodenum; I85.00 Esophageal varices without bleeding; K70.30 Alcoholic cirrhosis of liver without ascites
CPT/HCPCS: 88305